=== PATIENT | female | born 1955 | race Caucasian/White ===

== ENCOUNTER 2020-09-11 21:57 | Inpatient (IN) | payer BC, MEDICARE ==
[~2020-09-11] VITALS: Ht 162.6 cm; Wt 51.3 kg
[~2020-09-11 21:57] MED LIST changes: -LORazepam 0.5 MG tablet PO PRN; -LORazepam 2 mg/ml vial IV ONE; -fluvoxamine 25 MG tablet PO SCH; -levoTHYROXINE 25mcg tablet PO SCH; -lithium carbonate 150mg capsule PO SCH; -lithium carbonate 150mg capsule PO STA; -mirtazapine 15mg tablet PO SCH; -normal saline 1000ml 1,000 ML IV ONE
[2020-09-11] MEDS ORDERED: acetaminophen 325mg tablet PO PRN ×2 (22:30)
[2020-09-11] MEDS ORDERED: magnesium hydroxide 30ml (MOM) UD suspension PO PRN (22:30)
[2020-09-11] MEDS ORDERED: loperamide 2mg capsule PO PRN (22:30)
[2020-09-11] MEDS ORDERED: mag hydrox/Alum hydrox/simeth 30ml oral suspension PO PRN (22:30)
[2020-09-11 22:41] VITALS: BP 112/69
--- NOTE | 2020-09-11 23:50 | NUR ---
NURSE ADMISSION NOTE: Pt was brought up to [facility] from ER via [facility] accompanied by staff on 09/11/2020 at 2140. Pt transferred from [facility] to [facility] bed, total assist. Belongings inventoried, 2 RN skin check completed. 5150 advisement completed and explained to pt. Pt placed on LOS r/t gomes catheter and IV. Pt was brought into ED on 09/11/20, reportedly catatonic by . She was unable to speak or move. reports she was taken off lithium 41 days ago and since then has been going in and out of catatonia. She received her 2nd ECT on 09/10 and was reportedly doing okay after, but on 09/11 after a nap she was unable to speak or move, and was brought into [facility]. Per record reported that she had a similar episode 3 years ago. She was receiving ativan 1mg IV Q6H in ER which was a continued order for [facility]. Pt is currently on sodium chloride solution Q10H, 100/ML/HR. Pt has Right wrist IV, 20 G. Pt has gomes catheter 16 peruvian, secured to left leg gravity draining clear, yellow. Per chart pt has been unable to urinate on her own and has a hx of hesitancy. IV fluids necessary due to inability to open mouth. Medical Hx per chart: Bipolar, anxiety, hypothyroidism, TBI is adult caregiver and very supportive, contact info : Sridhar Austin phone #[phone]
[2020-09-12] MEDS: normal saline 1000ml 1,000 ML IV SCH ×3 (02:06→21:30)
[2020-09-12] MEDS: LORazepam 2 mg/ml vial IV SCH ×4 (02:06→20:25)
--- NOTE | 2020-09-12 03:06 | NUR ---
Nursing Progress Note: Legal hold: 5150 ending on 09/14/20 2140 Client on voluntary/involuntary status for GD/DTS/DTO: GD Report received from nurse with use of SBAR: yes from ER Why are they here: Pt was brought into ED on 09/11/20, reportedly catatonic by . She was unable to speak or move. reports she was taken off lithium 41 days ago and since then has been going in and out of catatonia. She received her 2nd ECT on 09/10 and was reportedly doing okay after, but on 09/11 after a nap she was unable to speak or move, and was brought into [facility]. Per record reported that she had a similar episode 3 years ago. She was receiving ativan 1mg IV Q6H in ER which was a continued order for [facility]. Pt is currently on sodium chloride solution Q10H, 100/ML/HR. Pt has Right wrist IV, 20 G. Pt has gomes catheter 16 malaysian, secured to left leg gravity draining clear, yellow. Per chart pt has been unable to urinate on her own and has a hx of hesitancy. IV fluids necessary due to inability to open mouth. Medical Hx per chart: Bipolar, anxiety, hypothyroidism, TBI Assessment What has happened this shift: Pt was admitted this shift and unable to speak or move upon admission. LOS due to gomes and IV, total care. Pt being turned Q2 hours. At around 0100 pt began being able to move her left arm slightly and started saying words. By 0200 pt was able to speak in sentences. She is still only able to move her arms slightly, but she is not as rigid as when she first arrived on the unit. Pt states, "I was doing okay and then I suddenly locked up, I couldn't speak to my or move." "They took me off my lithium and ativan to do ECT." Human Resources Compliance Manager was able to now ask her some questions that were previously unable to be answered by her. She denies feeling suicidal at all and is not experiencing any AH/VH. Pt states she is feeling relieved because she can talk again. Pt says that normally she ambulates with a walker and is independent. She states that her is her "best friend" and not being able to answer him was very scary for her. Pt denies being in any pain. She is very cooperative and thankful to staff. Pt still feels unsure of trying to sip any liquid, so she is given ice chips which she enjoys because her mouth is feeling dry. S/I, H/I: denies A/VH: denies Sleep: see sleep assessment ADL's: total assist Group attendance:NA Were meds taken: IV med administered Any med S/E: YARELIS Mental Status Exam Appearance: WNL Eye contact: good Behavior: cooperative, limited due to inability to move Speech: pt went from being unable to move her mouth to speaking in sentences Mood: hopeful Affect: flat with some brightening Thought process: linear Thought Content: thinking about her , glad to be able to speak Cognition: good Insight: good Judgment: good Interventions PRN's used: NA Therapeutic interventions: LOS due to IV, gomes, total care. Physical assessment and 1:1 bedside assessment. Therapeutic listening and reassurance. Medication administration and education. Restraints/seclusion/emergency medication: NA Justification of Continued Inpatient Treatment: Pt needs crisis intervention and medication stabilization.
[2020-09-12] MEDS ORDERED: levoTHYROXINE 75mcg tablet PO SCH (07:00)
[2020-09-12 07:29] LABS: CHOL/HDL RATIO 3.7 (0.00-4.99); CHOLESTEROL 139 MG/DL (0-200); HDL CHOLESTEROL 38 MG/DL (35-60); LDL CHOLESTEROL 83 MG/DL (50-100); TRIGLYCERIDES 147 MG/DL (20-135)
[2020-09-12 07:31] LABS: HEMOGLOBIN A1C 5.7 % (4.5-6.2)
[2020-09-12 08:00] VITALS: BP 116/67
[2020-09-12] MEDS ORDERED: ascorbic acid 500mg tablet PO SCH (08:00)
[2020-09-12] MEDS ORDERED: amantadine 100 MG capsule PO SCH (08:00)
[2020-09-12] MEDS: docusate sod 100mg capsule PO SCH ×2 (08:16→21:12)
[2020-09-12] MEDS: fluvoxamine 25 MG tablet PO SCH ×2 (08:16→21:13)
[2020-09-12] MEDS ORDERED: lithium carbonate 150mg capsule PO ONE (12:10)
--- NOTE | 2020-09-12 15:29 | NUR ---
Nursing Progress Note: Legal hold: 5150 ending on 09/14/200 Client on voluntary/involuntary status for GD/DTS/DTO: GD Report received from nurse with use of SBAR: yes from ER Why are they here: Pt was brought into ED on 09/11/20, reportedly catatonic by . She was unable to speak or move. reports she was taken off lithium 41 days ago and since then has been going in and out of catatonia. She received her 2nd ECT on 09/10 and was reportedly doing okay after, but on 09/11 after a nap she was unable to speak or move, and was brought into [facility]. Per record reported that she had a similar episode 3 years ago. She was receiving ativan 1mg IV Q6H in ER which was a continued order for [facility]. Pt is currently on sodium chloride solution Q10H, 100/ML/HR. Pt has Right wrist IV, 20 G. Pt has gomes catheter 16 italian, secured to left leg gravity draining clear, yellow. Per chart pt has been unable to urinate on her own and has a hx of hesitancy. IV fluids necessary due to inability to open mouth. Medical Hx per chart: Bipolar, anxiety, hypothyroidism, TBI Assessment What has happened this shift: Patient was asleep at change of shift and awake before breakfast. Patient was able to speak in full sentences. Patient was preoccupied with her Gomes Catheter which appeared clogged but with patient moving seemed to start draining well. Patient does not have any pain on palpation of her bladder. Patient denies suicidal/homicidal ideation. Patient is depressed. Patient felt like she needed to have a BM and RN and tech assisted patient to the , ambulatory with assistance. Patient able to sit on the toilet without any help. Patient had a large hard BM. Patient ambulatory back to bed with assistance. S/I, H/I: denies A/VH: denies Sleep: cat napped today ADL's: total assist Group attendance:NA Were meds taken: IV and PO Any med S/E: Mental Status Exam Appearance: WNL Eye contact: good Behavior: cooperative Speech: Normal speech Mood: Depressed Affect: flat Thought process: linear Thought Content: thinking about her , glad to be able to speak Cognition: good Insight: good Judgment: good Interventions PRN's used: NA Therapeutic interventions: LOS due to IV, gomes, total care. Physical assessment and 1:1 bedside assessment. Therapeutic listening and reassurance. Medication administration and education. Restraints/seclusion/emergency medication: NA Justification of Continued Inpatient Treatment: Pt needs crisis intervention and medication stabilization.
--- NOTE | 2020-09-12 18:06 | NUR ---
Frank Cath removal. Placed in E.D. for convenience per Dr Brandon's note. Patient did not want Frank removed. Patient will have to share a bedside commode over the toilet. Patient's roommate is not happy. Needs cleaning between sittings. Patient will need 2 person assist to BR. RN did place pullup on patient and at bedside.
[2020-09-12 20:00] VITALS: BP 101/61
[2020-09-12] MEDS ORDERED: fluvoxamine 25 MG tablet PO SCH (21:00)
[2020-09-12] MEDS ORDERED: lithium carbonate 300mg SR tablet (LithoBID) PO SCH (21:00)
[2020-09-12] MEDS ORDERED: mirtazapine 15mg tablet PO SCH (21:00)
[2020-09-12] MEDS: mirtazapine 15mg tablet PO SCH (21:13)
[2020-09-13] MEDS: LORazepam 2 mg/ml vial IV SCH ×4 (02:17→20:23)
--- NOTE | 2020-09-13 05:07 | NUR ---
Nursing Progress Note: Legal hold: 5150 ending on 09/14/200 Client on voluntary/involuntary status for GD/DTS/DTO: GD Report received from nurse with use of SBAR: yes from Nhi CABEZAS Why are they here: Pt was brought into ED on 09/11/20, reportedly catatonic by . She was unable to speak or move. reports she was taken off lithium 41 days ago and since then has been going in and out of catatonia. She received her 2nd ECT on 09/10 and was reportedly doing okay after, but on 09/11 after a nap she was unable to speak or move, and was brought into [facility]. Per record reported that she had a similar episode 3 years ago. She was receiving ativan 1mg IV Q6H in ER which was a continued order for [facility]. Pt is currently on sodium chloride solution Q10H, 100/ML/HR. Pt has Right wrist IV, 20 G. Pt has gomes catheter 16 khmer, secured to left leg gravity draining clear, yellow. Per chart pt has been unable to urinate on her own and has a hx of hesitancy. IV fluids necessary due to inability to open mouth. Medical Hx per chart: Bipolar, anxiety, hypothyroidism, TBI Assessment What has happened this shift: Pt is on line of sight due to IV fluids and restricted mobility, although she is improving. Pt is able to answer questions on 1:1 assessment, her speech is clear, her mouth moves minimally and she is lacking expression. She asks freelance writer to go over her medications, freelance writer goes over all scheduled medications and provides medication education, pt verbalizes understanding. Client Service Coordinator asks if pt is able to feel when she needs to urinate or have a BM, pt states she is able to. Client Service Coordinator encourages to pt be vocal and alert staff so we can help her get to the bathroom and back, she verbalizes understanding. PT toileted and was able to urinate with no issues. Pt slept soundly. S/I, H/I: denies A/VH: denies Sleep: see sleep assessment ADL's: total assist Group attendance:NA Were meds taken: IV and PO Any med S/E: Mental Status Exam Appearance: WNL Eye contact: good Behavior: cooperative Speech: Normal speech Mood: Depressed Affect: flat, restricted Thought process: linear Thought Content:getting rest Cognition: good Insight: good Judgment: good Interventions PRN's used: NA Therapeutic interventions: LOS due to IV, Physical assessment and 1:1 bedside assessment. Therapeutic listening and reassurance. Medication administration and education. Restraints/seclusion/emergency medication: NA Justification of Continued Inpatient Treatment: Pt needs crisis intervention and medication stabilization.
[2020-09-13 07:38] VITALS: BP 110/57
[2020-09-13] MEDS: levoTHYROXINE 25mcg tablet PO SCH (07:51)
[2020-09-13] MEDS: docusate sod 100mg capsule PO SCH ×2 (07:51→20:26)
[2020-09-13] MEDS: fluvoxamine 25 MG tablet PO SCH ×2 (07:51→20:26)
[2020-09-13] MEDS: lithium carbonate 150mg capsule PO SCH (07:52)
[2020-09-13] MEDS: normal saline 1000ml 1,000 ML IV SCH ×2 (07:53→18:02)
[2020-09-13 20:00] VITALS: BP 111/66
[2020-09-13] MEDS: mirtazapine 15mg tablet PO SCH (20:26)
[2020-09-14] MEDS: LORazepam 2 mg/ml vial IV SCH ×4 (02:51→20:57)
[2020-09-14] MEDS: normal saline 1000ml 1,000 ML IV SCH ×3 (03:38→23:39)
--- NOTE | 2020-09-14 04:20 | NUR ---
Nursing Progress Note: Legal hold: 5150 ending on 09/14/200 Client on voluntary/involuntary status for GD/DTS/DTO: GD Report received from nurse with use of SBAR: yes from hNi CABEZAS Why are they here: Pt was brought into ED on 09/11/20, reportedly catatonic by . She was unable to speak or move. reports she was taken off lithium 41 days ago and since then has been going in and out of catatonia. She received her 2nd ECT on 09/10 and was reportedly doing okay after, but on 09/11 after a nap she was unable to speak or move, and was brought into [facility]. Per record reported that she had a similar episode 3 years ago. She was receiving ativan 1mg IV Q6H in ER which was a continued order for [facility]. Pt is currently on sodium chloride solution Q10H, 100/ML/HR. Pt has Right wrist IV, 20 G. Pt has gomes catheter 16 upper sorbian, secured to left leg gravity draining clear, yellow. Per chart pt has been unable to urinate on her own and has a hx of hesitancy. IV fluids necessary due to inability to open mouth. Medical Hx per chart: Bipolar, anxiety, hypothyroidism, TBI Assessment What has happened this shift: Patient is low fowlers in bed following shift change. 1:1 Interview at bedside. Patient is oriented to person and place, somewhat to situation. Patient expresses a flat affect. Speech is quiet, patient states she feels tired. Patient is medication compliant. She denies S/I, H/I, she denies any hallucinations. Patient is direct observation, a sitter is at bedside. IV NaCl is advancing at 100 ml an hour. Ativan is being given IV for patients lessening catatonic state. This patient is cooperative and friendly. Patient requests a review of medications prior to administration. This development writer complied. Patient is up to bedside commode with assist. Patient primarily sleeps this shift. S/I, H/I: Denies. A/VH: Denies. Sleep: Will tally at 0500 hours. ADL's: Total assist. Group attendance: No group on nights. Were meds taken: Yes, patient is medication compliant. Any med S/E: None noted or observed. Mental Status Exam Appearance: WNL Eye contact: Good. Behavior: Cooperative. Speech: Quiet, normal rate and rhythm. Mood: Depressed Affect: Flat, restricted. Thought process: Linear Thought Content: Getting rest. Cognition: Good. Insight: Good. Judgment:Good. Interventions PRN's used: None. Therapeutic interventions: LOS due to IV, Physical assessment and 1:1 bedside assessment. Therapeutic listening and reassurance. Medication administration and education. Restraints/seclusion/emergency medication: NA Justification of Continued Inpatient Treatment: Pt needs crisis intervention and medication stabilization.
[2020-09-14] MEDS: fluvoxamine 25 MG tablet PO SCH ×2 (07:27→21:16)
[2020-09-14] MEDS: levoTHYROXINE 25mcg tablet PO SCH (07:27)
[2020-09-14] MEDS: docusate sod 100mg capsule PO SCH ×2 (07:27→20:57)
[2020-09-14] MEDS: lithium carbonate 150mg capsule PO SCH (07:27)
[2020-09-14 07:39] VITALS: BP 119/70
--- NOTE | 2020-09-14 16:37 | NUR ---
Nursing Progress Note: Legal hold: 5150 ending on 09/14/200 Client on involuntary status for GD/DTS/DTO: GD Report received from WILLIAM Alston with use of SBAR Why are they here: Pt was brought into ED on 09/11/20, reportedly catatonic by . She was unable to speak or move. reports she was taken off lithium 41 days ago and since then has been going in and out of catatonia. She received her 2nd ECT on 09/10 and was reportedly doing okay after, but on 09/11 after a nap she was unable to speak or move, and was brought into [facility]. Per record reported that she had a similar episode 3 years ago. She was receiving ativan 1mg IV Q6H in ER which was a continued order for [facility]. Pt is currently on sodium chloride solution Q10H, 100/ML/HR. Pt has Right wrist IV, 20 G. Pt has gomes catheter 16 frisian, secured to left leg gravity draining clear, yellow. Per chart pt has been unable to urinate on her own and has a hx of hesitancy. IV fluids necessary due to inability to open mouth. Medical Hx per chart: Bipolar, anxiety, hypothyroidism, TBI Assessment What has happened this shift: Patient sleeping in bed at shift change. Normal saline is running at 100 ml/hr. I.V. Site right hand is CD&I. Patient complains of feeling exhausted. LOS was terminated at 11:00. Patient demonstrated the ability to push the call light when needing assistance, with frequent checks on patient in addition to q15 safety checks. Patient is urinating large amounts of urine throughout the day. Patient was able to ambulate 50 feet today. S/I, H/I: denies A/VH: denies Sleep: napped on and off during dayshift. ADL's: 2 person to ambulate to bedside commode. Can feed self. Total assist Group attendance:NA Were meds taken: IV and PO Any med S/E: None noted or reported. Mental Status Exam Appearance: Elderly small framed woman lying in bed dressed in a green dress. Eye contact: good Behavior: cooperative Speech: Soft. Mood: Depressed Affect: flat Thought process: linear Thought Content: Wanting to go home. Cognition: good Insight: good Judgment: good Interventions PRN's used: NA Therapeutic interventions: LOS due to IV, total care. Physical assessment and 1:1 bedside assessment. Therapeutic listening and reassurance. Medication administration and education. Restraints/seclusion/emergency medication: NA Justification of Continued Inpatient Treatment: Pt needs crisis intervention and medication stabilization.
[2020-09-14 20:00] VITALS: BP 113/68
[2020-09-14] MEDS: mirtazapine 15mg tablet PO SCH (20:57)
[2020-09-15] MEDS: LORazepam 2 mg/ml vial IV SCH ×4 (02:30→19:59)
--- NOTE | 2020-09-15 03:53 | NUR ---
Nursing Progress Note: Legal hold: 5150 ending on 09/14/200 Client on involuntary status for GD/DTS/DTO: GD Report received from JOCELYNN Hankins with use of SBAR Why are they here: Pt was brought into ED on 09/11/20, reportedly catatonic by . She was unable to speak or move. reports she was taken off lithium 41 days ago and since then has been going in and out of catatonia. She received her 2nd ECT on 09/10 and was reportedly doing okay after, but on 09/11 after a nap she was unable to speak or move, and was brought into [facility]. Per record reported that she had a similar episode 3 years ago. She was receiving ativan 1mg IV Q6H in ER which was a continued order for [facility]. Pt is currently on sodium chloride solution Q10H, 100/ML/HR. Pt has Right wrist IV, 20 G. Pt has gomes catheter 16 bulgarian, secured to left leg gravity draining clear, yellow. Per chart pt has been unable to urinate on her own and has a hx of hesitancy. IV fluids necessary due to inability to open mouth. Medical Hx per chart: Bipolar, anxiety, hypothyroidism, TBI Assessment What has happened this shift: Patient is in her room, mid fowlers in hospital bed. She awakens to voice and is alert. Patient has no 1:1 sitter as no tech is available per report at shift change. The patient has a NaCl IV running at 100 ml per hour. Frequent rounding checks are being done to check on patient needs. The patient is educated about her call dickens, she has used it to summon staff this shift. Patient is up to bedside commode to void multiple times this shift with assistance. IV Ativan is continued for treatment of catatonia. Patient exhibits quiet speech. She is medication compliant. Patient denies S/I or H/I. She denies hallucinations. Patient self repositions. Patient is is manually shifted also, at patients request the head of her bed is lowered for comfort. Patient voided in bed once during the night. Patient was cleaned, linen and bedding changed. S/I, H/I: Denies. A/VH: Denies. Sleep: Will tally at 0500 hour. ADL's: Needs assistance for toileting and ambulation. Group attendance: No groups on shift boss. Were meds taken: Yes, IV/PO. Medication compliant. Any med S/E: None noted or reported. Mental Status Exam Appearance: Elderly female, dressed in unit atire. Eye contact: Good. Behavior: Cooperative. Speech: Soft voice, regular rhythm. Mood: Depressed. Affect: Flat. Thought process: Linear. Thought Content: Sleepy, did not elaborate to this continuity writer. Cognition: Alert. Insight: Fair. Judgment: Fair. Interventions PRN's used: None. Therapeutic interventions: LOS due to IV, total care. Physical assessment and 1:1 bedside assessment. Therapeutic listening and reassurance. Medication administration and education. Restraints/seclusion/emergency medication: NA Justification of Continued Inpatient Treatment: Pt needs crisis intervention and medication stabilization.
[2020-09-15 07:52] VITALS: BP 135/79
[2020-09-15] MEDS: lithium carbonate 150mg capsule PO SCH (08:01)
[2020-09-15] MEDS: levoTHYROXINE 25mcg tablet PO SCH (08:01)
[2020-09-15] MEDS: docusate sod 100mg capsule PO SCH ×2 (08:01→19:59)
[2020-09-15] MEDS: fluvoxamine 25 MG tablet PO SCH ×3 (08:30→20:49)
[2020-09-15] MEDS: normal saline 1000ml 1,000 ML IV SCH ×2 (11:44→19:52)
--- NOTE | 2020-09-15 17:20 | NUR ---
Nursing Progress Note: Legal hold: vol Report received from WILLIAM Stanley with use of SBAR Why are they here: Pt was brought into ED on 09/11/20, reportedly catatonic by . She was unable to speak or move. reports she was taken off lithium 41 days ago and since then has been going in and out of catatonia. She received her 2nd ECT on 09/10 and was reportedly doing okay after, but on 09/11 after a nap she was unable to speak or move, and was brought into [facility]. Per record reported that she had a similar episode 3 years ago. She was receiving ativan 1mg IV Q6H in ER which was a continued order for [facility]. Pt is currently on sodium chloride solution Q10H, 100/ML/HR. Pt has Right wrist IV, 20 G. Pt has gomes catheter 16 kyrgyz, secured to left leg gravity draining clear, yellow. Per chart pt has been unable to urinate on her own and has a hx of hesitancy. IV fluids necessary due to inability to open mouth. Medical Hx per chart: Bipolar, anxiety, hypothyroidism, TBI Assessment What has happened this shift: Patient sleeping in bed at shift change. Normal saline is running at 100 ml/hr. I.V. Site right hand is CD&I. IV stopped during meals so pt can unhook and go to the dining room. Patient complains of feeling exhausted. Her speech is very low in volume. Frequent requests to sit on commode. Pt has flat/sad affect. Pt does not participate well in assessment. S/I, H/I: denies A/VH: denies Sleep: napped on and off during dayshift. ADL's: 2 person to ambulate to bedside commode. Can feed self. Total assist Group attendance:NA Were meds taken: IV and PO Any med S/E: None noted or reported. Mental Status Exam Appearance: Elderly small framed woman lying in bed dressed in a green dress. Eye contact: good Behavior: cooperative Speech: Soft. Mood: Depressed Affect: flat Thought process: linear Thought Content: Wanting to go home. Cognition: good Insight: good Judgment: good Interventions PRN's used: NA Therapeutic interventions: LOS due to IV, total care. Physical assessment and 1:1 bedside assessment. Therapeutic listening and reassurance. Medication administration and education. Restraints/seclusion/emergency medication: NA Justification of Continued Inpatient Treatment: Pt needs crisis intervention and medication stabilization.
[2020-09-15 19:25] VITALS: BP 121/74
[2020-09-15] MEDS: mirtazapine 15mg tablet PO SCH ×2 (20:00→20:57)
--- NOTE | 2020-09-15 21:17 | NUR ---
Nursing Progress Note: Legal hold: vol Report received from WILLIAM Hankins with use of SBAR Why are they here: Pt was brought into ED on 09/11/20, reportedly catatonic by . She was unable to speak or move. reports she was taken off lithium 41 days ago and since then has been going in and out of catatonia. She received her 2nd ECT on 09/10 and was reportedly doing okay after, but on 09/11 after a nap she was unable to speak or move, and was brought into [facility]. Per record reported that she had a similar episode 3 years ago. She was receiving ativan 1mg IV Q6H in ER which was a continued order for [facility]. Pt is currently on sodium chloride solution Q10H, 100/ML/HR. Pt has Right wrist IV, 20 G. Pt has gomes catheter 16 uzbek, secured to left leg gravity draining clear, yellow. Per chart pt has been unable to urinate on her own and has a hx of hesitancy. IV fluids necessary due to inability to open mouth. Medical Hx per chart: Bipolar, anxiety, hypothyroidism, TBI Assessment What has happened this shift: Pt was in group room at change of shift. Pt requested to be returned to her room and was assisted to bed. Pts IV was started and NaCL is running at 100 ml/hr. I.V. Site right hand is CD&I. Patient complains of feeling fatigued and is soft spoken. Frequent requests to sit on commode. Pt has flat/sad affect. S/I, H/I: denies A/VH: denies Sleep: see sleep hours ADL's: 2 person to ambulate to bedside commode. Can feed self. Total assist Group attendance:NA Were meds taken: IV and PO Any med S/E: None noted or reported. Mental Status Exam Appearance: Elderly small framed woman dressed in a green scrubs Eye contact: good Behavior: cooperative Speech: Soft. Mood: Depressed Affect: flat Thought process: linear Thought Content: Wanting to go home. Cognition: good Insight: good Judgment: good Interventions PRN's used: NA Therapeutic interventions: LOS due to IV, total care. Physical assessment and 1:1 bedside assessment. Therapeutic listening and reassurance. Medication administration and education. Restraints/seclusion/emergency medication: NA Justification of Continued Inpatient Treatment: Pt needs crisis intervention and medication stabilization.
[2020-09-16] MEDS: LORazepam 2 mg/ml vial IV SCH (02:55)
[2020-09-16] MEDS: normal saline 1000ml 1,000 ML IV SCH (03:08)
[2020-09-16 08:00] VITALS: BP 138/87
[2020-09-16] MEDS: levoTHYROXINE 25mcg tablet PO SCH (08:13)
[2020-09-16] MEDS: docusate sod 100mg capsule PO SCH ×2 (08:13→20:00)
[2020-09-16] MEDS: lithium carbonate 150mg capsule PO SCH (08:13)
[2020-09-16] MEDS: fluvoxamine 25 MG tablet PO SCH ×2 (08:14→20:00)
[2020-09-16] MEDS ORDERED: LORazepam 1 MG tablet PO SCH (09:10)
--- NOTE | 2020-09-16 10:02 | NUR ---
Initial: Pt admit DX catatonia on 5150 hold hx recently taken off Capac which has now been restarted per EMR. Pt AOx1 PO 0-25% avg MM5/vegetarian diet fluctuating w/ ~25% more recent meals not meeting needs. ALOC likely to impact PO; is receiving remeron. NILESH d/w RN regarding MVI if MD agreeable. RD recommends ensure enlive TIDWM; MD notified. LBM 09/15. Will continue to monitor for PO acceptance and additional protein/kcal needs. Rec: 1. continue vegetarian/MM5 diet per MD; encourage PO/assist w/ meals 2. MVI supplementation on vegetarian diet 3. ensure enlive TIDWM 4. bowel care per rx 5. weekly wts Addendum: 09/16/20 at [address] Amended: Links added.
[2020-09-16] MEDS: LORazepam 1 MG tablet PO SCH ×2 (13:26→21:00)
--- NOTE | 2020-09-16 13:54 | NUR ---
Nano's , Bartolo (ph# [phone]) called. He wanted to make sure social media marketing analyst knows that Nano has to be able to walk (with use of a walker) in order to return home. He reported he works during the day and she needs to be able to be ambulatory even if someone comes in to help her. He reported he is going to drop off some hygiene products for her as she had requested them. MARCELLO Ayers
--- NOTE | 2020-09-16 16:56 | NUR ---
Nursing Progress Note: Legal hold: vol Report received from WILLIAM Bettencourt with use of SBAR Why are they here: Pt was brought into ED on 09/11/20, reportedly catatonic by . She was unable to speak or move. reports she was taken off lithium 41 days ago and since then has been going in and out of catatonia. She received her 2nd ECT on 09/10 and was reportedly doing okay after, but on 09/11 after a nap she was unable to speak or move, and was brought into [facility]. Per record reported that she had a similar episode 3 years ago. She was receiving ativan 1mg IV Q6H in ER which was a continued order for [facility]. Pt is currently on sodium chloride solution Q10H, 100/ML/HR. Pt has Right wrist IV, 20 G. Pt has gomes catheter 16 mozambican, secured to left leg gravity draining clear, yellow. Per chart pt has been unable to urinate on her own and has a hx of hesitancy. IV fluids necessary due to inability to open mouth. Medical Hx per chart: Bipolar, anxiety, hypothyroidism, TBI Assessment What has happened this shift: Received pt sleeping in her bed. IV discontinued at the beginning of shift and pt. came to all meals. With encouragement, pt eating about 30% of her meals and drinking liquids. Pt has flat affect and continues to endorse depression and anxiety. Pt IVP Ativan changed to pill form. Pt concerned with taking too much Ativan making her lethargic, so Ativan changed to TID per MD. Pt ambulated 3x throughout the day about 20 feet each time. This is a 2 person process with one staff following behind with a wheelchair and the other helping move the walker along which she has difficulty doing on her own. S/I, H/I: denies A/VH: denies Sleep: napped on and off during dayshift. ADL's: 2 person to ambulate to bedside commode. Can feed self. Total assist Group attendance:NA Were meds taken: IV and PO Any med S/E: None noted or reported. Mental Status Exam Appearance: Elderly small framed woman lying in bed dressed in a green dress. Eye contact: good Behavior: cooperative Speech: Soft. Mood: Depressed Affect: flat Thought process: linear Thought Content: Wanting to go home. Cognition: good Insight: good Judgment: good Interventions PRN's used: NA Therapeutic interventions: LOS due to IV, total care. Physical assessment and 1:1 bedside assessment. Therapeutic listening and reassurance. Medication administration and education. Restraints/seclusion/emergency medication: NA Justification of Continued Inpatient Treatment: Pt needs crisis intervention and medication stabilization.
[2020-09-16 20:24] VITALS: BP 130/74
[2020-09-16] MEDS: mirtazapine 15mg tablet PO SCH (21:23)
--- NOTE | 2020-09-16 22:41 | NUR ---
Nursing Progress Note: Legal hold: vol Report received from WILLIAM Hankins with use of SBAR Why are they here: Pt was brought into ED on 09/11/20, reportedly catatonic by . She was unable to speak or move. reports she was taken off lithium 41 days ago and since then has been going in and out of catatonia. She received her 2nd ECT on 09/10 and was reportedly doing okay after, but on 09/11 after a nap she was unable to speak or move, and was brought into [facility]. Per record reported that she had a similar episode 3 years ago. She was receiving ativan 1mg IV Q6H in ER which was a continued order for [facility]. Pt is currently on sodium chloride solution Q10H, 100/ML/HR. Pt has Right wrist IV, 20 G. Pt has gomes catheter 16 mosotho, secured to left leg gravity draining clear, yellow. Per chart pt has been unable to urinate on her own and has a hx of hesitancy. IV fluids necessary due to inability to open mouth. Medical Hx per chart: Bipolar, anxiety, hypothyroidism, TBI Assessment What has happened this shift: Pt was in the group room at change of shift, Pt ambulated back to her room from the group room with fww and two person assistance. Gait belt was used and patient pushes her walker forward while taking steps. Pt was encouraged to drink fluids but drinks minimal amounts. Pt is med compliant but declines ativan stating it makes her feel too tired. S/I, H/I: denies A/VH: denies Sleep: napped on and off during dayshift. ADL's: 2 person to ambulate to bedside commode. Can feed self. Total assist Group attendance:NA Were meds taken: yes Any med S/E: pt states ativan is making her too tired Mental Status Exam Appearance: Elderly small framed woman lying in bed dressed in a green scrubs Eye contact: good Behavior: cooperative Speech: Soft. Mood: Depressed Affect: flat Thought process: linear Thought Content: Wanting to go home. Cognition: good Insight: good Judgment: good Interventions PRN's used: NA Therapeutic interventions: Physical assessment and 1:1 bedside assessment. Therapeutic listening and reassurance. Medication administration and education. Restraints/seclusion/emergency medication: NA Justification of Continued Inpatient Treatment: Pt needs crisis intervention and medication stabilization.
[2020-09-17] MEDS: lithium carbonate 150mg capsule PO SCH (07:47)
[2020-09-17] MEDS: docusate sod 100mg capsule PO SCH ×2 (07:47→20:50)
[2020-09-17] MEDS: LORazepam 1 MG tablet PO SCH ×4 (07:47→22:00)
[2020-09-17] MEDS: levoTHYROXINE 25mcg tablet PO SCH (07:48)
[2020-09-17] MEDS: fluvoxamine 25 MG tablet PO SCH ×2 (07:48→20:50)
[2020-09-17 08:00] VITALS: BP 137/73
--- NOTE | 2020-09-17 18:02 | NUR ---
Nursing Progress Note: Legal hold: Voluntary Report received from JOCELYNN Bettencourt with use of SBAR Why are they here: Patient was brought into ED on 09/11/20, reportedly catatonic by . She was unable to speak or move. reports she was taken off lithium 41 days ago and since then has been going in and out of catatonia. She received her 2nd ECT on 09/10 and was reportedly doing okay after, but on 09/11 after a nap she was unable to speak or move, and was brought into [facility]. Per record reported that she had a similar episode 3 years ago. She was receiving Ativan 1mg IV Q6H in ER which was a continued order for [facility]. Pt is currently on sodium chloride solution Q10H, 100/ML/HR. Pt has Right wrist IV, 20 G. Pt has gomes catheter 16 swiss, secured to left leg gravity draining clear, yellow. Per chart pt has been unable to urinate on her own and has hx of hesitancy. IV fluids necessary due to inability to open mouth. Medical Hx per chart: Bipolar, anxiety, hypothyroidism, TBI Assessment What has happened this shift: Received patient sleeping at shift change. Pt is in semi-dale position no distress noted. Pt is assisted to bedside commode without incident. Pt was assisted to group room for all meals. Pt is able to ambulate with 2PA. Pt is resistance to ambulation, but with encouragement, reassurance pt is compliant. Pts gait is unsteady. Pt ambulated from group room back to her room after breakfast. Prior to dinner pt ambulated 30 feet. Pt is able to verbalize her needs and has no somatic complaints. Pt has been more involved in her transfer from bed to commode and is able to bridge when in bed. Compliant with care and medication. Pt was showered this shift. No incontinent episodes today. Bowel movement at end of shift moderate, hard stool. Total INPUT 620 mL OUTPUT 1,000 mL. S/I, H/I: Pt denies both. A/VH: Pt denies both. Sleep: 9.5 hours per Sleep Assessment. Pt naps intermittently throughout day. ADL's: 1 person to ambulate to bedside commode. 2PA when ambulating. Able to feed self. Group attendance: Declined. Were meds taken: Yes, without hesitation. Any med S/E: None noted or reported. Mental Status Exam Appearance: Disheveled, elderly small framed woman. Wearing green unit scrubs. Eye contact: Good Behavior: Cooperative, reluctant to assist in ADLs, but with encouragement is compliant. Able to make needs known. Speech: Soft, minimal, slow. Mood: Depression Affect: Congruent with mood. Thought process: Linear Thought Content: Wants to go home. Cognition: Good Insight: Fair Judgment: Fair Interventions PRN's used: None Therapeutic interventions: LOS due to IV, total care. Physical assessment and 1:1 bedside assessment. Therapeutic listening and reassurance. Medication administration and education. Restraints/seclusion/emergency medication: N/A Justification of Continued Inpatient Treatment: Patient needs crisis intervention and medication stabilization.
[2020-09-17 19:40] VITALS: BP 131/74
[2020-09-17] MEDS: mirtazapine 15mg tablet PO SCH (20:50)
--- NOTE | 2020-09-17 23:08 | NUR ---
Nursing Progress Note: Legal hold: Voluntary Report received from JOCELYNN Bettencourt with use of SBAR Why are they here: Patient was brought into ED on 09/11/20, reportedly catatonic by . She was unable to speak or move. reports she was taken off lithium 41 days ago and since then has been going in and out of catatonia. She received her 2nd ECT on 09/10 and was reportedly doing okay after, but on 09/11 after a nap she was unable to speak or move, and was brought into [facility]. Per record reported that she had a similar episode 3 years ago. She was receiving Ativan 1mg IV Q6H in ER which was a continued order for [facility]. Pt is currently on sodium chloride solution Q10H, 100/ML/HR. Pt has Right wrist IV, 20 G. Pt has gomes catheter 16 chadian, secured to left leg gravity draining clear, yellow. Per chart pt has been unable to urinate on her own and has hx of hesitancy. IV fluids necessary due to inability to open mouth. Medical Hx per chart: Bipolar, anxiety, hypothyroidism, TBI Assessment What has happened this shift: Pt was in group room at change of shift. She reports no needs at this time, she is soft spoken and doesnt say much. She is however able to request needs. Pt spoke w/her before going to bed. Pt ambulated back to her room with 2PA and takes small steps but is able to push her FWW. Pt does get tired and rests periodically while walking back to her room. Pt was assisted to the commode prn. At med pass pt declined scheduled ativan but then later asked to take half her scheduled dose. S/I, H/I: Pt denies both. A/VH: Pt denies both. Sleep: 9.5 hours per Sleep Assessment. Pt naps intermittently throughout day. ADL's: 1 person to ambulate to bedside commode. 2PA when ambulating. Able to feed self. Group attendance: Declined. Were meds taken: Yes Any med S/E: None noted or reported. Mental Status Exam Appearance: neatly groomed, hair clean and braided, wearing black sweater and green scrubs Eye contact: Good Behavior: Cooperative, reluctant to assist in ADLs, but with encouragement is compliant. Able to make needs known. Speech: Soft, minimal, slow. Mood: Depression Affect: Congruent with mood. Thought process: Linear Thought Content: Wants to go home. Cognition: Good Insight: Fair Judgment: Fair Interventions PRN's used: None Therapeutic intervention: Physical assessment and 1:1 bedside assessment. Therapeutic listening and reassurance. Medication administration and education. Restraints/seclusion/emergency medication: N/A Justification of Continued Inpatient Treatment: Patient needs crisis intervention and medication stabilization.
[2020-09-18] MEDS: lithium carbonate 150mg capsule PO SCH (07:18)
[2020-09-18] MEDS: fluvoxamine 25 MG tablet PO SCH ×2 (07:18→19:51)
[2020-09-18] MEDS: levoTHYROXINE 25mcg tablet PO SCH (07:19)
[2020-09-18] MEDS: docusate sod 100mg capsule PO SCH ×2 (07:19→19:51)
[2020-09-18 08:00] VITALS: BP 129/75
--- NOTE | 2020-09-18 08:09 | NUR ---
Nano's , Bartolo (ph# [phone]), called for an update. He asked if Nano can receive physical therapy as she did last time she was here and it was helpful. He also requested Dr Crain call him. Farm Equipment Assembler will inquire about PT and ask Dr Crain to call him. MARCELLO Ayers
[2020-09-18] MEDS: LORazepam 1 MG tablet PO SCH ×2 (09:20→14:20)
--- NOTE | 2020-09-18 18:31 | NUR ---
Nursing Progress Note: Legal hold: Voluntary Report received from JOCELYNN Bettencourt with use of SBAR Why are they here: Patient was brought into ED on 09/11/20, reportedly catatonic by . She was unable to speak or move. reports she was taken off lithium 41 days ago and since then has been going in and out of catatonia. She received her 2nd ECT on 09/10 and was reportedly doing okay after, but on 09/11 after a nap she was unable to speak or move, and was brought into [facility]. Per record reported that she had a similar episode 3 years ago. She was receiving Ativan 1mg IV Q6H in ER which was a continued order for [facility]. Pt is currently on sodium chloride solution Q10H, 100/ML/HR. Pt has Right wrist IV, 20 G. Pt has gomes catheter 16 danish, secured to left leg gravity draining clear, yellow. Per chart pt has been unable to urinate on her own and has hx of hesitancy. IV fluids necessary due to inability to open mouth. Medical Hx per chart: Bipolar, anxiety, hypothyroidism, TBI Assessment What has happened this shift: Received patient sleeping at shift change. Pt was awoken prior to breakfast and assisted to bedside commode. Patient is wheeled down to meals and assisted in walking back to her room. Pt continues to be resistance to ambulation and going down to group room for meals. Pt states I am not ready or I cant do this. When talking to patient about voiding or BMs pt hushes communications writer. Pt states why cant I have privacy when I go? Pt is unable to walk from her bed to bathroom and uses bedside commode. Pt endorses passive SI not sure if I want to be here. Pt states I cant walk by myself. Line Maintainer Section reassured and encouraged patient throughout the day. Fluids were encouraged at each encounter. Pt brushed her teeth today independently and is assisting more with her transfers. Line Maintainer Section asked Dr. Crain about physical therapy, he is working on tapering Ativan, which could be causing her unsteady gait. Total INPUT 680 mL OUTPUT 820 mL. S/I, H/I: Endorses passive SI. A/VH: Pt denies both. Sleep: 6.0 hours per Sleep Assessment. Pt naps intermittently throughout day. ADL's: 1 person to ambulate to bedside commode. 2PA when ambulating. Able to feed self. Brushed teeth today. Group attendance: Declined. Were meds taken: Yes, without hesitation. Any med S/E: None noted or reported. Mental Status Exam Appearance: Disheveled, elderly small framed woman. Wearing green unit scrubs. Eye contact: Good Behavior: Cooperative, reluctant to assist in ADLs, but with encouragement is compliant. Able to make needs known. Speech: Soft, minimal, slow. Mood: Depression Affect: Congruent with mood. Thought process: Linear Thought Content: Wants to go home. Cognition: Good Insight: Fair Judgment: Fair Interventions PRN's used: None Therapeutic interventions: LOS due to IV, total care. Physical assessment and 1:1 bedside assessment. Therapeutic listening and reassurance. Medication administration and education. Restraints/seclusion/emergency medication: N/A Justification of Continued Inpatient Treatment: Patient needs crisis intervention and medication stabilization.
[2020-09-18 19:00] VITALS: BP 115/70
[2020-09-18] MEDS: LORazepam 0.5 MG tablet PO SCH (20:00)
[2020-09-18] MEDS: mirtazapine 15mg tablet PO SCH (20:00)
--- NOTE | 2020-09-19 02:43 | NUR ---
Nursing Progress Note: Legal hold: Voluntary Report received from JOCELYNN Shaw with use of SBAR Why are they here: Patient was brought into ED on 09/11/20, reportedly catatonic by . She was unable to speak or move. reports she was taken off lithium 41 days ago and since then has been going in and out of catatonia. She received her 2nd ECT on 09/10 and was reportedly doing okay after, but on 09/11 after a nap she was unable to speak or move, and was brought into [facility]. Per record reported that she had a similar episode 3 years ago. She was receiving Ativan 1mg IV Q6H in ER which was a continued order for [facility]. Pt is currently on sodium chloride solution Q10H, 100/ML/HR. Pt has Right wrist IV, 20 G. Pt has gomes catheter 16 yemeni, secured to left leg gravity draining clear, yellow. Per chart pt has been unable to urinate on her own and has hx of hesitancy. IV fluids necessary due to inability to open mouth. Medical Hx per chart: Bipolar, anxiety, hypothyroidism, TBI Assessment What has happened this shift: Pt was sitting in the group room at shift change. Pt had just finished eating a snack and was watching tv. Pt was cooperative for all assessments and care and accepted hs meds without issue. Pt speaks slowly but did not make any delusional statements and did not appear to be responding to IS. Pt did express some anxiety about going to bed and getting assistance. Pt was assisted by the techs to the bathroom and then to bed without issue. When asked about being suicidal, pt responded, I probably am. S/I, H/I: Endorses passive SI. A/VH: Pt denies both. Sleep: see sleep assessment ADL's: 1 person to ambulate to bedside commode. 2PA when ambulating. Able to feed self. Group attendance: n/a Were meds taken: Yes, without hesitation. Any med S/E: None noted or reported. Mental Status Exam Appearance: Disheveled, elderly small woman Eye contact: Good Behavior: Cooperative, reluctant to assist in ADLs Speech: Soft, minimal, slow. Mood: Depression Affect: Congruent with mood. Thought process: Linear Thought Content: anxious about needing assistance in restroom Cognition: Good Insight: Fair Judgment: Fair Interventions PRN's used: None Therapeutic interventions: Physical assessment and 1:1 bedside assessment. Therapeutic listening and reassurance. Medication administration and education. Providing a therapeutic environment. Restraints/seclusion/emergency medication: N/A Justification of Continued Inpatient Treatment: Patient needs crisis intervention and medication stabilization.
[2020-09-19] MEDS: fluvoxamine 25 MG tablet PO SCH ×2 (07:32→20:11)
[2020-09-19] MEDS: levoTHYROXINE 25mcg tablet PO SCH (07:32)
[2020-09-19] MEDS: lithium carbonate 150mg capsule PO SCH (07:32)
[2020-09-19] MEDS: docusate sod 100mg capsule PO SCH ×2 (07:32→20:09)
[2020-09-19 08:00] VITALS: BP 134/72
[2020-09-19] MEDS: LORazepam 0.5 MG tablet PO SCH ×3 (08:44→20:12)
[2020-09-19 09:38] LABS: CLARITY,URINE TURBID (Clear); COLOR,URINE YELLOW (Yellow); GLUCOSE, URINE NEGATIVE (Neg); KETONES,URINE 40 mg/dl (Neg); LEUKOCYTE ESTERASE ,URINE LARGE (Neg); NITRITES, URINE POSITIVE (Neg); OCCULT BLOOD,URINE LARGE (Neg); PROTEIN,URINE 100 mg/dl (Neg)
[2020-09-19 09:51] LABS: UA COLLECTION TYPE CLN CATCH MIDSTREAM
[2020-09-19 09:55] LABS: WBC,URINE TNTC /HPF (0-4)
[2020-09-19 09:57] LABS: BACTERIA,URINE 4+ /HPF (Neg); MUCUS STRANDS NONE SEEN /LPF (Neg); RBC,URINE 50-100 /HPF (0-2); SQUAMOUS EPITHELIAL CELL,UR NONE SEEN /LPF (FEW)
[2020-09-19 09:58] LABS: WBC CLUMPS,URINE MANY /HPF (NEGATIVE)
--- NOTE | 2020-09-19 13:20 | NUR ---
Reassessment: Per MD progress note, "she states that she is trying to drink reasonable amount of food and fluids," PO intake has improved from 0-25% intake to average of 25-49% intake. Was having small BMs, now moderate on 09/19, receiving daily colace. Rec: 1. continue vegetarian/MM5 diet per MD; encourage PO/assist w/ meals 2. MVI supplementation on vegetarian diet 3. ensure enlive TIDWM if OK with MD 4. bowel care per rx 5. weekly wts Addendum: 09/19/20 at [address] Amended: Links added.
--- NOTE | 2020-09-19 17:30 | NUR ---
Nursing Progress Note: Legal hold: Voluntary Report received from JOCELYNN Castillo with use of SBAR Why are they here: Patient was brought into ED on 09/11/20, reportedly catatonic by . She was unable to speak or move. reports she was taken off lithium 41 days ago and since then has been going in and out of catatonia. She received her 2nd ECT on 09/10 and was reportedly doing okay after, but on 09/11 after a nap she was unable to speak or move, and was brought into [facility]. Per record reported that she had a similar episode 3 years ago. She was receiving Ativan 1mg IV Q6H in ER which was a continued order for [facility]. Pt is currently on sodium chloride solution Q10H, 100/ML/HR. Pt has Right wrist IV, 20 G. Pt has Frank catheter 16 israeli, secured to left leg gravity draining clear, yellow. Per chart pt has been unable to urinate on her own and has hx of hesitancy. IV fluids necessary due to inability to open mouth. Medical Hx per chart: Bipolar, anxiety, hypothyroidism, TBI Assessment What has happened this shift: Received patient sleeping at shift change. Pt is arouses to name. Pt is assisted to bedside commode prior to breakfast. Pts urine was cloudy with a strong odor. No c/o of dysuria or abdominal pain. Obtained order for U/A. Pt was started on Cipiro 250mg BID per Dr. Crain. Pt is assisted to group room for all meals. Pt ambulated approximately 60 feet after breakfast. When asked if she was tired pt states Let me finish my walk. Pt ambulated 30 feet after lunch. Pt still endorses passive SI r/t being afraid of not getting better. Pt is able to communicate her needs. Pt still has some negative talk I cant move my fee. I cant lift my head. Pt continues to make small strides in helping staff with transferring her and ambulation. Okay to d/c I&Os per Dr. Crain. Continue to offer fluids at each encounter. Will continue to monitor. Ativan was decreased 0.5mg TID. S/I, H/I: Endorses passive SI. A/VH: Pt denies both. Sleep: 9.0 ours per Sleep Assessment. Pt naps intermittently throughout day. ADL's: 1 person to ambulate to bedside commode. 2PA when ambulating. Able to feed self. Brushed teeth today. Group attendance: No scheduled groups today. Were meds taken: Yes, without hesitation. Any med S/E: None noted or reported. Mental Status Exam Appearance: Disheveled, elderly small framed woman. Wearing green unit scrubs. Eye contact: Good Behavior: Cooperative, reluctant to assist in ADLs, but with encouragement is compliant. Able to make needs known. Speech: Soft, minimal, slow. Mood: Depression Affect: Congruent with mood. Thought process: Linear Thought Content: Wants to go home. Cognition: Good Insight: Fair Judgment: Fair Interventions PRN's used: None Therapeutic interventions: LOS due to IV, total care. Physical assessment and 1:1 bedside assessment. Therapeutic listening and reassurance. Medication administration and education. Restraints/seclusion/emergency medication: N/A Justification of Continued Inpatient Treatment: Patient needs crisis intervention and medication stabilization.
--- NOTE | 2020-09-19 18:18 | NUR ---
Pt's fluid intake this shift was 700 mL.
[2020-09-19 19:00] VITALS: BP 147/87
[2020-09-19] MEDS: mirtazapine 15mg tablet PO SCH (20:12)
[2020-09-19] MEDS: ciprofloxacin 250mg tablet PO SCH (22:00)
--- NOTE | 2020-09-20 00:17 | NUR ---
Nursing Progress Note: Legal hold: Voluntary Report received from JOCELYNN Shaw with use of SBAR Why are they here: Patient was brought into ED on 09/11/20, reportedly catatonic by . She was unable to speak or move. reports she was taken off lithium 41 days ago and since then has been going in and out of catatonia. She received her 2nd ECT on 09/10 and was reportedly doing okay after, but on 09/11 after a nap she was unable to speak or move, and was brought into [facility]. Per record reported that she had a similar episode 3 years ago. She was receiving Ativan 1mg IV Q6H in ER which was a continued order for [facility]. Pt is currently on sodium chloride solution Q10H, 100/ML/HR. Pt has Right wrist IV, 20 G. Pt has gomes catheter 16 new zealander, secured to left leg gravity draining clear, yellow. Per chart pt has been unable to urinate on her own and has hx of hesitancy. IV fluids necessary due to inability to open mouth. Medical Hx per chart: Bipolar, anxiety, hypothyroidism, TBI Assessment What has happened this shift: Pt was lying in bed at shift change, resting with her eyes closed. Pt was cooperative for 1:1, denying having any complaints. Pt is mildly anxious about getting help to use the restroom but was reassured that staff is here to help. Pt reports that s he is feeling stronger and was able to walk a longer distance today. Pt is now denying being suicidal. S/I, H/I: denies A/VH: Pt denies both. Sleep: see sleep assessment ADL's: 1 person to ambulate to bedside commode. 2PA when ambulating. Able to feed self. Group attendance: n/a Were meds taken: Yes, without hesitation. Any med S/E: None noted or reported. Mental Status Exam Appearance: Disheveled, elderly small woman Eye contact: Good Behavior: Cooperative, reluctant to assist in ADLs Speech: Soft, minimal, slow. Mood: Depression Affect: Congruent with mood. Thought process: Linear Thought Content: anxious about needing assistance in restroom Cognition: Good Insight: Fair Judgment: Fair Interventions PRN's used: None Therapeutic interventions: Physical assessment and 1:1 bedside assessment. Therapeutic listening and reassurance. Medication administration and education. Providing a therapeutic environment. Restraints/seclusion/emergency medication: N/A Justification of Continued Inpatient Treatment: Patient needs crisis intervention and medication stabilization.
[2020-09-20] MEDS: docusate sod 100mg capsule PO SCH ×2 (07:18→20:05)
[2020-09-20] MEDS: fluvoxamine 25 MG tablet PO SCH ×2 (07:18→20:06)
[2020-09-20] MEDS: lithium carbonate 150mg capsule PO SCH (07:18)
[2020-09-20] MEDS: levoTHYROXINE 25mcg tablet PO SCH (07:18)
[2020-09-20 07:41] LABS: BASOPHILS % (AUTO) 0.5 % (0-1); EOSINOPHILS # (AUTO) 0.1 X10'3 (0-0.9); EOSINOPHILS % (AUTO) 0.9 % (0-6); HEMATOCRIT 36.3 % (35.0-45.0); HEMOGLOBIN 12.7 g/dl (12.0-16.0); LYMPHOCYTES # (AUTO) 0.8 X10'3 (1.1-4.8); LYMPHOCYTES % (AUTO) 10.5 % (21-51); MEAN CORPUSCULAR HEMOGLOBIN 33.5 PG (27.0-31.0); MEAN CORPUSCULAR HGB CONC 35.1 g/dL (33.0-36.5); MEAN CORPUSCULAR VOLUME 95.3 FL (78-98); MEAN PLATELET VOLUME 9.1 FL (7.4-10.4); MONOCYTES # (AUTO) 0.7 X10'3 (0-0.9); MONOCYTES % (AUTO) 8.5 % (2-12); NEUTROPHILS # (AUTO) 6.1 X10'3 (1.8-7.7); NEUTROPHILS % (AUTO) 79.6 % (42-75); PLATELET COUNT 240 X10'3 (140-440); RED BLOOD COUNT 3.81 X10'6 (4.20-5.60); RED CELL DISTRIBUTION WIDTH 13.1 % (11.5-14.5); WHITE BLOOD COUNT 7.7 X10'3 (4.5-11.0)
[2020-09-20 07:59] LABS: ALANINE AMINOTRANSFERASE 21 U/L (12-78); ALBUMIN/GLOBULIN RATIO 0.9 (1.1-1.5); ALKALINE PHOSPHATASE 87 IU/L (46-116); ANION GAP 9 (8-16); ASPARTATE AMINO TRANSFERASE 15 U/L (10-37); BILIRUBIN,TOTAL 0.3 MG/DL (0.1-1.0); BLOOD UREA NITROGEN 9 MG/DL (7-18); BUN/CREATININE RATIO 9.9 (6.6-38.0); CALCIUM 10.2 MG/DL (8.5-10.1); CHLORIDE 110 MMOL/L (99-107); CREATININE 0.91 MG/DL (0.40-0.90); GLUCOSE 99 MG/DL (70-104); SODIUM 147 MMOL/L (135-145); TOTAL PROTEIN 6.5 G/DL (6.4-8.2); eGFR 62 ML/MIN
[2020-09-20 08:00] VITALS: BP 136/78
[2020-09-20 08:05] LABS: POTASSIUM 2.7 MMOL/L (3.5-5.1)
[2020-09-20] MEDS ORDERED: magnesium 4gm in 100ml NS 100 ML IV PRN (08:10)
[2020-09-20] MEDS ORDERED: potassium Cl 40MEQ/1/2NS 520ml 520 ML IV PRN (08:10)
[2020-09-20] MEDS ORDERED: potassium Cl 20 mEq SR tablet PO PRN ×2 (08:10)
[2020-09-20] MEDS ORDERED: magnesium Cl slow-release 64mg tablet PO PRN (08:10)
--- NOTE | 2020-09-20 08:13 | NUR ---
Critical lab: Lab called. Pt has 2.7 K+. Spoke with Dr Crain and placed pt on K+, Mag replacement protocol. Jossy CABEZAS is aware.
[2020-09-20] MEDS: potassium Cl 20 mEq SR tablet PO SCH ×2 (08:20→13:25)
[2020-09-20] MEDS: LORazepam 0.5 MG tablet PO SCH ×3 (08:50→20:06)
[2020-09-20] MEDS: ciprofloxacin 250mg tablet PO SCH ×2 (10:46→21:35)
[2020-09-20] MEDS ORDERED: POTASSIUM BICARB 20meq eff tab 20 MEQ TABLET.EFF PO SCH (13:35)
[2020-09-20] MEDS ORDERED: POTASSIUM BICARB 20meq eff tab 20 MEQ TABLET.EFF PO PRN ×2 (13:35)
--- NOTE | 2020-09-20 17:38 | NUR ---
Fluid intake today 1,200 mL
--- NOTE | 2020-09-20 18:01 | NUR ---
Nursing Progress Note: Legal hold: Voluntary Report received from JOCELYNN Castillo with use of SBAR Why are they here: Patient was brought into ED on 09/11/20, reportedly catatonic by . She was unable to speak or move. reports she was taken off lithium 41 days ago and since then has been going in and out of catatonia. She received her 2nd ECT on 09/10 and was reportedly doing okay after, but on 09/11 after a nap she was unable to speak or move, and was brought into [facility]. Per record reported that she had a similar episode 3 years ago. She was receiving Ativan 1mg IV Q6H in ER which was a continued order for [facility]. Pt is currently on sodium chloride solution Q10H, 100/ML/HR. Pt has Right wrist IV, 20 G. Pt has Frank catheter 16 indonesian, secured to left leg gravity draining clear, yellow. Per chart pt has been unable to urinate on her own and has hx of hesitancy. IV fluids necessary due to inability to open mouth. Medical Hx per chart: Bipolar, anxiety, hypothyroidism, TBI Assessment What has happened this shift: Received patient sleeping at shift change. Pt is arouses to name. Pt is assisted to bedside commode prior to breakfast. Received critical K+ result from CRN. Pt on protocol received 3 doses 40 meq's K+ chloride per protocol. Pt states she wasn't feeling well at breakfast, so communications writer did not ambulate patient back to room. 's vitals were WNL. Pt perseverated for a short time about not being able to move her legs. Pt was compliant with medication and care, continuing to see improvement in her involvement of care and alertness. Pt is becoming more verbal in voicing her needs, even got a little frustrated and said "I can't move my friggin head" even though she could. Pt continues to need encouragement and support. Ambulated from the group room to bedside, pushing walker independently. Pt talked about how she used to ride her bike and how much she enjoyed it. No bowel movement reported today, will need to monitor. Pt is urinating without difficulty or complaint. Pt brushed her teeth independently. Per recommendation from Dr. Larsen: pt consumed 1,200 mL of fluids this shift. When asked about SI pt stated "sometimes I think I will in this place." Pt did voice "I think I am getting a little better." No delusional statements made, does not appear to be responding to internally stimuli. S/I, H/I: "Sometimes I think I will in this place." A/VH: Pt denies both. Sleep: 7.25 hours per Sleep Assessment. Pt naps intermittently throughout day. ADL's: 1 person to ambulate to bedside commode. 1PA when ambulating. Able to feed self. Brushed teeth today. Group attendance: No scheduled groups today. Were meds taken: Yes, without hesitation. Any med S/E: None noted or reported. Mental Status Exam Appearance: Disheveled, elderly small framed woman. Wearing green unit scrubs and blue sweater. Eye contact: Good Behavior: Cooperative, becoming more independent with ADL's, wants to walk Speech: Soft, minimal, slow. Mood: Depressed Affect: Congruent with mood. Thought process: Linear Thought Content: Wants to go home. Cognition: Intact. Insight: Fair Judgment: Fair Interventions PRN's used: None Therapeutic interventions: Maintained therapeutic milieu, medication administration/education/monitoring, provided active listening with positive feedback, encouraged involvement with ADL's, ambulated pt BID, assisted to bedside commode, Q15 min safety checks. Restraints/seclusion/emergency medication: N/A Justification of Continued Inpatient Treatment: Patient needs crisis intervention and medication stabilization. Addendum: 09/20/20 at 1820 by Jossy Arvizu RN Pt still has some delay when attempting to put thoughts together or answer question. Pt repeats herself at times.
--- NOTE | 2020-09-20 18:13 | NUR ---
Reported to RN, pt had a hard, formed moderate bowel movement. Pt states it feels "a little softer." May need to increase stool softener. Will continue to monitor.
[2020-09-20 19:00] VITALS: BP 120/80
[2020-09-20] MEDS: K and/or MAG REPLACEMENT MC SCH (20:05)
[2020-09-20] MEDS: mirtazapine 15mg tablet PO SCH (20:07)
--- NOTE | 2020-09-21 01:45 | NUR ---
Nursing Progress Note: Legal hold: Voluntary Report received from JOCELYNN Shaw with use of SBAR Why are they here: Patient was brought into ED on 09/11/20, reportedly catatonic by . She was unable to speak or move. reports she was taken off lithium 41 days ago and since then has been going in and out of catatonia. She received her 2nd ECT on 09/10 and was reportedly doing okay after, but on 09/11 after a nap she was unable to speak or move, and was brought into [facility]. Per record reported that she had a similar episode 3 years ago. She was receiving Ativan 1mg IV Q6H in ER which was a continued order for [facility]. Pt is currently on sodium chloride solution Q10H, 100/ML/HR. Pt has Right wrist IV, 20 G. Pt has gomes catheter 16 brazilian, secured to left leg gravity draining clear, yellow. Per chart pt has been unable to urinate on her own and has hx of hesitancy. IV fluids necessary due to inability to open mouth. Medical Hx per chart: Bipolar, anxiety, hypothyroidism, TBI Assessment What has happened this shift: Pt mostly stayed in bed during the evening shift. Pt appears to be speaking at a more normal rate and seems to be a little stronger physically. Pt mood also appeared to be improving. Pt has no complaints and denies being suicidal. Pt expressed that she is looking forward to returning home with her soon. S/I, H/I: denies A/VH: Pt denies both. Sleep: see sleep assessment ADL's: 1 person to ambulate to bedside commode. 2PA when ambulating. Able to feed self. Group attendance: n/a Were meds taken: Yes, without hesitation. Any med S/E: None noted or reported. Mental Status Exam Appearance: Disheveled, elderly small woman Eye contact: Good Behavior: Cooperative, reluctant to assist in ADLs Speech: Soft, minimal, slow. Mood: Depression Affect: Congruent with mood. Thought process: Linear Thought Content: anxious about needing assistance in restroom Cognition: Good Insight: Fair Judgment: Fair Interventions PRN's used: None Therapeutic interventions: Physical assessment and 1:1 bedside assessment. Therapeutic listening and reassurance. Medication administration and education. Providing a therapeutic environment. Restraints/seclusion/emergency medication: N/A Justification of Continued Inpatient Treatment: Patient needs crisis intervention and medication stabilization.
[2020-09-21 07:10] LABS: ALBUMIN 2.8 G/DL (3.4-5.0); ANION GAP 8 (8-16); BLOOD UREA NITROGEN 12 MG/DL (7-18); BUN/CREATININE RATIO 12.8 (6.6-38.0); CALCIUM 9.9 MG/DL (8.5-10.1); CHLORIDE 112 MMOL/L (99-107); CREATININE 0.94 MG/DL (0.40-0.90); GLUCOSE 90 MG/DL (70-104); POTASSIUM 4.2 MMOL/L (3.5-5.1); SODIUM 149 MMOL/L (135-145); TOTAL CARBON DIOXIDE 29.4 MMOL/L (24-32); eGFR 59 ML/MIN
[2020-09-21] MEDS: fluvoxamine 25 MG tablet PO SCH ×2 (07:58→19:40)
[2020-09-21] MEDS: LORazepam 0.5 MG tablet PO SCH ×3 (07:59→21:23)
[2020-09-21] MEDS: lithium carbonate 150mg capsule PO SCH (07:59)
[2020-09-21] MEDS: levoTHYROXINE 25mcg tablet PO SCH (07:59)
[2020-09-21] MEDS: docusate sod 100mg capsule PO SCH ×2 (07:59→19:40)
[2020-09-21] MEDS: K and/or MAG REPLACEMENT MC SCH ×2 (08:00→20:00)
[2020-09-21 08:34] VITALS: BP 117/69
[2020-09-21] MEDS: ciprofloxacin 250mg tablet PO SCH ×2 (10:19→21:23)
--- NOTE | 2020-09-21 17:13 | NUR ---
Nursing Progress Note: Legal hold: Voluntary Report received from JOCELYNN Castillo with use of SBAR Why are they here: Patient was brought into ED on 09/11/20, reportedly catatonic by . She was unable to speak or move. reports she was taken off lithium 41 days ago and since then has been going in and out of catatonia. She received her 2nd ECT on 09/10 and was reportedly doing okay after, but on 09/11 after a nap she was unable to speak or move, and was brought into [facility]. Per record reported that she had a similar episode 3 years ago. She was receiving Ativan 1mg IV Q6H in ER which was a continued order for [facility]. Pt is currently on sodium chloride solution Q10H, 100/ML/HR. Pt has Right wrist IV, 20 G. Pt has Frank catheter 16 indian, secured to left leg gravity draining clear, yellow. Per chart pt has been unable to urinate on her own and has hx of hesitancy. IV fluids necessary due to inability to open mouth. Medical Hx per chart: Bipolar, anxiety, hypothyroidism, TBI Assessment What has happened this shift: Princess has improved. She still moves and speaks very slowly. She is reluctant to take part in any activities. She feels helpless and hopeless about her situation and feels that she will not get better. She denies suicidal ideation. She is currently not very interested in talking to her on the phone or any other activities. She was able to ambulate to the toilet by herself. She did not complain of any incontinence. She is brought to the group room for meals by wheelchair. S/I, H/I: Hopeless, helpless A/VH: Pt denies both. Sleep: Pt naps intermittently throughout day. ADL's: 1 person to ambulate to bedside commode. 2PA when ambulating. Able to feed self. Brushed teeth today. No shower but needs one. Group attendance: No, reluctant to leave room. Were meds taken: Yes, with some hesitation and questioning. Any med S/E: None observed or reported. Mental Status Exam Appearance: Disheveled, elderly small framed woman. Wearing green unit scrubs. Eye contact: Good Behavior: Able to make needs known. Pleasant, resistant to ambulation and sometimes medication but will comply to some extent with encouragement. Speech: Soft, impoverished, slow. Mood: I am tired. Affect: Flat Thought process: Linear Thought Content: Perseverative thoughts about not being able to do things and feeling weak. Cognition: Good Insight: Poor Judgment: Poor Interventions PRN's used: None Therapeutic interventions: Physical assessment and 1:1 bedside assessment. Therapeutic listening and reassurance. Medication administration and education. Restraints/seclusion/emergency medication: N/A Justification of Continued Inpatient Treatment: Patient needs crisis intervention and medication stabilization.
[2020-09-21 20:00] VITALS: BP 134/81
[2020-09-21] MEDS: mirtazapine 15mg tablet PO SCH (21:23)
--- NOTE | 2020-09-22 03:37 | NUR ---
Nursing Progress Note: Legal hold: Voluntary Report received from JOCELYNN Shaw with use of SBAR Why are they here: Patient was brought into ED on 09/11/20, reportedly catatonic by . She was unable to speak or move. reports she was taken off lithium 41 days ago and since then has been going in and out of catatonia. She received her 2nd ECT on 09/10 and was reportedly doing okay after, but on 09/11 after a nap she was unable to speak or move, and was brought into [facility]. Per record reported that she had a similar episode 3 years ago. She was receiving Ativan 1mg IV Q6H in ER which was a continued order for [facility]. Pt is currently on sodium chloride solution Q10H, 100/ML/HR. Pt has Right wrist IV, 20 G. Pt has Frank catheter 16 frisian, secured to left leg gravity draining clear, yellow. Per chart pt has been unable to urinate on her own and has hx of hesitancy. IV fluids necessary due to inability to open mouth. Medical Hx per chart: Bipolar, anxiety, hypothyroidism, TBI Assessment What has happened this shift: At beginning of shift, pt. was sitting in a chair in the group room. S/I, H/I: Denied both A/VH: Pt denies both. Sleep: Sleeping well,with mouth open ADL's: 1 person to ambulate to bathroom. Able to feed self. Group attendance: N/A Were meds taken: Yes, with some hesitation and questioning, wanted [facility] tech in room - untrusting. Any med S/E: None observed or reported. Mental Status Exam Appearance: Disheveled, elderly small framed woman, wearing green unit scrubs and her cardigan. Eye contact: Fair Behavior: Able to make needs known. Speech: Soft, impoverished, slow. Mood: Depressed Affect: Flat Thought process : YARELIS Thought Content: YARELIS Cognition: Fair Insight: Poor Judgment: Poor Interventions PRN's used: None Therapeutic interventions: Physical assessment and 1:1 bedside assessment. Therapeutic listening and reassurance. Medication administration and education. Restraints/seclusion/emergency medication: N/A Justification of Continued Inpatient Treatment: Patient needs crisis intervention and medication stabilization. Addendum: 09/22/20 at 0401 by Natalie Rondon RN Patient went back to her room via w/c before snack time. Pt. assisted to restroom and then wanted to go to bed.
[2020-09-22 07:11] LABS: MAGNESIUM 2.1 MG/DL (1.5-2.4); POTASSIUM 3.7 MMOL/L (3.5-5.1)
[2020-09-22] MEDS: LORazepam 0.5 MG tablet PO SCH ×4 (08:00→20:06)
[2020-09-22] MEDS: K and/or MAG REPLACEMENT MC SCH ×2 (08:03→20:00)
[2020-09-22] MEDS: lithium carbonate 150mg capsule PO SCH ×2 (08:04→09:17)
[2020-09-22] MEDS: levoTHYROXINE 25mcg tablet PO SCH ×2 (08:04→09:11)
[2020-09-22] MEDS: docusate sod 100mg capsule PO SCH ×3 (08:04→20:06)
[2020-09-22] MEDS: fluvoxamine 25 MG tablet PO SCH ×3 (08:04→20:06)
[2020-09-22 08:17] VITALS: BP 130/75
[2020-09-22] MEDS ORDERED: zolpidem 5mg tablet PO ONE (08:45)
[2020-09-22] MEDS: ciprofloxacin 250mg tablet PO SCH ×2 (10:26→21:01)
--- NOTE | 2020-09-22 16:52 | NUR ---
Reassessment: Pt has improved PO intake from admission, past three days eating average of 75% and offered snacks. MM5 diet was cancelled. Will continue to follow. Rec: 1. continue vegetarian 2. MVI supplementation on vegetarian diet 3. weekly wts Addendum: 09/22/20 at [address] Amended: Links added.
--- NOTE | 2020-09-22 17:38 | NUR ---
Continued Group Art Therapy: This patient was active yet moving very slowly, as she was able to understand, engage and follow through with the exercises as presented. Patient pavan a picture of a heart expressing love. Patient was able to share during the group process, however, her voice was very soft and difficult to hear. She was willing to have this therapist read her work (louder) to the group. Patient was also attentive and able to listen as her peers were sharing their work. She would clap (on cue) following the each persons sharing. Mirella Mathur MA Licensed Marriage, Family Therapist [facility] Art Therapist Addendum: 09/22/20 at 1741 by Mirella Mathur Amended: Links added.
--- NOTE | 2020-09-22 17:41 | NUR ---
Nursing Progress Note: Legal hold: Voluntary Report received from JOCELYNN Shaw with use of SBAR Why are they here: Patient was brought into ED on 09/11/20, reportedly catatonic by . She was unable to speak or move. reports she was taken off lithium 41 days ago and since then has been going in and out of catatonia. She received her 2nd ECT on 09/10 and was reportedly doing okay after, but on 09/11 after a nap she was unable to speak or move, and was brought into [facility]. Per record reported that she had a similar episode 3 years ago. She was receiving Ativan 1mg IV Q6H in ER which was a continued order for [facility]. Pt is currently on sodium chloride solution Q10H, 100/ML/HR. Pt has Right wrist IV, 20 G. Pt has Frank catheter 16 indonesian, secured to left leg gravity draining clear, yellow. Per chart pt has been unable to urinate on her own and has hx of hesitancy. IV fluids necessary due to inability to open mouth. Medical Hx per chart: Bipolar, anxiety, hypothyroidism, TBI Assessment What has happened this shift: Received patient sleeping at shift change, no distress noted. Upon meeting pt c/o I cant move my legs [addresses director underwriter sales by name]. Pt is very negative in her talk feeling hopeless about her situation. Pt denies SI. Pt stares off when not speaking too and has rigid movements. Pt was wheeled-down to group room and sat and stared. Spoke with Dr. Crain held Ativan 0.5mg and administered Ambien 5mg without effect. Dr. Crain talked about titrating her Ativan again. Will need to monitor behavior and mood. Will endorse to next shift. Pt states I cant swallow, even though when water was put to her mouth she was able to swallow without difficulty. Enroute Controller crushed AM medication and administered with applesauce without issue. Pt required more assistance to bedside commode. Encouraged fluids today, pt drinks water better without the straw. Pt came out of her staring and rigid state and began participating in care. Pt participated in AM group doing chair exercises. It appeared to take pt time to process the exercise, but then she attempted to move arms and legs as shown. Throughout the day patient needed to be reassured that staff was here to help her walk. Pt perseverated on no one will know how to get me up to the bathroom. Am I going to have to walk without my walker? Pt was shown her call light on several occasions to reassure her safety. Pt ambulates well with 2PA and ambulated down to group room for dinner as opposed to being wheeled down. K+ level was 3.7mg Mg 2.1mg. Difficult to get pt drink today total intake was 700 mL. S/I, H/I: Denies SI/HI. Feels hopeless, helpless A/VH: Pt denies both. Sleep: 7.25 NOC sleep assessment. Pt naps intermittently throughout day. ADL's: 1 person to ambulate to bedside commode. 2PA when ambulating. Able to feed self. Brushed teeth today. No shower but needs one. Group attendance: Declined not feeling well Were meds taken: Yes, with some hesitation and questioning. Any med S/E: None observed or reported. Mental Status Exam Appearance: Disheveled, elderly small framed woman. Wearing green unit scrubs and blue sweater. Eye contact: Good Behavior: Able to make needs known. Pleasant, resistant to ambulation and sometimes medication but will comply to some extent with encouragement. Speech: Soft, able to increase to when asked, slow. Mood: Depressed, hopeless. Affect: Flat Thought process: Linear, perseverating. Thought Content: Perseverative thoughts about not being able to do things and feeling weak. Cognition: Good Insight: Poor Judgment: Poor Interventions PRN's used: None Therapeutic interventions: Physical assessment and 1:1 bedside assessment. Maintained safe and therapeutic environment, therapeutic listening and reassurance. Medication administration/education/monitoring; Q15 min safety checks. Restraints/seclusion/emergency medication: N/A Justification of Continued Inpatient Treatment: Patient needs crisis intervention and medication stabilization.
[2020-09-22 19:00] VITALS: BP 125/80
[2020-09-22] MEDS: mirtazapine 15mg tablet PO SCH (20:06)
--- NOTE | 2020-09-23 00:54 | NUR ---
Nursing Progress Note: Legal hold: Voluntary Report received from JOCELYNN Shaw with use of SBAR Why are they here: Patient was brought into ED on 09/11/20, reportedly catatonic by . She was unable to speak or move. reports she was taken off lithium 41 days ago and since then has been going in and out of catatonia. She received her 2nd ECT on 09/10 and was reportedly doing okay after, but on 09/11 after a nap she was unable to speak or move, and was brought into [facility]. Per record reported that she had a similar episode 3 years ago. She was receiving Ativan 1mg IV Q6H in ER which was a continued order for [facility]. Pt is currently on sodium chloride solution Q10H, 100/ML/HR. Pt has Right wrist IV, 20 G. Pt has Rfank catheter 16 slovenian, secured to left leg gravity draining clear, yellow. Per chart pt has been unable to urinate on her own and has hx of hesitancy. IV fluids necessary due to inability to open mouth. Medical Hx per chart: Bipolar, anxiety, hypothyroidism, TBI Assessment What has happened this shift: The patient was in the group room at shift change. She was sitting looking at the wall. She received a call from her a little later, but was reluctant to talk to him. She told this gag writer that she needs help. Myself and JEFF Cheek assisted her to her room. In her room, she made sure everything was in the right spot, walker, BSC, etc. She fears that she will need assistance, but nobody will come. The patient was ensured that assistance will come, and made sure she knows where the call light is. She reports still feeling helpless and hopeless. S/I, H/I: Hopeless, helpless A/VH: Denies. Sleep: See sleep assessment. ADL's: Continues to require assist with toileting and ambulation.. Group attendance: No. Were meds taken: Yes. Any med S/E: None observed or reported. Mental Status Exam Appearance: Disheveled, elderly small framed woman. Wearing green unit scrubs. Eye contact: Good Behavior: Reluctance to do anything, perseverative thought, hopeless, anxious. Speech: Soft, impoverished, slow. Mood: Hopeless Affect: Flat Thought process: Linear Thought Content: Perseverative thoughts about not being able to do things and feeling weak. Cognition: Good Insight: Poor Judgment: Poor Interventions PRN's used: None Therapeutic interventions: Physical assessment and 1:1 bedside assessment. Therapeutic listening and reassurance. Medication administration and education. Restraints/seclusion/emergency medication: N/A Justification of Continued Inpatient Treatment: Patient needs crisis intervention and medication stabilization.
[2020-09-23] MEDS: mirtazapine 15mg tablet PO SCH ×2 (02:06→21:16)
[2020-09-23] MEDS: K and/or MAG REPLACEMENT MC SCH ×2 (07:12→20:00)
[2020-09-23] MEDS: fluvoxamine 25 MG tablet PO SCH ×2 (07:28→21:16)
[2020-09-23] MEDS: LORazepam 0.5 MG tablet PO SCH ×3 (07:28→21:16)
[2020-09-23] MEDS: lithium carbonate 150mg capsule PO SCH (07:28)
[2020-09-23] MEDS: docusate sod 100mg capsule PO SCH ×2 (07:28→21:15)
[2020-09-23] MEDS: levoTHYROXINE 25mcg tablet PO SCH (07:28)
[2020-09-23 07:49] VITALS: BP 148/83
[2020-09-23] MEDS: ciprofloxacin 250mg tablet PO SCH ×2 (09:46→21:16)
--- NOTE | 2020-09-23 10:00 | NUR ---
Group Therapy: Process Group This Clinicians goal for this process group were as follows: (1) Introduce and provide psychoeducation on Ribeiro ABC method. (2) Practice working through Ribeiro ABC method using examples provided by this Clinician. (3) Encourage patients to process some of their own reoccurring situations utilizing Ribeiro ABC methodology. (4) Process patients thoughts and reflections on this topic within the group milieu. Milieu staff were present in group to monitor Patient behaviors. Patient identified experiencing the following levels of anxiety, depression, and anger/irritability while present in the group milieu (0-low; 10-High). Anxiety: 8/10 Depression: 7/10 Anger/irritability: 0/10 Patient presented as properly oriented x4 during the process group. Patient was dressed in nondescript, dark, personal clothing that were appropriate within the milieu. Psychomotor activity was unremarkable. Patient was seated in a wheel chair, and ambulated with its assistance. Patient's thought content was clear, and concrete. Patient's thought process was clear, coherent, and linear. This Clinician did not observe Patient responding to any internal stimuli during session. The rate, and latency of Patient's speech was slightly delayed. The tone of her speech was soft, which made it difficult for this Clinician to understand Patient on occasion. Patient maintained regular eye contact with this Clinician. Patient presented in calm euthymic mood, with blunted affect during the process group. Patient presented as cooperative, verbally engaged when directly addressed by this Clinician, and nonobtrusive within the group milieu. During her initial check-in with this Clinician, Patient reported experiencing heightened symptoms of depression, and anxiety, which she reported manifested in her body as symptoms of, "Tightness." Patient was able to identify short answers, identifying certain negative emotional consequences, "Feelings," that one could expect to experience as a result of negative adverse events. Patient was summoned by a medical doctor for an interview, hence, she left the group milieu with about ten minutes left to go during the process group and did not return. Frantz Mahoney MA, MARCELLO Addendum: 09/24/20 at 0824 by Frantz SAEED Amended: Links added.
[2020-09-23 10:10] LABS: MAGNESIUM 2.1 MG/DL (1.5-2.4); POTASSIUM 4.2 MMOL/L (3.5-5.1)
--- NOTE | 2020-09-23 17:45 | NUR ---
Nursing Progress Note: Nano: Legal hold: Voluntary Report received from Zoie Nieves RN with use of SBAR Why are they here: Patient was brought into ED on 09/11/20, reportedly catatonic by . She was unable to speak or move. reports she was taken off lithium 41 days ago and since then has been going in and out of catatonia. She received her 2nd ECT on 09/10 and was reportedly doing okay after, but on 09/11 after a nap she was unable to speak or move, and was brought into [facility]. Per record reported that she had a similar episode 3 years ago. She was receiving Ativan 1mg IV Q6H in ER which was a continued order for [facility]. Pt is currently on sodium chloride solution Q10H, 100/ML/HR. Pt has Right wrist IV, 20 G. Pt has Frank catheter 16 bengali, secured to left leg gravity draining clear, yellow. Per chart pt has been unable to urinate on her own and has hx of hesitancy. IV fluids necessary due to inability to open mouth. Medical Hx per chart: Bipolar, anxiety, hypothyroidism, TBI Assessment What has happened this shift: The patient was sitting in wheelchair assissted by PCT, watching TV this AM. 1;1 assessment done, pt soft spoken, stating she feels " a little shaky this morning." Pt remained calm and cooperative all AM meds taken. Pt wanted to go back to bed after breakfast, however encouraged to stay in the community room for group session . Pt did well for her walk this morning, walked about 50 feet. S/I, H/I: Denies A/VH: Denies. Sleep: See sleep assessment. ADL's: Continues to require assist with toileting and ambulation.. Group attendance: Yes Were meds taken: Yes. Any med S/E: None observed or reported. Mental Status Exam Appearance: Disheveled, elderly small framed woman. Wearing green unit scrubs. Eye contact: Good Behavior: Reluctance to do anything, perseverative thought, hopeless, anxious. Speech: Soft, impoverished, slow. Mood: Hopeless Affect: Flat Thought process: Linear Thought Content: Perseverative thoughts about not being able to do things and feeling weak. Cognition: Good Insight: Poor Judgment: Poor Interventions PRN's used: None Therapeutic interventions: Physical assessment and 1:1 bedside assessment. Therapeutic listening and reassurance. Medication administration and education. Restraints/seclusion/emergency medication: N/A Justification of Continued Inpatient Treatment: Patient needs crisis intervention and medication stabilization.
[2020-09-23 20:00] VITALS: BP 123/84
[2020-09-23 22:14] VITALS: BP 123/84
--- NOTE | 2020-09-24 00:33 | NUR ---
Nursing Progress Note: Legal hold: Voluntary Report received from JOCELYNN Shaw with use of SBAR Why are they here: Patient was brought into ED on 09/11/20, reportedly catatonic by . She was unable to speak or move. reports she was taken off lithium 41 days ago and since then has been going in and out of catatonia. She received her 2nd ECT on 09/10 and was reportedly doing okay after, but on 09/11 after a nap she was unable to speak or move, and was brought into [facility]. Per record reported that she had a similar episode 3 years ago. She was receiving Ativan 1mg IV Q6H in ER which was a continued order for [facility]. Pt is currently on sodium chloride solution Q10H, 100/ML/HR. Pt has Right wrist IV, 20 G. Pt has Frank catheter 16 canadian, secured to left leg gravity draining clear, yellow. Per chart pt has been unable to urinate on her own and has hx of hesitancy. IV fluids necessary due to inability to open mouth. Medical Hx per chart: Bipolar, anxiety, hypothyroidism, TBI Assessment What has happened this shift: The patient was seen for 1:1 in the community room. She was going between watching TV and staring at the wall. She reports "feeling a little better" today. She continues to be hesitant when speaking as she searches for words. She speaks clearly, but at a low volume. The patient reports being hopeless and helpless due to believing she will never get better. She knows her medications, and is aware of changes. The patient is denying any s/s of UTI, but will continue the course S/I, H/I: Hopeless, helpless A/VH: Denies. Sleep: See sleep assessment. ADL's: Continues to require assist with toileting and ambulation.. Group attendance: No. Were meds taken: Yes. Any med S/E: None observed or reported. Mental Status Exam Appearance: Disheveled, elderly small framed woman. Wearing personal attire. Eye contact: Good Behavior: Reluctance to do anything, perseverative thought, hopeless, anxious. Speech: Soft, impoverished, slow. Mood: Hopeless Affect: Flat Thought process: Linear Thought Content: Perseverative thoughts about not being able to do things and feeling weak. Cognition: Good Insight: Poor Judgment: Poor Interventions PRN's used: None Therapeutic interventions: Physical assessment and 1:1 bedside assessment. Therapeutic listening and reassurance. Medication administration and education. Restraints/seclusion/emergency medication: N/A Justification of Continued Inpatient Treatment: Patient needs crisis intervention and medication stabilization.
[2020-09-24] MEDS: LORazepam 0.5 MG tablet PO SCH ×4 (08:00→21:31)
[2020-09-24] MEDS: K and/or MAG REPLACEMENT MC SCH ×2 (08:00→20:00)
[2020-09-24] MEDS: docusate sod 100mg capsule PO SCH ×2 (08:18→21:32)
[2020-09-24] MEDS: fluvoxamine 25 MG tablet PO SCH ×2 (08:18→21:32)
[2020-09-24] MEDS: levoTHYROXINE 25mcg tablet PO SCH (08:18)
[2020-09-24 08:25] VITALS: BP 134/89
[2020-09-24 09:10] LABS: MAGNESIUM 2.1 MG/DL (1.5-2.4); POTASSIUM 3.8 MMOL/L (3.5-5.1)
[2020-09-24 09:45] VITALS: BP 139/83
--- NOTE | 2020-09-24 10:00 | NUR ---
Group Therapy: Process Group This Clinicians goal for this process group were as follows: (1) Ask scaling questions about patients current anxiety, depression, and irritability symptoms as a check-in (2) Introduce and provide psychoeducation on distress tolerance skills. (2) Introduce the concept of radical acceptance and using our senses to self-soothe. (3) Share the acronym, A.C.C.E.P.T.S. Activities; Contributing; Comparisons; Emotions; Pushing Away; Thoughts; and Sensations (4) Process patients thoughts and reflections on this topic within the group milieu. Patient presented as properly oriented to person, place, and situation during the process group. Patient was dressed in nondescript, personal clothing that were appropriate within the milieu. Per this Clinician's impression, Patient did not move at all, where she was seated in the wheelchair in which she sat in the process group. Patient was unresponsive on two separate occasions. First, when he attempted to check-in initially with Client to gather scaling answers about the acuity of her anxiety, depression, anger/irritability symptoms, and, again, at a later time during the group when this Clinician was discussing the A.C.C.E.P.T.S. acronym. For this reason this Clinician was unable to assess Patient's thought content, process, or speech patterns. This Clinician did not observe Patient responding to any internal stimuli during session. Patient did not make eye contact with this Clinician. Patient presented in calm mood, with flat restricted affect during the process group. Frantz Mahoney MA, [employer] Addendum: 09/24/20 at 1142 by Frantz Mahoney Amended: Links added.
[2020-09-24] MEDS ORDERED: LORazepam 0.5 MG tablet PO ONE ×2 (11:35→13:15)
[2020-09-24] MEDS ORDERED: benztropine 1mg tablet PO ONE (14:05)
--- NOTE | 2020-09-24 17:56 | NUR ---
Nursing Progress Note: Nano: Legal hold: Voluntary Report received from Zoie Nieves RN with use of SBAR Why are they here: Patient was brought into ED on 09/11/20, reportedly catatonic by . She was unable to speak or move. reports she was taken off lithium 41 days ago and since then has been going in and out of catatonia. She received her 2nd ECT on 09/10 and was reportedly doing okay after, but on 09/11 after a nap she was unable to speak or move, and was brought into [facility]. Per record reported that she had a similar episode 3 years ago. She was receiving Ativan 1mg IV Q6H in ER which was a continued order for [facility]. Pt is currently on sodium chloride solution Q10H, 100/ML/HR. Pt has Right wrist IV, 20 G. Pt has Frank catheter 16 georgian, secured to left leg gravity draining clear, yellow. Per chart pt has been unable to urinate on her own and has hx of hesitancy. IV fluids necessary due to inability to open mouth. Medical Hx per chart: Bipolar, anxiety, hypothyroidism, TBI Assessment What has happened this shift: Pt. awake at start of shift and toileted. Pt. reports feeling too weak to walk to the dining room. Pt. brought in wheel chair for breakfast. Pt. took medication with assistance from this RN. Pt. barely open her mouth to take medications and drink water. Pt. not eating on her own initiative, pt. given a few bites of eggs but barely chews her food. Pt. given water but starts coughing because she holds the water in her mouth. RN received 1 time order for Ativan 0.5mg which had minimal effect. At lunch time pt. received another 1 time dose for Ativan 0.5mg and pt. showed increased improvement, slowly eating her lunch and verbalizing her needs more. RN received one time order for Cogentin 0.5mg. Pt. participated in art therapy group. RN received order for Tele-neuro consult to R/O Parkinsons disease. Pt. layed down in the afternoon to rest. Pt. c/o of constipation, pt. offered milk of magnesia but refused. S/I, H/I: Denies A/VH: Denies. Sleep: See sleep assessment. ADL's: Continues to require assist with toileting and ambulation. Group attendance: Yes Were meds taken: Yes. Any med S/E: None observed or reported. Mental Status Exam Appearance: Disheveled, elderly small framed woman. Wearing green unit scrubs. Eye contact: Good Behavior: In the AM pt. showed reluctance to do anything, unable to express needs, anxious. In the afternoon pt. showed much improvement, communicating needs and participating in groups. Speech: Soft, minimal, slow. Mood: Depressed Affect: Blunted Thought process: Thought blocking Thought Content: Situational Cognition: Good Insight: Poor Judgment: Poor Interventions PRN's used: Ativan 0.5 mg x2. Cogentin 1mg x1 Therapeutic interventions: Physical assessment and 1:1 bedside assessment. Therapeutic listening and reassurance. Medication administration and education. Restraints/seclusion/emergency medication: N/A Justification of Continued Inpatient Treatment: Patient needs crisis intervention and medication stabilization.
[2020-09-24 20:00] VITALS: BP 118/75
[2020-09-24] MEDS: mirtazapine 15mg tablet PO SCH (21:32)
--- NOTE | 2020-09-25 01:21 | NUR ---
Nursing Progress Note: Nano: Legal hold: Voluntary Report received from JOCELYNN Montano with use of SBAR Why are they here: Patient was brought into ED on 09/11/20, reportedly catatonic by . She was unable to speak or move. reports she was taken off lithium 41 days ago and since then has been going in and out of catatonia. She received her 2nd ECT on 09/10 and was reportedly doing okay after, but on 09/11 after a nap she was unable to speak or move, and was brought into [facility]. Per record reported that she had a similar episode 3 years ago. She was receiving Ativan 1mg IV Q6H in ER which was a continued order for [facility]. Pt is currently on sodium chloride solution Q10H, 100/ML/HR. Pt has Right wrist IV, 20 G. Pt has Frank catheter 16 yoruba, secured to left leg gravity draining clear, yellow. Per chart pt has been unable to urinate on her own and has hx of hesitancy. IV fluids necessary due to inability to open mouth. Medical Hx per chart: Bipolar, anxiety, hypothyroidism, TBI Assessment What has happened this shift: Patient is in the recreation room following shift change. 1:1 in the community room. Patient is socializing with another patient. Patient speaks very softly. Patient denies S/I, H/I, or any hallucinations. Patient does complain of anxiety and depression. Patient has a disheveled look, she is wearing green scrubs. Patient is up with assist to and from recreation room, during toileting, and moving to and from bed. S/I, H/I: Denies. A/VH: Denies. Sleep: Will tally sleep times at 0500 hours. ADL's: Continues to require assist with toileting and ambulation. Group attendance: No group on store sales consultant. Were meds taken: Yes, patient is medication compliant. Any med S/E: None observed or reported. Mental Status Exam: Appearance: Small disheveled woman wearing green scrubs. Eye contact: Good. Behavior: Quietly socializing with one other patient. Speech: Soft speech, slow rhythm.. Mood: Depressed. Affect: Flat. Thought process: Thought blocking Thought Content: Situational. Cognition: Good. Insight: Poor. Judgment: Poor Interventions: PRN's used: None. Therapeutic interventions: Physical assessment and 1:1 bedside assessment. Therapeutic listening and reassurance. Medication administration and education. Restraints/seclusion/emergency medication: N/A Justification of Continued Inpatient Treatment: Patient needs crisis intervention and medication stabilization. Addendum: 09/25/20 at 0139 by Winston Clarke RN Late entry: Patients called to inquire about his . With the patients permission this writer technical publications advised patients that she was doing well tonight. Somewhat tired and quiet, medication compliant, some quiet socialization. Somewhat sleepy at times. Patients exhibited understanding. He will call back on the day shift for another update.
[2020-09-25 08:00] VITALS: BP 114/75
[2020-09-25] MEDS: K and/or MAG REPLACEMENT MC SCH (08:00)
[2020-09-25] MEDS: fluvoxamine 25 MG tablet PO SCH ×2 (08:15→20:53)
[2020-09-25] MEDS: LORazepam 0.5 MG tablet PO SCH ×3 (08:16→20:53)
[2020-09-25] MEDS: levoTHYROXINE 25mcg tablet PO SCH (08:16)
[2020-09-25] MEDS: docusate sod 100mg capsule PO SCH ×2 (08:16→20:54)
[2020-09-25 08:57] LABS: BASOPHILS # (AUTO) 0.1 X10'3 (0-0.2); BASOPHILS % (AUTO) 0.9 % (0-1); EOSINOPHILS # (AUTO) 0.2 X10'3 (0-0.9); EOSINOPHILS % (AUTO) 2.2 % (0-6); HEMATOCRIT 41.2 % (35.0-45.0); HEMOGLOBIN 14.1 g/dl (12.0-16.0); LYMPHOCYTES # (AUTO) 1.5 X10'3 (1.1-4.8); LYMPHOCYTES % (AUTO) 21.6 % (21-51); MEAN CORPUSCULAR HEMOGLOBIN 33.5 PG (27.0-31.0); MEAN CORPUSCULAR HGB CONC 34.4 g/dL (33.0-36.5); MEAN CORPUSCULAR VOLUME 97.4 FL (78-98); MEAN PLATELET VOLUME 9.5 FL (7.4-10.4); MONOCYTES # (AUTO) 0.8 X10'3 (0-0.9); MONOCYTES % (AUTO) 11.3 % (2-12); NEUTROPHILS # (AUTO) 4.4 X10'3 (1.8-7.7); PLATELET COUNT 286 X10'3 (140-440); RED BLOOD COUNT 4.23 X10'6 (4.20-5.60)
[2020-09-25 09:10] LABS: ALANINE AMINOTRANSFERASE 22 U/L (12-78); ALBUMIN 3.6 G/DL (3.4-5.0); ALKALINE PHOSPHATASE 81 IU/L (46-116); ANION GAP 7 (8-16); ASPARTATE AMINO TRANSFERASE 16 U/L (10-37); BILIRUBIN,TOTAL 0.4 MG/DL (0.1-1.0); BLOOD UREA NITROGEN 18 MG/DL (7-18); BUN/CREATININE RATIO 17.5 (6.6-38.0); CALCIUM 10.2 MG/DL (8.5-10.1); CHLORIDE 109 MMOL/L (99-107); CREATININE 1.03 MG/DL (0.40-0.90); GLUCOSE 101 MG/DL (70-104); POTASSIUM 3.8 MMOL/L (3.5-5.1); SODIUM 144 MMOL/L (135-145); TOTAL CARBON DIOXIDE 27.8 MMOL/L (24-32); TOTAL PROTEIN 7.2 G/DL (6.4-8.2); eGFR 53 ML/MIN
[2020-09-25 09:12] LABS: CREATINE KINASE 26 U/L (26-192); MAGNESIUM 2.2 MG/DL (1.5-2.4)
--- NOTE | 2020-09-25 11:01 | NUR ---
Reassessment: Pt has improved PO intake from admission, past three days eating average of 75% and offered snacks. Patient back on MM5 diet with moderate/honey thick liquids, per nursing note pt had coughed with water d/t holding in her mouth. Documented with both normal bowel pattern and constipation. Will continue to follow. Rec: 1. continue vegetarian, MM5 texture, moderate/honey thick liquids 2. MVI supplementation on vegetarian diet 3. weekly wts Addendum: 09/25/20 at [address] Amended: Links added.
--- NOTE | 2020-09-25 14:29 | NUR ---
NURSING PROGRESS NOTE Legal hold: Voluntary Report received from JOCELYNN Bettencourt with use of SBAR Why are they here: Patient was brought into ED on 09/11/20, reportedly catatonic by . She was unable to speak or move. reports she was taken off lithium 41 days ago and since then has been going in and out of catatonia. She received her 2nd ECT on 09/10 and was reportedly doing okay after, but on 09/11 after a nap she was unable to speak or move, and was brought into [facility]. Per record reported that she had a similar episode 3 years ago. She was receiving Ativan 1mg IV Q6H in ER which was a continued order for [facility]. Pt is currently on sodium chloride solution Q10H, 100/ML/HR. Pt has Right wrist IV, 20 G. Pt has Frank catheter 16 sao tomean, secured to left leg gravity draining clear, yellow. Per chart pt has been unable to urinate on her own and has hx of hesitancy. IV fluids necessary due to inability to open mouth. Medical Hx per chart: Bipolar, anxiety, hypothyroidism, TBI Assessment What has happened this shift: Depressed mood flat affect. Speaks in a barely audible volume. Reports mood as "neutral." States, I'm more tired today because I walked a lot yesterday." States she will "think" about going to group. Timid and fearful at times when being assisted to bedside commode or ambulation. Up to all meals in dining room. Did not attend any groups today. S/I, H/I: Denies A/VH: Denies. Sleep: Napped ADL's: Continues to require assist with toileting and ambulation. Group attendance: No Were meds taken: Yes. Any med S/E: None observed or reported. Mental Status Exam Appearance: Disheveled, elderly small framed woman. Wearing green unit scrubs. Eye contact: Fair Behavior: fearful and helpless Speech: Soft, minimal, slow. Mood: Depressed Affect: flat Thought process: Thought blocking Thought Content: Situational Cognition: [place] Insight: Poor Judgment: Poor Interventions PRN's used: None Therapeutic interventions: Physical assessment and 1:1 bedside assessment. Therapeutic listening and reassurance. Medication administration and education. Safety checks q15m. ADL assistance Restraints/seclusion/emergency medication: N/A Justification of Continued Inpatient Treatment: Patient needs crisis intervention and medication stabilization.
[2020-09-25 19:00] VITALS: BP 132/80
[2020-09-25] MEDS: mirtazapine 15mg tablet PO SCH (20:54)
--- NOTE | 2020-09-26 01:45 | NUR ---
Nursing Progress Note: Nano: Legal hold: Voluntary Report received from JOCELYNN Hankins with use of SBAR Why are they here: Patient was brought into ED on 09/11/20, reportedly catatonic by . She was unable to speak or move. reports she was taken off lithium 41 days ago and since then has been going in and out of catatonia. She received her 2nd ECT on 09/10 and was reportedly doing okay after, but on 09/11 after a nap she was unable to speak or move, and was brought into [facility]. Per record reported that she had a similar episode 3 years ago. She was receiving Ativan 1mg IV Q6H in ER which was a continued order for [facility]. Pt is currently on sodium chloride solution Q10H, 100/ML/HR. Pt has Right wrist IV, 20 G. Pt has Frank catheter 16 sinhala, secured to left leg gravity draining clear, yellow. Per chart pt has been unable to urinate on her own and has hx of hesitancy. IV fluids necessary due to inability to open mouth. Medical Hx per chart: Bipolar, anxiety, hypothyroidism, TBI Assessment What has happened this shift: Patient sits in the recreation room following shift change. She quietly socializes with others at her table. 1:1 Interview at table side. Patient is well oriented. She selectively answers questions in a very quiet voice. Another patient asks, "can she (the patient) understand what you are asking? The patient suddenly answered rapidly in a loud voice, "I understand him just fine." The patient then starts responding slowly again in a barely audible voice. Patient tells this quality analyst/technical writer "I'm just not feeling right," she will not elaborate. The patient tells this quality analyst/technical writer that she wants to have a big strong tech, "like that nice good Cheek, to help her to the bathroom and back to bed when ready. Patient was reassured we have big strong tech's tonight. The patient smiles. Patient will not elaborate on her thoughts or her feelings. She does deny S/I, H/I, she denies any hallucinations. Patient is slowly consuming her medications, she is medication compliant. S/I, H/I: Denies. A/VH: Denies. Sleep: Will tally sleep times at 0500 hours. ADL's: Continues to require assist with toileting and ambulation. Group attendance: No group on shift engineer. Were meds taken: Yes, patient is medication compliant. Any med S/E: None observed or reported. Mental Status Exam: Appearance: Small disheveled woman wearing green scrubs. Eye contact: Good. Behavior: Quietly socializing with one other patient. Speech: Soft speech, slow rhythm.. Mood: Depressed. Affect: Flat. Thought process: Thought blocking Thought Content: Situational. Cognition: Good. Insight: Poor. Judgment: Poor Interventions: PRN's used: None. Therapeutic interventions: Physical assessment and 1:1 bedside assessment. Therapeutic listening and reassurance. Medication administration and education. Restraints/seclusion/emergency medication: N/A Justification of Continued Inpatient Treatment: Patient needs crisis intervention and medication stabilization.
--- NOTE | 2020-09-26 04:05 | NUR ---
Patient is up to the bathroom to void, assisted by Tech. Per Tech, the patient offers little effort to assist with ambulating to bathroom. Per Tech, "kind of rigid."
[2020-09-26 07:32] VITALS: BP 132/79
[2020-09-26] MEDS: LORazepam 0.5 MG tablet PO SCH ×3 (07:54→21:28)
[2020-09-26] MEDS: levoTHYROXINE 25mcg tablet PO SCH (07:54)
[2020-09-26] MEDS: fluvoxamine 25 MG tablet PO SCH ×2 (07:54→21:28)
[2020-09-26] MEDS: docusate sod 100mg capsule PO SCH ×2 (07:54→21:28)
[2020-09-26] MEDS: K and/or MAG REPLACEMENT MC SCH ×2 (08:00→20:00)
--- NOTE | 2020-09-26 17:29 | NUR ---
Nursing Progress Note: Legal hold: vol Report received from Ricarda CABEZAS with use of SBAR Why are they here: Pt was brought into ED on 09/11/20, reportedly catatonic by . She was unable to speak or move. reports she was taken off lithium 41 days ago and since then has been going in and out of catatonia. She received her 2nd ECT on 09/10 and was reportedly doing okay after, but on 09/11 after a nap she was unable to speak or move, and was brought into [facility]. Per record reported that she had a similar episode 3 years ago. She was receiving ativan 1mg IV Q6H in ER which was a continued order for [facility]. Pt is currently on sodium chloride solution Q10H, 100/ML/HR. Pt has Right wrist IV, 20 G. Pt has gomes catheter 16 vatican citizen, secured to left leg gravity draining clear, yellow. Per chart pt has been unable to urinate on her own and has a hx of hesitancy. IV fluids necessary due to inability to open mouth. Medical Hx per chart: Bipolar, anxiety, hypothyroidism, TBI Assessment What has happened this shift: Received pt up at lunch. Pt eating 75-90% of her meals and drinking liquids. Pt has flat affect and continues to endorse depression and anxiety with vague suicidal thoughts. Pt denies hallucinations and does not demonstrate delusional thoughts. Pt ambulated 3x throughout the day about 120 feet each time - to and from the dining room for meals. This is a 2 person process with one staff following behind with a wheelchair and the other helping move the walker along which she has difficulty doing on her own. S/I, H/I: vague s.i. A/VH: denies Sleep: napped on and off during dayshift. ADL's: 2 person to ambulate to bedside commode. Can feed self. Total assist Group attendance:NA Were meds taken: yes Any med S/E: None noted or reported. Mental Status Exam Appearance: Elderly small framed woman lying in bed dressed in a green dress. Eye contact: good Behavior: cooperative Speech: Soft. Mood: Depressed Affect: flat Thought process: linear Thought Content: Wanting to go home. Cognition: good Insight: good Judgment: good Interventions PRN's used: NA Therapeutic interventions: Physical assessment and 1:1 bedside assessment. Therapeutic listening and reassurance. Medication administration and education. Ambulating pt with walker and wt. belt and following with a wheelchair Restraints/seclusion/emergency medication: NA Justification of Continued Inpatient Treatment: Pt needs crisis intervention and medication stabilization.
[2020-09-26 19:00] VITALS: BP 131/86
[2020-09-26] MEDS: mirtazapine 15mg tablet PO SCH (21:28)
--- NOTE | 2020-09-27 05:30 | NUR ---
RN PROGRESS NOTE: LEGAL HOLD: Voluntary REPORT RECEIVED: Nhi Martinez RN with use of SBAR. REASON FOR ADMISSION: Patient was brought into ED on 09/11/20, unable to speak or move. reports she was taken off lithium 41 days ago and since then has been going in and out of catatonia. She received her 2nd ECT on 09/10 and was reportedly doing okay after, but on 09/11 after a nap she was unable to speak or move, and was brought into [facility]. Client had a similar episode 3 years ago. Medical Hx per chart: Bipolar, anxiety, hypothyroidism, TBI ASSESSMENT: THIS SHIFT: Client was sitting in a wheelchair, in the group room at [facility]. Client speaks at a whisper. She appears anxious about being transferred to her bed later in the shift. Client remained in group room until after snack and was then taken to her room. Client was assisted to bed by two staff members. Client took meds without difficulty. Client was repositioned every two hours. Slept with HOB elevated. Client is able to use the call light. Client does not discuss mood or thoughts. She appears depressed. Assisted to commode at 05:00. Client is cooperative. S/I, H/I: Denies A/VH: Denies Sleep: Slept well. ADL's: Needs assistance with transfers. Group attendance: N/A. Were meds taken: Yes Any med S/E: None noted or reported. Appearance: Appropriately dressed. Eye contact: Fair. Behavior: Cooperative, reluctant to assist in ADLs. Able to make needs known. Speech: Low volume, slow. Poverty of speech. Mood: Depression Affect: Congruent with mood. Thought process: Linear Insight: Fair Judgment: Fair INTERVENTIONS: PRN's used: None Therapeutic intervention: Physical assessment and 1:1 bedside assessment. Medication administration. Q15 min checks for safety. Restraints/seclusion/emergency medication: N/A Justification of Continued Inpatient Treatment: Continued crisis intervention and medication stabilization.
[2020-09-27] MEDS: fluvoxamine 25 MG tablet PO SCH ×2 (07:55→20:34)
[2020-09-27] MEDS: docusate sod 100mg capsule PO SCH ×2 (07:55→20:35)
[2020-09-27] MEDS: LORazepam 0.5 MG tablet PO SCH ×3 (07:55→20:35)
[2020-09-27] MEDS: levoTHYROXINE 25mcg tablet PO SCH (07:55)
[2020-09-27 08:00] VITALS: BP 141/85
[2020-09-27] MEDS: K and/or MAG REPLACEMENT MC SCH ×2 (08:00→20:00)
[2020-09-27] MEDS: methylphenidate 5mg tablet PO SCH ×3 (09:46→17:18)
--- NOTE | 2020-09-27 17:05 | NUR ---
Nursing Progress Note: Legal hold: vol Report received from Ricarda CABEZAS with use of SBAR Why are they here: Pt was brought into ED on 09/11/20, reportedly catatonic by . She was unable to speak or move. reports she was taken off lithium 41 days ago and since then has been going in and out of catatonia. She received her 2nd ECT on 09/10 and was reportedly doing okay after, but on 09/11 after a nap she was unable to speak or move, and was brought into [facility]. Per record reported that she had a similar episode 3 years ago. She was receiving ativan 1mg IV Q6H in ER which was a continued order for [facility]. Pt is currently on sodium chloride solution Q10H, 100/ML/HR. Pt has Right wrist IV, 20 G. Pt has gomes catheter 16 moroccan, secured to left leg gravity draining clear, yellow. Per chart pt has been unable to urinate on her own and has a hx of hesitancy. IV fluids necessary due to inability to open mouth. Medical Hx per chart: Bipolar, anxiety, hypothyroidism, TBI Assessment What has happened this shift: Patient was asleep at change of shift and up for breakfast. Patient was more alert today and asked for a shower and assisted in washing herself. Patient has no skin breakdown and is being turned Q 2 hours while in bed. Patient spent a lot of time in the Community Room today. Patient is happy with her progress though her affect is flat. S/I, H/I: denies A/VH: denies Sleep: napped on and off during dayshift. ADL's: 2 person to assist to bedside commode. Can feed herself, washed herself in the shower Group attendance:NA Were meds taken: yes Any med S/E: None noted or reported. Mental Status Exam Appearance: Elderly small framed woman lying in bed dressed in a green dress. Eye contact: good Behavior: cooperative Speech: Soft. Mood: Depressed Affect: flat Thought process: linear Thought Content: Wanting to go home. Cognition: good Insight: good Judgment: good Interventions PRN's used: NA Therapeutic interventions: Physical assessment and 1:1 bedside assessment. Therapeutic listening and reassurance. Medication administration and education. Ambulating pt with walker and wt. belt and following with a wheelchair Restraints/seclusion/emergency medication: NA Justification of Continued Inpatient Treatment: Pt needs crisis intervention and medication stabilization.
[2020-09-27 20:00] VITALS: BP 126/82
[2020-09-27] MEDS: mirtazapine 15mg tablet PO SCH (20:35)
--- NOTE | 2020-09-28 00:05 | NUR ---
Nursing Progress Note: Legal hold: vol Report received from Nhi CABEZAS with use of SBAR Why are they here: Pt was brought into ED on 09/11/20, reportedly catatonic by . She was unable to speak or move. reports she was taken off lithium 41 days ago and since then has been going in and out of catatonia. She received her 2nd ECT on 09/10 and was reportedly doing okay after, but on 09/11 after a nap she was unable to speak or move, and was brought into [facility]. Per record reported that she had a similar episode 3 years ago. She was receiving ativan 1mg IV Q6H in ER which was a continued order for [facility]. Pt is currently on sodium chloride solution Q10H, 100/ML/HR. Pt has Right wrist IV, 20 G. Pt has gomes catheter 16 syriac, secured to left leg gravity draining clear, yellow. Per chart pt has been unable to urinate on her own and has a hx of hesitancy. IV fluids necessary due to inability to open mouth. Medical Hx per chart: Bipolar, anxiety, hypothyroidism, TBI Assessment What has happened this shift: Patient was up and in the group room watching tv. Patient was more alert today and talking. Patient has no skin breakdown and is being turned Q 2 hours while in bed. S/I, H/I: denies A/VH: denies Sleep: napped on and off during dayshift. ADL's: 2 person to assist to bedside commode. Can feed herself, washed herself in the shower Group attendance:NA Were meds taken: yes Any med S/E: None noted or reported. Mental Status Exam Appearance: Elderly small framed woman lying in bed dressed in a green dress. Eye contact: good Behavior: cooperative Speech: Soft. Mood: Depressed Affect: flat Thought process: linear Thought Content: Wanting to go home. Cognition: good Insight: good Judgment: good Interventions PRN's used: NA Therapeutic interventions: Physical assessment and 1:1 bedside assessment. Therapeutic listening and reassurance. Medication administration and education. Ambulating pt with walker and wt. belt and following with a wheelchair Restraints/seclusion/emergency medication: NA Justification of Continued Inpatient Treatment: Pt needs crisis intervention and medication stabilization.
[2020-09-28] MEDS: levoTHYROXINE 25mcg tablet PO SCH (07:00)
[2020-09-28 07:31] VITALS: BP 123/71
[2020-09-28] MEDS: LORazepam 0.5 MG tablet PO SCH ×3 (08:00→21:00)
[2020-09-28] MEDS: fluvoxamine 25 MG tablet PO SCH ×2 (08:00→19:52)
[2020-09-28] MEDS: docusate sod 100mg capsule PO SCH ×2 (08:00→20:00)
[2020-09-28] MEDS: K and/or MAG REPLACEMENT MC SCH ×2 (08:00→20:00)
[2020-09-28] MEDS: methylphenidate 5mg tablet PO SCH ×2 (08:30→12:30)
--- NOTE | 2020-09-28 10:08 | NUR ---
Reassessment: Pt PO fluctuates ~65-75% avg w/ 75-100% most recent meals likely meeting needs. Placed on EC7/honey thick diet; per nursing note pt had coughed with water d/t holding in her mouth. LBM 09/25. No nutrition concerns at this time. Will continue to monitor. Rec: 1. continue vegetarian, EC7 texture, moderate/honey thick liquids 2. MVI supplementation on vegetarian diet 3. bowel care per rx 4. weekly wts Addendum: 09/28/20 at [address] Amended: Links added.
--- NOTE | 2020-09-28 12:32 | NUR ---
F/u: Pt not taking any fluids in and fear of aspiration at this time per RN w/ current honey thick liquids. Pt pending barium swallow study tomorrow for dysphagia and placed on pureed/pudding thick liquids in mean time since best option until CHEMICAL LABORATORY ASSISTANT recs received. Dietary notified. Will monitor for CHEMICAL LABORATORY ASSISTANT recs. Rec: 1. continue pureed/vegetarian, extreme/pudding thick liquids pending barium swallow tomorrow and CHEMICAL LABORATORY ASSISTANT recs 2. MVI supplementation on vegetarian diet 3. bowel care per rx 4. weekly wts Addendum: 09/28/20 at [address] Amended: Links added.
[2020-09-28] MEDS ORDERED: benztropine 1 mg/ml 2ml ampule IV ONE (13:35)
[2020-09-28] MEDS ORDERED: normal saline 1000ml 1,000 ML IV ONE (13:35)
[2020-09-28] MEDS ORDERED: fluvoxamine 25 MG tablet PO ONE (14:25)
[2020-09-28] MEDS: LORazepam 2 mg/ml vial IV SCH ×4 (15:27→23:47)
[2020-09-28 15:31] LABS: BASOPHILS % (AUTO) 0.5 % (0-1); EOSINOPHILS % (AUTO) 0.2 % (0-6); HEMOGLOBIN 13.2 g/dl (12.0-16.0); LYMPHOCYTES % (AUTO) 10.6 % (21-51); MEAN CORPUSCULAR HEMOGLOBIN 32.7 PG (27.0-31.0); MEAN CORPUSCULAR HGB CONC 33.9 g/dL (33.0-36.5); MEAN CORPUSCULAR VOLUME 96.5 FL (78-98); MEAN PLATELET VOLUME 9.7 FL (7.4-10.4); MONOCYTES # (AUTO) 0.7 X10'3 (0-0.9); MONOCYTES % (AUTO) 7.6 % (2-12); NEUTROPHILS # (AUTO) 7.6 X10'3 (1.8-7.7); NEUTROPHILS % (AUTO) 81.1 % (42-75); PLATELET COUNT 256 X10'3 (140-440); RED BLOOD COUNT 4.04 X10'6 (4.20-5.60); RED CELL DISTRIBUTION WIDTH 13.3 % (11.5-14.5); WHITE BLOOD COUNT 9.4 X10'3 (4.5-11.0)
[2020-09-28 15:42] LABS: ALANINE AMINOTRANSFERASE 19 U/L (12-78); ALBUMIN 3.4 G/DL (3.4-5.0); ALKALINE PHOSPHATASE 82 IU/L (46-116); ANION GAP 8 (8-16); ASPARTATE AMINO TRANSFERASE 16 U/L (10-37); BILIRUBIN,TOTAL 0.4 MG/DL (0.1-1.0); BLOOD UREA NITROGEN 19 MG/DL (7-18); BUN/CREATININE RATIO 18.4 (6.6-38.0); CALCIUM 9.9 MG/DL (8.5-10.1); CHLORIDE 109 MMOL/L (99-107); CREATININE 1.03 MG/DL (0.40-0.90); GLUCOSE 97 MG/DL (70-104); POTASSIUM 3.9 MMOL/L (3.5-5.1); SODIUM 146 MMOL/L (135-145); TOTAL CARBON DIOXIDE 28.8 MMOL/L (24-32); TOTAL PROTEIN 6.7 G/DL (6.4-8.2); eGFR 53 ML/MIN
[2020-09-28] MEDS ORDERED: carbidopa/levodopa 10/100mg tab PO SCH (16:00)
[2020-09-28] MEDS ORDERED: LORazepam 2 mg/ml vial IV SCH (16:00)
[2020-09-28] MEDS: lithium carbonate 150mg capsule PO SCH ×3 (17:30→19:53)
--- NOTE | 2020-09-28 18:31 | NUR ---
Nursing Progress Note: Nano Legal hold: Voluntary Report received from RN with use of SBAR Why are they here: Pt was brought into ED on 09/11/20, reportedly catatonic by . She was unable to speak or move. reports she was taken off lithium 41 days ago and since then has been going in and out of catatonia. She received her 2nd ECT on 09/10 and was reportedly doing okay after, but on 09/11 after a nap she was unable to speak or move, and was brought into [facility]. Per record reported that she had a similar episode 3 years ago. She was receiving ativan 1mg IV Q6H in ER which was a continued order for [facility]. Pt is currently on sodium chloride solution Q10H, 100/ML/HR. Pt has Right wrist IV, 20 G. Pt has gomes catheter 16 english, secured to left leg gravity draining clear, yellow. Per chart pt has been unable to urinate on her own and has a hx of hesitancy. IV fluids necessary due to inability to open mouth. Medical Hx per chart: Bipolar, anxiety, hypothyroidism, TBI Assessment What has happened this shift: Received pt in bed awake at change of shift. This RN introduced himself and conversed with Pt who reported there was an incident last night in the [place] which disturbed her, and she spoke of her hands not working as well as they have been. She was assisted into a wheel chair and taken to the community room, where she then would not talk to this RN, take any meds or eat. Pt appeared to be willfully clenching her jaw and not making eye contact. Spoke with on phone who reported that she said to him Im tired, if I had a button to push, I would. He reported Methylphenidate was not helpful, and it was DCd by PA today. Pt spoke with SHELBY Holley and was cooperative and able to open mouth and swallow, but when approached with medications, she refused to open her mouth or communicate. Per PA, IV of NS started by Gaurang CABEZAS, and pt given cogentin and ativan. Pt slept and woke for dinner. She was assisted out of bed to wheel chair and into community room. S/I, H/I: Pt unresponsive A/VH: Pt unresponsive Sleep: Napped ADL's: Total assist Group attendance:NA Were meds taken: No. IV only Any med S/E: None noted or reported. Mental Status Exam Appearance: Frail looking older woman in bed Eye contact: Good during first conversation. Poor rest of day Behavior: Resistive to eating and meds. Speech: Soft in AM. Unresponsive rest of day Mood: Depressed Affect: Flat Thought process: Unable to assess Thought Content: NA Cognition: Good Insight: Good Judgment: Poor Interventions PRN's used: NA Therapeutic interventions: Physical assessment and 1:1 bedside assessment. Therapeutic listening and reassurance. Medication administration and education. Ambulating pt with walker and wt. belt and following with a wheelchair Restraints/seclusion/emergency medication: NA Justification of Continued Inpatient Treatment: Pt needs crisis intervention and medication stabilization.
[2020-09-28 20:37] VITALS: BP 121/69
[2020-09-28] MEDS: mirtazapine 15mg tablet PO SCH (21:00)
--- NOTE | 2020-09-29 00:06 | NUR ---
Nursing Progress Note: Nano Legal hold: Voluntary Report received from RN with use of SBAR Why are they here: Pt was brought into ED on 09/11/20, reportedly catatonic by . She was unable to speak or move. reports she was taken off lithium 41 days ago and since then has been going in and out of catatonia. She received her 2nd ECT on 09/10 and was reportedly doing okay after, but on 09/11 after a nap she was unable to speak or move, and was brought into [facility]. Per record reported that she had a similar episode 3 years ago. She was receiving ativan 1mg IV Q6H in ER which was a continued order for [facility]. Pt is currently on sodium chloride solution Q10H, 100/ML/HR. Pt has Right wrist IV, 20 G. Pt has gomes catheter 16 kinyarwanda, secured to left leg gravity draining clear, yellow. Per chart pt has been unable to urinate on her own and has a hx of hesitancy. IV fluids necessary due to inability to open mouth. Medical Hx per chart: Bipolar, anxiety, hypothyroidism, TBI Assessment What has happened this shift: Received pt in group room eating dinner. Pt ate about 25% and was compliant with her Fluvoxamine and [place]. Pt was able to answer questions and was more Flexible. Pt was helped back to her room toileted and put in bed. S/I, H/I: Pt unresponsive A/VH: Pt unresponsive Sleep: Napped ADL's: Total assist Group attendance:NA Were meds taken: No. IV only Any med S/E: None noted or reported. Mental Status Exam Appearance: Frail looking older woman in bed Eye contact: Good during first conversation. Poor rest of day Behavior: Resistive to eating and meds. Speech: Soft in AM. Unresponsive rest of day Mood: Depressed Affect: Flat Thought process: Unable to assess Thought Content: NA Cognition: Good Insight: Good Judgment: Poor Interventions PRN's used: NA Therapeutic interventions: Physical assessment and 1:1 bedside assessment. Therapeutic listening and reassurance. Medication administration and education. Ambulating pt with walker and wt. belt and following with a wheelchair Restraints/seclusion/emergency medication: NA Justification of Continued Inpatient Treatment: Pt needs crisis intervention and medication stabilization. Addendum: 09/29/20 at 0042 by Thompson Portillo RN Iv finished and was saline locked .
[2020-09-29] MEDS: benztropine 1 mg/ml 2ml ampule IV SCH ×3 (02:17→20:24)
[2020-09-29] MEDS: LORazepam 2 mg/ml vial IV SCH ×5 (03:39→20:23)
--- NOTE | 2020-09-29 03:40 | NUR ---
0400 Ativan held BP 95/54 HR 77 these values are low for pt. Resp 14 O2 sats 97%
[2020-09-29 07:46] VITALS: BP 103/68
[2020-09-29] MEDS: K and/or MAG REPLACEMENT MC SCH ×2 (08:00→20:00)
[2020-09-29] MEDS: fluvoxamine 25 MG tablet PO SCH ×2 (08:46→20:14)
[2020-09-29] MEDS: levoTHYROXINE 25mcg tablet PO SCH (08:46)
[2020-09-29] MEDS: docusate sod 100mg capsule PO SCH ×2 (08:46→20:14)
[2020-09-29] MEDS: LORazepam 0.5 MG tablet PO SCH (08:47)
[2020-09-29] MEDS: lithium carbonate 150mg capsule PO SCH ×3 (12:36→19:50)
--- NOTE | 2020-09-29 17:24 | NUR ---
Nursing Progress Note: Legal hold: Voluntary Report received from RN with use of SBAR Why are they here: Pt was brought into ED on 09/11/20, reportedly catatonic by . She was unable to speak or move. reports she was taken off lithium 41 days ago and since then has been going in and out of catatonia. She received her 2nd ECT on 09/10 and was reportedly doing okay after, but on 09/11 after a nap she was unable to speak or move, and was brought into [facility]. Per record reported that she had a similar episode 3 years ago. She was receiving ativan 1mg IV Q6H in ER which was a continued order for [facility]. Pt is currently on sodium chloride solution Q10H, 100/ML/HR. Pt has Right wrist IV, 20 G. Pt has gomes catheter 16 nicaraguan, secured to left leg gravity draining clear, yellow. Per chart pt has been unable to urinate on her own and has a hx of hesitancy. IV fluids necessary due to inability to open mouth. Medical Hx per chart: Bipolar, anxiety, hypothyroidism, TBI Assessment What has happened this shift: Patient was asleep at change of shift and up in wheelchair for breakfast. Patient is having "difficulty" walking or does not want to walk. Patient received her IV Ativan and took all her pills in one gulp. Patient's position was shifted Q 2 hours, though patient did not want to be shifted. At lunch patient was staring of to her right at the wall. RN gave patient her Ativan, I.V. and patient immediately appeared to awaken and took all her meds in one gulp. Patient is very quiet and wants to sleep. Patient denies suicidal ideaiton. Patient denies audio/visual hallucinations. S/I, H/I: Denies A/VH: Denies Sleep: Napped or reclined in bed most of the day. Up for meals. ADL's: Total assist Group attendance: No Were meds taken: Yes, PO and I.V. Any med S/E: None noted or reported. Mental Status Exam Appearance: Frail looking older woman in bed Eye contact: Good Behavior: Catatonic at times and Cooperative Speech: Soft spoken Mood: Depressed Affect: Flat Thought process: Unable to assess Thought Content: NA Cognition: Good Insight: Poor Judgment: Poor Interventions PRN's used: NA Therapeutic interventions: Physical assessment and 1:1 bedside assessment. Therapeutic listening and reassurance. Medication administration and education. Ambulating pt with walker and wt. belt and following with a wheelchair Restraints/seclusion/emergency medication: NA Justification of Continued Inpatient Treatment: Pt needs crisis intervention and medication stabilization.
[2020-09-29 20:00] VITALS: BP 115/68
[2020-09-29] MEDS: mirtazapine 15mg tablet PO SCH (20:17)
[2020-09-30] MEDS: LORazepam 2 mg/ml vial IV SCH ×6 (00:19→20:00)
--- NOTE | 2020-09-30 00:55 | NUR ---
Nursing Progress Note: Legal hold: Voluntary Report received from RN with use of SBAR Why are they here: Pt was brought into ED on 09/11/20, reportedly catatonic by . She was unable to speak or move. reports she was taken off lithium 41 days ago and since then has been going in and out of catatonia. She received her 2nd ECT on 09/10 and was reportedly doing okay after, but on 09/11 after a nap she was unable to speak or move, and was brought into [facility]. Per record reported that she had a similar episode 3 years ago. She was receiving ativan 1mg IV Q6H in ER which was a continued order for [facility]. Pt is currently on sodium chloride solution Q10H, 100/ML/HR. Pt has Right wrist IV, 20 G. Pt has gomes catheter 16 comoran, secured to left leg gravity draining clear, yellow. Per chart pt has been unable to urinate on her own and has a hx of hesitancy. IV fluids necessary due to inability to open mouth. Medical Hx per chart: Bipolar, anxiety, hypothyroidism, TBI Assessment What has happened this shift: Patient was in group room at change of shift. Patient received her IV Ativan, Cogentin and took all her pills . Patient is reposition Q 2 hours, though patient did not want to be shifted. Patient denies audio/visual hallucinations. S/I, H/I: Denies A/VH: Denies Sleep: Napped or reclined in bed most of the day. Up for meals. ADL's: Total assist Group attendance: No Were meds taken: Yes, PO and I.V. Any med S/E: None noted or reported. Mental Status Exam Appearance: Frail looking older woman in bed Eye contact: Good Behavior: Catatonic at times and Cooperative Speech: Soft spoken Mood: Depressed Affect: Flat Thought process: Unable to assess Thought Content: NA Cognition: Good Insight: Poor Judgment: Poor Interventions PRN's used: NA Therapeutic interventions: Physical assessment and 1:1 bedside assessment. Therapeutic listening and reassurance. Medication administration and education. Ambulating pt with walker and wt. belt and following with a wheelchair Restraints/seclusion/emergency medication: NA Justification of Continued Inpatient Treatment: Pt needs crisis intervention and medication stabilization.
[2020-09-30] MEDS: benztropine 1 mg/ml 2ml ampule IV SCH ×2 (07:51→20:23)
[2020-09-30 07:55] VITALS: BP 121/61
[2020-09-30] MEDS: K and/or MAG REPLACEMENT MC SCH (08:00)
[2020-09-30] MEDS: fluvoxamine 25 MG tablet PO SCH ×2 (08:35→20:25)
[2020-09-30] MEDS: levoTHYROXINE 25mcg tablet PO SCH (08:35)
[2020-09-30] MEDS: docusate sod 100mg capsule PO SCH ×2 (08:35→20:21)
[2020-09-30] MEDS: lithium carbonate 150mg capsule PO SCH ×4 (08:36→19:50)
--- NOTE | 2020-09-30 10:00 | NUR ---
Group Therapy: Process Group This Clinicians goal for this process group were as follows: (1) Ask scaling questions about patients current anxiety, depression, and irritability symptoms as a check-in. (2) Provide psychoeducation on emotional and situational stressors. (3) Discuss thoughts and feelings that patients experience when they have experienced an emotional and/or situational stressor. (4) Provide psychoeducation on interventions, as actions patients can take to reduce feelings of emotional escalation caused by situational and emotional stressors. (5) Process patients thoughts and reflections on this topic within the group milieu. Milieu staff was present during the process group to monitor patient behaviors. Patient presented as properly oriented to person, and place during the process group. Patient was dressed in nondescript, personal clothing that were appropriate within the milieu. Patient presented as very still during the process group. She did not respond to this Clinician's attempts to check-in with her initially regarding the acuity of her current, anxiety, depression, and anger/irritability symptoms. Patient ambulated with the assistance of a wheel chair. Patient presented as nonverbal; hence, this Clinician was unable to assess her thought content, process, or speech pattern. This Clinician did not observe Patient responding to any internal stimuli during session. Patient did not maintain eye contact with this Clinician. Patient presented in calm mood, with flat affect during the process group. Patient presented as nonobtrusive within the group milieu. Frantz Mahoney MA, MARCELLO Addendum: 10/02/20 at 0811 by Frantz Mahoney SS Amended: Links added.
--- NOTE | 2020-09-30 17:03 | NUR ---
Nursing Progress Note: Legal hold: Voluntary Report received from Rut CABEZAS with use of SBAR Why are they here: Pt was brought into ED on 09/11/20, reportedly catatonic by . She was unable to speak or move. reports she was taken off lithium 41 days ago and since then has been going in and out of catatonia. She received her 2nd ECT on 09/10 and was reportedly doing okay after, but on 09/11 after a nap she was unable to speak or move, and was brought into [facility]. Per record reported that she had a similar episode 3 years ago. She was receiving ativan 1mg IV Q6H in ER which was a continued order for [facility]. Pt is currently on sodium chloride solution Q10H, 100/ML/HR. Pt has Right wrist IV, 20 G. Pt has gomes catheter 16 [place] guinean, secured to left leg gravity draining clear, yellow. Per chart pt has been unable to urinate on her own and has a hx of hesitancy. IV fluids necessary due to inability to open mouth. Medical Hx per chart: Bipolar, anxiety, hypothyroidism, TBI Assessment What has happened this shift: Pt opens eyes to voice, she is able to communicate needs though verbalizations remain minimal and her voice is so soft it is difficult to understand. Pt is able to communicate when she has to use the bedside commode. She also stated that she would like the IV removed. Pt know that she is in [place], unable to state the date, is confused about why she is here. Pt is a 2 person assist with transfers and toileting. She was unable to ambulate today. Pt was turned Q 2H while in bed, heels were floated. Pt needs encouragement to get up out of bed and into w/c for meals. She did so for both breakfast and lunch though was reluctant to do so for dinner. Pt needs assistance at meals, she can hold a spoon but falls asleep or stops eating and sits there holding the spoon up in the air without prompts or assistance. Pt took her meds crushed in applesauce. She was able to swallow her Colace whole in applesauce though it took awhile and swallowing is delayed. Fluids were encouraged, pt continues on thin liquids though only takes small sips. Potassium and mag protocols were D/c'd. Pt has a SL right AC and continues on routine IV Ativan and Cogentin. Dr Potts states he will probably order PO Ativan and Cogentin tomorrow and D/c the IV. Pt is on LOS and has a sitter. S/I, H/I: Pt does not answer the questions. A/VH: Pt does not answer the questions. Sleep: Pt slept 7.5 hours last night per noc shift report, she napped frequently during the day, up out of bed for toileting and meals. ADL's: Extensive assist of 2 for transfers and toileting, 1-2 person assist with repositioning/bed mobility and hygiene, 1 person assist with meals, pt unable to ambulate today and used w/c which she is unable to self-propel. Group attendance: No Were meds taken: Yes Any med S/E: Pt reports that the Ativan makes her feel sleepy though acknowledges that she also felt sleepy before she was started on Ativan. Mental Status Exam Appearance: Frail, fatigued looking white haired woman dressed in hospital scrubs. Eye contact: Good Behavior: Slow moving and speaking, needs much encouragement to get up in w/c for meals. Speech: Very soft, minimal, mumbled at times, difficult to understand. Mood: Appears depressed Affect: Flat Thought process: Confused, unsure why she is here or what the plan is. Thought Content: Wants to know what the plan is, does not like the IV; wants it removed. Cognition: A/O X 2 Insight: Poor Judgment: Poor Interventions PRN's used: None Therapeutic interventions: 1:1 assessment, establishment of rapport, encouraged pt to express her thoughts and feelings, active listening, medication administration/education/monitoring, IV push medications, fall prevention, skin breakdown prevention, repositioning Q 2H in while in bed, encouragement to get up in w/c for meals, encouragement of food and fluids, LOS level of observation. Restraints/seclusion/emergency medication: NA Justification of Continued Inpatient Treatment: Pt goes in and out of catatonia and needs medication adjustment and monitoring in a safe and therapeutic environment. Pt is gravely disabled.
[2020-09-30 20:00] VITALS: BP 110/65
[2020-09-30] MEDS: mirtazapine 15mg tablet PO SCH (20:23)
--- NOTE | 2020-10-01 00:49 | NUR ---
Nursing Progress Note: Legal hold: Voluntary Report received from Nhi CABEZAS with use of SBAR Why are they here: Pt was brought into ED on 09/11/20, reportedly catatonic by . She was unable to speak or move. reports she was taken off lithium 41 days ago and since then has been going in and out of catatonia. She received her 2nd ECT on 09/10 and was reportedly doing okay after, but on 09/11 after a nap she was unable to speak or move, and was brought into [facility]. Per record reported that she had a similar episode 3 years ago. She was receiving ativan 1mg IV Q6H in ER which was a continued order for [facility]. Pt is currently on sodium chloride solution Q10H, 100/ML/HR. Pt has Right wrist IV, 20 G. Pt has gomes catheter 16 bolivian, secured to left leg gravity draining clear, yellow. Per chart pt has been unable to urinate on her own and has a hx of hesitancy. IV fluids necessary due to inability to open mouth. Medical Hx per chart: Bipolar, anxiety, hypothyroidism, TBI Assessment What has happened this shift: Pt in bed with sitter at bed side. Pt was awake looking around. Pt able to speek and answer in a very soft voice. Pt requires assistance with toileting is able to feed self and was med compliant. S/I, H/I: Pt does not answer the questions. A/VH: Pt does not answer the questions. Sleep: Pt slept 7.5 hours last night per noc shift report, she napped frequently during the day, up out of bed for toileting and meals. ADL's: Extensive assist of 2 for transfers and toileting, 1-2 person assist with repositioning/bed mobility and hygiene, 1 person assist with meals, pt unable to ambulate today and used w/c which she is unable to self-propel. Group attendance: No Were meds taken: Yes Any med S/E: Pt reports that the Ativan makes her feel sleepy though acknowledges that she also felt sleepy before she was started on Ativan. Mental Status Exam Appearance: Frail, fatigued looking white haired woman dressed in hospital scrubs. Eye contact: Good Behavior: Slow moving and speaking, needs much encouragement to get up in w/c for meals. Speech: Very soft, minimal, mumbled at times, difficult to understand. Mood: Appears depressed Affect: Flat Thought process: Confused, unsure why she is here or what the plan is. Thought Content: Wants to know what the plan is, does not like the IV; wants it removed. Cognition: A/O X 2 Insight: Poor Judgment: Poor Interventions PRN's used: None Therapeutic interventions: 1:1 assessment, establishment of rapport, encouraged pt to express her thoughts and feelings, active listening, medication administration/education/monitoring, IV push medications, fall prevention, skin breakdown prevention, repositioning Q 2H in while in bed, encouragement to get up in w/c for meals, encouragement of food and fluids, LOS level of observation. Restraints/seclusion/emergency medication: NA Justification of Continued Inpatient Treatment: Pt goes in and out of catatonia and needs medication adjustment and monitoring in a safe and therapeutic environment. Pt is gravely disabled.
[2020-10-01] MEDS: LORazepam 2 mg/ml vial IV SCH ×3 (04:00→08:57)
[2020-10-01] MEDS: fluvoxamine 25 MG tablet PO SCH ×2 (07:47→19:39)
[2020-10-01] MEDS: levoTHYROXINE 25mcg tablet PO SCH (07:47)
[2020-10-01] MEDS: docusate sod 100mg capsule PO SCH ×2 (07:47→19:39)
[2020-10-01] MEDS: lithium carbonate 150mg capsule PO SCH ×2 (07:47→12:50)
[2020-10-01 08:31] VITALS: BP 114/67
[2020-10-01] MEDS: benztropine 1 mg/ml 2ml ampule IV SCH (08:58)
[2020-10-01] MEDS ORDERED: LORazepam 1 MG tablet PO SCH ×3 (12:00→16:00)
--- NOTE | 2020-10-01 14:54 | NUR ---
Nursing Progress Note: Legal hold: Voluntary Report received from Rut CABEZAS with use of SBAR Why are they here: Pt was brought into ED on 09/11/20, reportedly catatonic by . She was unable to speak or move. reports she was taken off lithium 41 days ago and since then has been going in and out of catatonia. She received her 2nd ECT on 09/10 and was reportedly doing okay after, but on 09/11 after a nap she was unable to speak or move, and was brought into [facility]. Per record reported that she had a similar episode 3 years ago. She was receiving ativan 1mg IV Q6H in ER which was a continued order for [facility]. Pt is currently on sodium chloride solution Q10H, 100/ML/HR. Pt has Right wrist IV, 20 G. Pt has gomes catheter 16 sri lankan, secured to left leg gravity draining clear, yellow. Per chart pt has been unable to urinate on her own and has a hx of hesitancy. IV fluids necessary due to inability to open mouth. Medical Hx per chart: Bipolar, anxiety, hypothyroidism, TBI Assessment What has happened this shift: Pt was more alert this morning, she was bright eye-d, able to help more with transfers and bed mobility, and able to feed herself. Pt ate 75% of breakfast and lunch and was taking fluids better today; pt was able to hold her own cup and drink from a straw. No swallowing difficulties or coughing during meals observed. Pt was given her IV Ativan after breakfast. Sitter reported a significant decrease in alertness and ability to help with ADLs after being given the Ativan. Pt was able to swallow her meds crushed in applesauce without difficulty this morning. She also was able to swallow her colace whole in applesauce with a little more difficulty. PCT reported that the pt had been pulling on her saline lock this morning trying to remove it. PCT reports that pt becomes irritable when increased autonomy with ADLs encouraged, she also does not appreciate being repositioned in bed Q 2 hours. Discussed IV meds with Dr Potts who ordered to D/c IV Ativan and Cogentin and change to PO. D/c'd saline lock right AC. Initially did not wish to decrease the Ativan strength. Pt was able ambulate to the dining room before lunch today with FWW, gait belt, and assist of one. She was initially feeding herself again. However; after being given her routine Ativan 1 mg this time PO, PCT again reported that pt became drowsy, would no longer feed herself and required more assistance with transfers and ADLs. Reported findings to psychiatrist who ordered to decrease routine Ativan to 0.5 mg. He also ordered a BMP and a Schaller level for tomorrow and for the Schaller to be held until after tomorrow's lab results. Pt appears depressed and irritable. She is able to verbalize though is so soft spoken that she remains quite difficult to understand. Statements are often nonsensical or indecipherable. S/I, H/I: Unable to determine, pt does not answer the questions or answers so softly, unable to understand. A/VH: Pt does not appear to be responding to internal stimuli. Sleep: Pt slept 8 hours last night per noc shift report, she napped frequently during the day, up out of bed for toileting and meals. ADL's: Improved performance in ADLs today, pt was able to ambulate with FWW and assist and was stronger during transfers. She still requires extensive assist of 2 at times for transfers and toileting. Group attendance: No Were meds taken: Yes Any med S/E: Per pt and PCT sitter, Ativan causes drowsiness and decreased function in ADLs. Mental Status Exam Appearance: Frail, fatigued looking white haired woman dressed in hospital scrubs. Eye contact: Good Behavior: Slow moving and speaking, needs much encouragement for increased autonomy in ADLS. Speech: Very soft, minimal, mumbled, difficult to understand. Mood: Appears depressed and irritable at times. Affect: Blunted Thought process: Confused, pleased that the IV is out. Thought Content: Resistant to frequent repositioning and staying out of bed for long. Cognition: A/O X 1 Insight: Poor Judgment: Poor Interventions PRN's used: None Therapeutic interventions: 1:1 assessment, establishment of rapport, encouraged pt to express her thoughts and feelings, active listening, medication administration/education/monitoring, fall prevention, skin breakdown prevention, repositioning Q 2H in while in bed, encouragement to get up for meals, encouragement of food and fluids, encouragement to ambulate with assist, LOS level of observation. Restraints/seclusion/emergency medication: NA Justification of Continued Inpatient Treatment: Pt's LOC and function fluctuates, she needs medication adjustment and monitoring in a safe and therapeutic environment. Pt is gravely disabled. Addendum: 10/01/20 at 1704 by Kaylee Gonzalez" Woodman CABEZAS PCT/christina reported that pt had been saying she had to go to the bathroom Q 15 to 20 minutes but when transferred to the commode did not void most of the time. PCT decided to not use the commode and told pt that they would walk into the bathroom when she had to go. Pt then waited to request to use the bathroom only every 1 1/2 to 2 hours. She did then actually void when toileted. Pt was continent of urine.
[2020-10-01] MEDS: benztropine 1mg tablet PO SCH (19:40)
[2020-10-01] MEDS: mirtazapine 15mg tablet PO SCH (19:43)
[2020-10-01] MEDS: LORazepam 0.5 MG tablet PO SCH ×2 (19:51→23:00)
[2020-10-01 20:00] VITALS: BP 124/77
[2020-10-01] MEDS ORDERED: LORazepam 0.5 MG tablet PO PRN (20:00)
--- NOTE | 2020-10-02 05:36 | NUR ---
Nursing Progress Note: Legal hold: Voluntary. Report received from JOCELYNN Montano with use of SBAR Why are they here: Pt was brought into ED on 09/11/20, reportedly catatonic by . She was unable to speak or move. reports she was taken off lithium 41 days ago and since then has been going in and out of catatonia. She received her 2nd ECT on 09/10 and was reportedly doing okay after, but on 09/11 after a nap she was unable to speak or move, and was brought into [facility]. Per record reported that she had a similar episode 3 years ago. She was receiving ativan 1mg IV Q6H in ER which was a continued order for [facility]. Pt is currently on sodium chloride solution Q10H, 100/ML/HR. Pt has Right wrist IV, 20 G. Pt has gomes catheter 16 israeli, secured to left leg gravity draining clear, yellow. Per chart pt has been unable to urinate on her own and has a hx of hesitancy. IV fluids necessary due to inability to open mouth. Medical Hx per chart: Bipolar, anxiety, hypothyroidism, TBI Assessment: What has happened this shift:Patient is out of room in communal areas after shift change. She is ambulatory with the use of a walker. Patient ambulates slowly. Patient is under direct observation by a sitter. Patient is very quiet in speech. Patient does not like being repositioned in bed, she speaks her displeasure. Patient denies S/I or H/i. She denies hallucinations. Patient is very stoic. Some words are unintelligible. It is difficult to evaluate patients orientation level. S/I, H/I: Unable to determine, pt does not answer the questions or answers so softly, unable to understand. A/VH: Denies.. Sleep: Will tally at 0500 hrs. ADL's: Patient assisted into and out of bed, commode used at bedside. Group attendance: No group on office support clerk. Were meds taken: Yes, medication compliant. Any med S/E: None noted or observed. Mental Status Exam Appearance: Disheveled female, elderly, wearing unit attire. Eye contact: Fair. Behavior: Resistant to care. Speech: Very soft, minimal, mumbled, difficult to understand. Mood: Appears depressed and irritable at times. Affect: Flat. Thought process: Does not discuss.. Thought Content: Difficult to evaluate. Cognition: Alert, oriented to person. Insight: Poor Judgment: Poor Interventions PRN's used: None Therapeutic interventions: 1:1 assessment, establishment of rapport, encouraged pt to express her thoughts and feelings, active listening, medication administration/education/monitoring, fall prevention, skin breakdown prevention, repositioning Q 2H in while in bed, encouragement to get up for meals, encouragement of food and fluids, encouragement to ambulate with assist, LOS level of observation. Restraints/seclusion/emergency medication: NA Justification of Continued Inpatient Treatment: Pt's LOC and function fluctuates, she needs medication adjustment and monitoring in a safe and therapeutic environment. Pt is gravely disabled.
[2020-10-02 08:00] VITALS: BP 132/73
[2020-10-02] MEDS: fluvoxamine 25 MG tablet PO SCH ×2 (08:02→19:54)
[2020-10-02] MEDS: LORazepam 0.5 MG tablet PO SCH ×4 (08:03→20:03)
[2020-10-02] MEDS: benztropine 1mg tablet PO SCH ×2 (08:03→19:56)
[2020-10-02] MEDS: levoTHYROXINE 25mcg tablet PO SCH (08:03)
[2020-10-02] MEDS: docusate sod 100mg capsule PO SCH ×2 (08:03→19:54)
--- NOTE | 2020-10-02 10:00 | NUR ---
Group Therapy: Process Group This Clinicians goals for this process group were as follows: (1) Ask scaling questions about patients current anxiety, depression, and irritability symptoms as a check-in. (2) Share with patients psychoeducation about the importance of being able to identify safe, and supportive people who can assist them with their mental and emotional needs. (3) Share psychoeducation on interpersonal boundaries and considerations to assist patients in developing the ability to discern which groups and individuals will be helpful in assisting them during times of emotional escalation and crisis. (4) Engage patients in discussion of the topics discussed within the group milieu. Patient identified experiencing the following levels of anxiety, depression, and anger/irritability while present in the group milieu (0-low; 10-High). Anxiety: 03/26 Depression: 04/25 Anger/irritability: No answer given/ Patient presented as properly oriented x4 during the process group. Patient was dressed in nondescript, personal clothing that were appropriate within the milieu. Psychomotor activity was very subdued. She barely moved during the process group. Patient was seated in a wheelchair, and ambulated with it's assistance. This Clinician was unable to assess Patient's thought process or content, as her tone of voice was very low and subdued, which made it difficult for this Clinician to understand her. This Clinician did not observe Patient responding to any internal stimuli during session. The rate, and latency of Patients speech was delayed. Her tone of voice was very soft, almost to the point where it was unhearable. Patient maintained regular eye contact with this Clinician. Patient presented in calm mood, with flat affect during the process group. Patient presented as cooperative, and nonobtrusive within the group milieu. Patient presented as verbally subdued during the process group discussion of interpersonal boundaries in the context of identifying safe, and supportive people that one could speak to in order to receive mental health support. This Clinician attempted to involve Patient in conversation on a couple of different occasions, and could tell that she was trying to verbalize an answer; however, her tone of voice was so faint her answers were not understandable--still this Clinician thanked Patient for her willingness to participate. Frantz Mahoney MA, [facility] Addendum: 10/03/20 at 0822 by Frantz Mahoney SS Amended: Links added.
[2020-10-02 10:33] LABS: ALBUMIN 3.7 G/DL (3.4-5.0); ANION GAP 8 (8-16); BLOOD UREA NITROGEN 13 MG/DL (7-18); BUN/CREATININE RATIO 10.6 (6.6-38.0); CALCIUM 10.6 MG/DL (8.5-10.1); CHLORIDE 109 MMOL/L (99-107); CREATININE 1.23 MG/DL (0.40-0.90); GLUCOSE 128 MG/DL (70-104); POTASSIUM 3.3 MMOL/L (3.5-5.1); SODIUM 145 MMOL/L (135-145); eGFR 44 ML/MIN
--- NOTE | 2020-10-02 13:12 | NUR ---
NURSING PROGRESS NOTE Legal hold: Voluntary. Report received from JOCELYNN Bettencourt with use of SBAR Why are they here: Pt was brought into ED on 09/11/20, reportedly catatonic by . She was unable to speak or move. reports she was taken off lithium 41 days ago and since then has been going in and out of catatonia. She received her 2nd ECT on 09/10 and was reportedly doing okay after, but on 09/11 after a nap she was unable to speak or move, and was brought into [facility]. Per record reported that she had a similar episode 3 years ago. She was receiving ativan 1mg IV Q6H in ER which was a continued order for [facility]. Pt is currently on sodium chloride solution Q10H, 100/ML/HR. Pt has Right wrist IV, 20 G. Pt has gomes catheter 16 dominican, secured to left leg gravity draining clear, yellow. Per chart pt has been unable to urinate on her own and has a hx of hesitancy. IV fluids necessary due to inability to open mouth. Medical Hx per chart: Bipolar, anxiety, hypothyroidism, TBI Assessment: What has happened this shift: Doing better today, up walking to group room with assistance and encouragement. Went to groups. Feeding herself today and swallowing pills when given to her in a med cup. Brighter affect. Denies suicidal thoughts. Repositioned in bed per orders and up frequently. S/I, H/I: Denies A/VH: Denies.. Sleep: napped ADL's: Patient assisted into and out of bed, commode used at bedside. Group attendance: yes Were meds taken: Yes Any med S/E: None noted or observed. Mental Status Exam Appearance: Disheveled female, elderly, wearing unit attire. Eye contact: poor to fair Behavior: Resistant to some care Speech: Very soft, minimal, mumbled, difficult to understand. Mood: Depressed Affect: Flat. Thought process: Poverty of thought Thought Content: Difficult to evaluate. Cognition: Alert, oriented to person. Insight: Poor Judgment: Poor Interventions PRN's used: None Therapeutic interventions: 1:1 assessment, establishment of rapport, encouraged pt to express her thoughts and feelings, active listening, medication administration/education/monitoring, fall prevention, skin breakdown prevention, repositioning Q 2H in while in bed, encouragement to get up for meals, encouragement of food and fluids, encouragement to ambulate with assist, LOS level of observation. Restraints/seclusion/emergency medication: NA Justification of Continued Inpatient Treatment: Pt's LOC and function fluctuates, she needs medication adjustment and monitoring in a safe and therapeutic environment. Pt is gravely disabled.
[2020-10-02] MEDS ORDERED: lithium carbonate 150mg capsule PO ONE (13:25)
[2020-10-02] MEDS: lithium carbonate 150mg capsule PO SCH (16:50)
[2020-10-02] MEDS: mirtazapine 15mg tablet PO SCH (19:55)
[2020-10-02 20:00] VITALS: BP 102/70
[2020-10-03 07:51] VITALS: BP 130/82
[2020-10-03] MEDS: LORazepam 0.5 MG tablet PO SCH ×4 (08:03→21:00)
[2020-10-03] MEDS: fluvoxamine 25 MG tablet PO SCH ×2 (08:03→20:58)
[2020-10-03] MEDS: lithium carbonate 150mg capsule PO SCH ×3 (08:03→17:17)
[2020-10-03] MEDS: docusate sod 100mg capsule PO SCH ×2 (08:04→20:59)
[2020-10-03] MEDS: levoTHYROXINE 25mcg tablet PO SCH (08:04)
[2020-10-03] MEDS: benztropine 1mg tablet PO SCH (08:04)
--- NOTE | 2020-10-03 14:23 | NUR ---
NURSING PROGRESS NOTE Legal hold: Voluntary. Report received from JOCELYNN Carpenter with use of SBAR Why are they here: Pt was brought into ED on 09/11/20, reportedly catatonic by . She was unable to speak or move. reports she was taken off lithium 41 days ago and since then has been going in and out of catatonia. She received her 2nd ECT on 09/10 and was reportedly doing okay after, but on 09/11 after a nap she was unable to speak or move, and was brought into [facility]. Per record reported that she had a similar episode 3 years ago. She was receiving ativan 1mg IV Q6H in ER which was a continued order for [facility]. Pt is currently on sodium chloride solution Q10H, 100/ML/HR. Pt has Right wrist IV, 20 G. Pt has gomes catheter 16 icelandic, secured to left leg gravity draining clear, yellow. Per chart pt has been unable to urinate on her own and has a hx of hesitancy. IV fluids necessary due to inability to open mouth. Medical Hx per chart: Bipolar, anxiety, hypothyroidism, TBI Assessment: What has happened this shift: Awake at change of shift and up to commode. Up to breakfast via wheelchair, fed self and asking questions today although she is hard to hear due to volume of voice. Ambulated to group room for lunch with assist. Doing well. Reports feeling tired in afternoon. Takes meds when handed to her without difficulty. S/I, H/I: Denies A/VH: Denies.. Sleep: napped ADL's: Patient assisted into and out of bed, commode used at bedside. Group attendance: yes Were meds taken: Yes Any med S/E: None noted or observed. Mental Status Exam Appearance: well groomed in green scrubs, hair fixed Eye contact: fair Behavior: needs wait time, cooperative Speech: Very soft, minimal, mumbled, difficult to understand. Mood: Depressed Affect: Flat. Thought process: circumstantial Thought Content: asking questions about care, meds Cognition: Alert Insight: fair Judgment: fair Interventions PRN's used: None Therapeutic interventions: 1:1 assessment, establishment of rapport, encouraged pt to express her thoughts and feelings, active listening, medication administration/education/monitoring, fall prevention, skin breakdown prevention, repositioning Q 2H in while in bed, encouragement to get up for meals, encouragement of food and fluids, encouragement to ambulate with assist, LOS level of observation. Restraints/seclusion/emergency medication: NA Justification of Continued Inpatient Treatment: Pt's LOC and function fluctuates, she needs medication adjustment and monitoring in a safe and therapeutic environment. Pt is gravely disabled.
[2020-10-03 19:14] VITALS: BP 125/72
[2020-10-03] MEDS ORDERED: POTASSIUM BICARBONATE/CIT AC 10 MEQ TABLET.EFF PO ONE ×2 (19:35→19:50)
[2020-10-03] MEDS: mirtazapine 15mg tablet PO SCH (20:59)
--- NOTE | 2020-10-04 01:55 | NUR ---
Nursing Progress Note: Legal hold: Voluntary Report received from Colin CABEZAS with use of SBAR Why are they here: Pt was brought into ED on 09/11/20, reportedly catatonic by . She was unable to speak or move. reports she was taken off lithium 41 days ago and since then has been going in and out of catatonia. She received her 2nd ECT on 09/10 and was reportedly doing okay after, but on 09/11 after a nap she was unable to speak or move, and was brought into [facility]. Per record reported that she had a similar episode 3 years ago. She was receiving ativan 1mg IV Q6H in ER which was a continued order for [facility]. Pt is currently on sodium chloride solution Q10H, 100/ML/HR. Pt has Right wrist IV, 20 G. Pt has gomes catheter 16 south sudanese, secured to left leg gravity draining clear, yellow. Per chart pt has been unable to urinate on her own and has a hx of hesitancy. IV fluids necessary due to inability to open mouth. Medical Hx per chart: Bipolar, anxiety, hypothyroidism, TBI Assessment What has happened this shift: Pt in bed with sitter at bed side. Pt was awake looking around. Pt able to speak and answer in a very soft voice. Pt requires assistance x2 with toileting and requests to get up to use the commode often, sometimes she is able to void, sometimes she is not. Fluids encouraged. Pt's potassium is 3.3, consulted, potassium bicarb replacement ordered and given with no issue. S/I, H/I: Pt does not answer the questions. A/VH: Pt does not answer the questions. Sleep: see sleep assessment ADL's: Extensive assist of 2 for transfers and toileting, 1-2 person assist with repositioning/bed mobility and hygiene, 1 person assist with meals, pt unable to ambulate today and used w/c which she is unable to self-propel. Group attendance: No Were meds taken: Yes Any med S/E: Pt reports feeling tired Mental Status Exam Appearance: Frail, fatigued looking white haired woman dressed in hospital scrubs. Eye contact: Good Behavior: Slow moving and speaking, needs much encouragement to get up in w/c for meals. Speech: Very soft, minimal, mumbled at times, difficult to understand. Mood: Appears depressed Affect: Flat Thought process:YARELIS Thought Content: circumstantial Cognition: A/O X 2 Insight: Poor Judgment: Poor Interventions PRN's used: None Therapeutic interventions: 1:1 assessment, establishment of rapport, encouraged pt to express her thoughts and feelings, active listening, medication administration/education/monitoring, IV push medications, fall prevention, skin breakdown prevention, repositioning Q 2H in while in bed, encouragement to get up in w/c for meals, encouragement of food and fluids, LOS level of observation. Restraints/seclusion/emergency medication: NA Justification of Continued Inpatient Treatment: Pt goes in and out of catatonia and needs medication adjustment and monitoring in a safe and therapeutic environment. Pt is gravely disabled.
[2020-10-04] MEDS: LORazepam 0.5 MG tablet PO SCH ×4 (06:00→20:33)
[2020-10-04 07:49] VITALS: BP 124/72
[2020-10-04] MEDS: levoTHYROXINE 25mcg tablet PO SCH (07:58)
[2020-10-04] MEDS: fluvoxamine 25 MG tablet PO SCH ×2 (07:58→20:34)
[2020-10-04] MEDS: docusate sod 100mg capsule PO SCH ×2 (07:58→20:33)
[2020-10-04] MEDS: lithium carbonate 150mg capsule PO SCH ×3 (07:58→16:45)
--- NOTE | 2020-10-04 15:50 | NUR ---
NURSING PROGRESS NOTE Legal hold: Voluntary. Report received from JOCELYNN Carpenter with use of SBAR Why are they here: Pt was brought into ED on 09/11/20, reportedly catatonic by . She was unable to speak or move. reports she was taken off lithium 41 days ago and since then has been going in and out of catatonia. She received her 2nd ECT on 09/10 and was reportedly doing okay after, but on 09/11 after a nap she was unable to speak or move, and was brought into [facility]. Per record reported that she had a similar episode 3 years ago. She was receiving ativan 1mg IV Q6H in ER which was a continued order for [facility]. Pt is currently on sodium chloride solution Q10H, 100/ML/HR. Pt has Right wrist IV, 20 G. Pt has gomes catheter 16 upper [place], secured to left leg gravity draining clear, yellow. Per chart pt has been unable to urinate on her own and has a hx of hesitancy. IV fluids necessary due to inability to open mouth. Medical Hx per chart: Bipolar, anxiety, hypothyroidism, TBI Assessment: What has happened this shift: Awake most of day. Up to breakfast and lunch via ambulation with walker and assist. Patient moving better today and bearing her own weight. Feeding herself and speaking louder. Asking questions and for things she wants and needs. Denies suicidal thoughts. PT evaluation today. Per PT they believe she is at her baseline. S/I, H/I: Denies A/VH: Denies.. Sleep: napped ADL's: Patient assisted into and out of bed, commode used at bedside. Group attendance: yes Were meds taken: Yes Any med S/E: None noted or observed. Mental Status Exam Appearance: well groomed in green scrubs, hair fixed Eye contact: fair Behavior: cooperative Speech: speaking louder and clearer today Mood: Depressed Affect: Blunted Thought process: circumstantial Thought Content: asking questions about care, meds Cognition: Alert Insight: fair Judgment: fair Interventions PRN's used: None Therapeutic interventions: 1:1 assessment, establishment of rapport, encouraged pt to express her thoughts and feelings, active listening, medication administration/education/monitoring, fall prevention, skin breakdown prevention, repositioning Q 2H in while in bed, encouragement to get up for meals, encouragement of food and fluids, encouragement to ambulate with assist, LOS level of observation. Restraints/seclusion/emergency medication: NA Justification of Continued Inpatient Treatment: Pt's LOC and function fluctuates, she needs medication adjustment and monitoring in a safe and therapeutic environment. Pt is gravely disabled.
[2020-10-04 19:27] VITALS: BP 115/70
[2020-10-04] MEDS: mirtazapine 15mg tablet PO SCH (20:33)
--- NOTE | 2020-10-05 01:57 | NUR ---
Nursing Progress Note: Legal hold: Voluntary Report received from Colin CABEZAS with use of SBAR Why are they here: Pt was brought into ED on 09/11/20, reportedly catatonic by . She was unable to speak or move. reports she was taken off lithium 41 days ago and since then has been going in and out of catatonia. She received her 2nd ECT on 09/10 and was reportedly doing okay after, but on 09/11 after a nap she was unable to speak or move, and was brought into [facility]. Per record reported that she had a similar episode 3 years ago. She was receiving ativan 1mg IV Q6H in ER which was a continued order for [facility]. Pt is currently on sodium chloride solution Q10H, 100/ML/HR. Pt has Right wrist IV, 20 G. Pt has gomes catheter 16 nepalese, secured to left leg gravity draining clear, yellow. Per chart pt has been unable to urinate on her own and has a hx of hesitancy. IV fluids necessary due to inability to open mouth. Medical Hx per chart: Bipolar, anxiety, hypothyroidism, TBI Assessment What has happened this shift: Pt in bed all evening except for toileting. She is rigid during transfers, not standing well on her own. However, the pt moved her self up in bed. Pt answered some of the questions if this RN repeated them a few times. She was asked to speak louder and would restate her sentence at an audible level by the 3rd time. She is compliant with all medications and sleeps well. S/I, H/I: Pt does not answer the questions. A/VH: Pt does not answer the questions. Sleep: See sleep assessment ADL's: Extensive assist of 2 for transfers and toileting, 1-2 person assist with repositioning/bed mobility and hygiene, 1 person assist with meals, Group attendance: N/A Were meds taken: Yes Any med S/E: Pt reports feeling tired Mental Status Exam Appearance: Frail, fatigued looking white haired woman dressed in hospital scrubs. Eye contact: Good Behavior: Needs much encouragement to get up in w/c for meals, Pt is chairfast and bedfast. Speech: Very soft like a whisper, minimal, mumbled at times, difficult to understand. Mood: Presents as depressed Affect: Flat Thought process: YARELIS Thought Content: YARELIS, answers direct questions but otherwise does not provide spontaneous conversation Cognition: A/Ox2 Insight: Poor Judgment: Poor Interventions PRN's used: None Therapeutic interventions: 1:1 assessment, establishment of rapport, encouraged pt to express her thoughts and feelings, active listening, medication administration/education/monitoring, IV push medications, fall prevention, skin breakdown prevention, repositioning Q 2H in while in bed, encouragement to get up in w/c for meals, encouragement of food and fluids, LOS level of observation. Restraints/seclusion/emergency medication: NA Justification of Continued Inpatient Treatment: Pt goes in and out of catatonia and needs medication adjustment and monitoring in a safe and therapeutic environment. Pt is gravely disabled.
[2020-10-05] MEDS: LORazepam 0.5 MG tablet PO SCH ×4 (06:00→20:42)
[2020-10-05 08:00] VITALS: BP 123/68
[2020-10-05] MEDS: docusate sod 100mg capsule PO SCH ×2 (08:35→20:42)
[2020-10-05] MEDS: levoTHYROXINE 25mcg tablet PO SCH (08:35)
[2020-10-05] MEDS: fluvoxamine 25 MG tablet PO SCH ×2 (08:35→20:42)
[2020-10-05] MEDS: lithium carbonate 150mg capsule PO SCH ×3 (08:35→16:58)
--- NOTE | 2020-10-05 11:54 | NUR ---
called stating that Physical Therapy called him and wanted to clarify her baseline. He states her baseline is she goes to the gym twice a week and physical therapy twice a week. She normally walks and drives.
--- NOTE | 2020-10-05 17:50 | NUR ---
NURSING PROGRESS NOTE Legal hold: Voluntary. Report received from RN with use of SBAR Why are they here: Pt was brought into ED on 09/11/20, reportedly catatonic by . She was unable to speak or move. reports she was taken off lithium 41 days ago and since then has been going in and out of catatonia. She received her 2nd ECT on 09/10 and was reportedly doing okay after, but on 09/11 after a nap she was unable to speak or move, and was brought into [facility]. Per record reported that she had a similar episode 3 years ago. She was receiving ativan 1mg IV Q6H in ER which was a continued order for [facility]. Pt is currently on sodium chloride solution Q10H, 100/ML/HR. Pt has Right wrist IV, 20 G. Pt has gomes catheter 16 lao, secured to left leg gravity draining clear, yellow. Per chart pt has been unable to urinate on her own and has a hx of hesitancy. IV fluids necessary due to inability to open mouth. Medical Hx per chart: Bipolar, anxiety, hypothyroidism, TBI Assessment: What has happened this shift: Received Pt in bed resting w/o distress at beginning of shift. Pt cooperative with vitals and was out of bed with assistance and ambulated with assistance to community room for breakfast. Pt discussed her AM meds with this RN and them took them w/o issue. Pt ate all meals in community room well. Pt better today about communicating when she needs to use bathroom and was taken to bathroom and pivoted to toilet multiple times. Pt states she is afraid hell think I can get up by myself and go to the bathroom, speaking of returning home. Pt fearful of effects of meds prior to admission, as she had issues with kidney function r/t lithium. Spoke to on phone who [id number] ago she was walking, driving and going to the gym. Pt appears to be fearful of walking and doing ADLs and showing us how capable she currently is. S/I, H/I: Denies A/VH: Denies.. Sleep: napped ADL's: Patient assisted into and out of bed, commode used at bedside. Group attendance: NA Were meds taken: Yes Any med S/E: None noted or observed. Mental Status Exam Appearance: Well groomed in green scrubs, hair fixed Eye contact: Good Behavior: cooperative Speech: speaking louder and clearer today Mood: Depressed Affect: Blunted Thought process: circumstantial Thought Content: asking questions about care, meds Cognition: Alert Insight: fair Judgment: fair Interventions PRN's used: None Therapeutic interventions: 1:1 assessment, establishment of rapport, encouraged pt to express her thoughts and feelings, active listening, medication administration/education/monitoring, fall prevention, skin breakdown prevention, repositioning Q 2H in while in bed, encouragement to get up for meals, encouragement of food and fluids, encouragement to ambulate with assist, LOS level of observation. Restraints/seclusion/emergency medication: NA Justification of Continued Inpatient Treatment: Pt's LOC and function fluctuates, she needs medication adjustment and monitoring in a safe and therapeutic environment. Pt is gravely disabled.
[2020-10-05 19:35] VITALS: BP 119/74
[2020-10-05] MEDS: mirtazapine 15mg tablet PO SCH (20:42)
--- NOTE | 2020-10-06 01:58 | NUR ---
Nursing Progress Note: Legal hold: Voluntary Report received from Colin CABEZAS with use of SBAR Why are they here: Pt was brought into ED on 09/11/20, reportedly catatonic by . She was unable to speak or move. reports she was taken off lithium 41 days ago and since then has been going in and out of catatonia. She received her 2nd ECT on 09/10 and was reportedly doing okay after, but on 09/11 after a nap she was unable to speak or move, and was brought into [facility]. Per record reported that she had a similar episode 3 years ago. She was receiving ativan 1mg IV Q6H in ER which was a continued order for [facility]. Pt is currently on sodium chloride solution Q10H, 100/ML/HR. Pt has Right wrist IV, 20 G. Pt has gomes catheter 16 [place], secured to left leg gravity draining clear, yellow. Per chart pt has been unable to urinate on her own and has a hx of hesitancy. IV fluids necessary due to inability to open mouth. Medical Hx per chart: Bipolar, anxiety, hypothyroidism, TBI Assessment What has happened this shift: The patient was seen in the community room. She was sitting in her usual spot. She tells this underwriter solicitation director that she's not doing well, or getting better. She stayed in her spot until snack time when she was helped to her room. She accepted her meds in bed, then asked for the light to be turned, so she could sleep. S/I, H/I: Pt does not answer the questions. A/VH: Pt does not answer the questions. Sleep: See sleep assessment ADL's: Extensive assist of 2 for transfers and toileting, 1-2 person assist with repositioning/bed mobility and hygiene, 1 person assist with meals, Group attendance: N/A Were meds taken: Yes Any med S/E: None reported or observed Mental Status Exam Appearance: Frail, fatigued looking white haired woman dressed in hospital scrubs. Eye contact: Good Behavior: Depressed, fatigued Speech: Speaks very lightly, must get close to understand. Mood: Depressed Affect: Flat Thought process: YARELIS Thought Content: YARELIS, answers direct questions but otherwise does not provide spontaneous conversation Cognition: A/Ox2 Insight: Poor Judgment: Poor Interventions PRN's used: None Therapeutic interventions: 1:1 assessment, establishment of rapport, encouraged pt to express her thoughts and feelings, active listening, medication administration/education/monitoring, IV push medications, fall prevention, skin breakdown prevention, repositioning Q 2H in while in bed, encouragement to get up in w/c for meals, encouragement of food and fluids, LOS level of observation. Restraints/seclusion/emergency medication: NA Justification of Continued Inpatient Treatment: Pt goes in and out of catatonia and needs medication adjustment and monitoring in a safe and therapeutic environment. Pt is gravely disabled.
[2020-10-06] MEDS: LORazepam 0.5 MG tablet PO SCH ×4 (06:41→20:35)
[2020-10-06] MEDS: levoTHYROXINE 25mcg tablet PO SCH (06:41)
[2020-10-06 07:57] VITALS: BP 120/72
[2020-10-06] MEDS: fluvoxamine 25 MG tablet PO SCH ×2 (08:10→20:35)
[2020-10-06] MEDS: docusate sod 100mg capsule PO SCH ×2 (08:10→20:35)
[2020-10-06] MEDS: lithium carbonate 150mg capsule PO SCH ×3 (08:10→17:16)
--- NOTE | 2020-10-06 11:13 | NUR ---
Reassessment: Pt s/p BSS today with ST recs advancing diet from pureed to minced and moist grind all with thin liquids. Pt with slightly fluctuating PO intake though appears to be improving with average 75-100% PO intake since 10/03. Wt stable with admit. [facility] 10/01, receiving routine bowel care. No GI symptoms per care trends. Will continue to follow and monitor need for nutrition intervention pending trends in PO intake since upgraded texture modification. Rec: 1. continue minced and moist grind all vegetarian diet with thin liquids per ST recs 2. MVI supplementation on vegetarian diet 3. routine bowel care 4. weekly wts Addendum: 10/06/20 at [address] Amended: Links added. Addendum: 10/06/20 at [address] Correction: [facility] 10/06
--- NOTE | 2020-10-06 16:04 | NUR ---
NURSING PROGRESS NOTE Legal hold: Voluntary. Report received from RN with use of SBAR: JOCELYNN Perea Why are they here: Pt was brought into ED on 09/11/20, reportedly catatonic by . She was unable to speak or move. reports she was taken off lithium 41 days ago and since then has been going in and out of catatonia. She received her 2nd ECT on 09/10 and was reportedly doing okay after, but on 09/11 after a nap she was unable to speak or move, and was brought into [facility]. Per record reported that she had a similar episode 3 years ago. She was receiving ativan 1mg IV Q6H in ER which was a continued order for [facility]. Pt is currently on sodium chloride solution Q10H, 100/ML/HR. Pt has Right wrist IV, 20 G. Pt has gomes catheter 16 m[place], secured to left leg gravity draining clear, yellow. Per chart pt has been unable to urinate on her own and has a hx of hesitancy. IV fluids necessary due to inability to open mouth. Medical Hx per chart: Bipolar, anxiety, hypothyroidism, TBI Assessment: What has happened this shift: Received patient awake at shift change. Pt acknowledges sql report writer upon greeting. Pt is assisted to bathroom then walked down to community room for breakfast. Pt ate breakfast then requested to use bathroom for a BM. Pt ambulated back to community room with assist. Pt continues to have some negative talk, but sql report writer requests a positive comment for each negative. Pt verbalizes some fear in regard to her ambulation. Pt is reassured of her safety and staff's willingness to assist her. Pt remained in community room until after lunch. Pt then had a meeting with her and Dr. Potts, which seemed to go well. Pt is compliant with medications and asks sql report writer what each of her meds are. Pt still has some latency in her thought process, however improving. Pt ambulated to all meals and remained up out of bed the entire shift. S/I, H/I: Denies both. A/VH: Denies both. Sleep: 7.5 hours per NOC sleep assessment. No naps today. ADL's: Patient requires assistance to ambulate to community room and to bathroom. Getting stronger. Group attendance: Was going to attend PM group, but had meeting with and Dr. Potts. Were meds taken: Yes, but required names of each medication. Any med S/E: None reported or observed. Mental Status Exam Appearance: Well groomed in green scrubs, hair pulled back into a ponytail. Eye contact: Good Behavior: Cooperative, fearful of some ADL's, willing to push herself. Speech: Soft. Pt will speak louder if asked. Spontaneous Mood: Depressed, slightly anxious Affect: Blunted Thought process: Situational. Thought Content: Visiting . Cognition: A&Ox4 Insight: Fair Judgment: Fair Interventions PRN's used: None Therapeutic interventions: 1:1 assessment, establishment of rapport, encouraged pt to express her thoughts and feelings, active listening, medication administration/education/monitoring, fall prevention, skin breakdown prevention, repositioning Q 2H in while in bed, encouragement to get up for meals, encouragement of food and fluids, encouragement to ambulate with assist, LOS level of observation. Restraints/seclusion/emergency medication: NA Justification of Continued Inpatient Treatment: Pt's LOC and function fluctuates, she needs medication adjustment and monitoring in a safe and therapeutic environment. Pt is gravely disabled.
[2020-10-06 20:00] VITALS: BP 109/68
[2020-10-06] MEDS: mirtazapine 15mg tablet PO SCH (20:35)
--- NOTE | 2020-10-07 01:06 | NUR ---
Nursing Progress Note: Legal hold: Voluntary Report received from JOCELYNN Hankins with use of SBAR Why are they here: Pt was brought into ED on 09/11/20, reportedly catatonic by . She was unable to speak or move. reports she was taken off lithium 41 days ago and since then has been going in and out of catatonia. She received her 2nd ECT on 09/10 and was reportedly doing okay after, but on 09/11 after a nap she was unable to speak or move, and was brought into [facility]. Per record reported that she had a similar episode 3 years ago. She was receiving ativan 1mg IV Q6H in ER which was a continued order for [facility]. Pt is currently on sodium chloride solution Q10H, 100/ML/HR. Pt has Right wrist IV, 20 G. Pt has gomes catheter 16 [place], secured to left leg gravity draining clear, yellow. Per chart pt has been unable to urinate on her own and has a hx of hesitancy. IV fluids necessary due to inability to open mouth. Medical Hx per chart: Bipolar, anxiety, hypothyroidism, TBI Assessment What has happened this shift: The patient was seen in the community room for 1:1. She sits ridged in her chair and makes slow purposeful movements. She sits looking at the TV, but does not appear to be following. She speaks quite softly, but comprehensible if you get close enough to hear her. Still requires time to search for words when answering questions. She's using a FWW with assist, but perseverates on not having ambulation assist when she leaves here. S/I, H/I: Pt does not answer the questions. A/VH: Pt does not answer the questions. Sleep: See sleep assessment ADL's: Extensive assist of 2 for transfers and toileting, 1-2 person assist with repositioning/bed mobility and hygiene, 1 person assist with meals, Group attendance: N/A Were meds taken: Yes Any med S/E: None reported or observed Mental Status Exam Appearance: Frail, skinny, fatigued looking white haired woman dressed in hospital scrubs. Eye contact: Good Behavior: Depressed, fatigued, anxious Speech: Speaks very lightly, must get close to understand. Mood: Depressed Affect: Flat Thought process: YARELIS Thought Content: YARELIS, answers direct questions but otherwise does not provide spontaneous conversation Cognition: A/Ox2 Insight: Poor Judgment: Poor Interventions PRN's used: None Therapeutic interventions: 1:1 assessment, establishment of rapport, encouraged pt to express her thoughts and feelings, active listening, medication administration/education/monitoring, IV push medications, fall prevention, skin breakdown prevention, repositioning Q 2H in while in bed, encouragement to get up in w/c for meals, encouragement of food and fluids, LOS level of observation. Restraints/seclusion/emergency medication: NA Justification of Continued Inpatient Treatment: Pt goes in and out of catatonia and needs medication adjustment and monitoring in a safe and therapeutic environment. Pt is gravely disabled.
[2020-10-07] MEDS: levoTHYROXINE 25mcg tablet PO SCH (06:43)
[2020-10-07] MEDS: LORazepam 0.5 MG tablet PO SCH ×4 (06:43→21:15)
[2020-10-07 08:00] VITALS: BP 136/75
[2020-10-07] MEDS: lithium carbonate 150mg capsule PO SCH ×3 (08:10→17:16)
[2020-10-07] MEDS: docusate sod 100mg capsule PO SCH ×2 (08:10→21:15)
[2020-10-07] MEDS: fluvoxamine 25 MG tablet PO SCH ×2 (08:10→21:16)
--- NOTE | 2020-10-07 16:23 | NUR ---
Group Art Therapy continued: Patient was able to understand and engage in the entire activity today. * See the entire case note for the directives. Although she is very quiet, she was cognitive and able to follow through independently, with all the group activities. Patient was also responded with a happy affect, to be sharing her work in the group, with the assistance of this therapists' voice. (Reading out loud with her permission). Mirella Mathur MA Licensed Marriage, Family Therapist #[id number] [facility] Art Therapist Addendum: 10/07/20 at 1627 by Mirella SAEED Amended: Links added.
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
[2020-10-07 20:07] VITALS: BP 104/73
[2020-10-07] MEDS: mirtazapine 15mg tablet PO SCH (21:15)
--- NOTE | 2020-10-08 01:35 | NUR ---
Nursing Progress Note: Legal hold: Voluntary Report received from Dusty CABEZAS with use of SBAR Why are they here: Pt was brought into ED on 09/11/20, reportedly catatonic by . She was unable to speak or move. reports she was taken off lithium 41 days ago and since then has been going in and out of catatonia. She received her 2nd ECT on 09/10 and was reportedly doing okay after, but on 09/11 after a nap she was unable to speak or move, and was brought into [facility]. Per record reported that she had a similar episode 3 years ago. She was receiving ativan 1mg IV Q6H in ER which was a continued order for [facility]. Pt is currently on sodium chloride solution Q10H, 100/ML/HR. Pt has Right wrist IV, 20 G. Pt has gomes catheter 16 armenian, secured to left leg gravity draining clear, yellow. Per chart pt has been unable to urinate on her own and has a hx of hesitancy. IV fluids necessary due to inability to open mouth. Medical Hx per chart: Bipolar, anxiety, hypothyroidism, TBI Assessment What has happened this shift: Pt was in the community room at change of shift watching TV. Pt able to speak and answer in a soft voice, but is louder than she has been. Pt requires assistance x2 with toileting and requests to get up to use the commode. She is medication compliant. Her movements are slightly more fluid and she makes good eye contact. S/I, H/I: denies A/VH: denies Sleep: see sleep assessment ADL's: assist of 2 for transfers and toileting, 1-2 person assist with repositioning/bed mobility and hygiene Group attendance: NA Were meds taken: Yes Any med S/E: none reported, none observed Mental Status Exam Appearance: Frail, fatigued looking white haired woman dressed in hospital scrubs. Eye contact: Good Behavior: Slow moving and speaking but with some improvement Speech: soft, slow Mood: Appears depressed Affect: Flat Thought process:YARELIS Thought Content: circumstantial Cognition: A/O X 2 Insight: fair Judgment: fair Interventions PRN's used: None Therapeutic interventions: 1:1 assessment, establishment of rapport, encouraged pt to express her thoughts and feelings, active listening, medication administration/education/monitoring, , fall prevention, skin breakdown prevention, encouragement to get up in w/c for meals, encouragement of food and fluids Restraints/seclusion/emergency medication: NA Justification of Continued Inpatient Treatment: Pt goes in and out of catatonia and needs medication adjustment and monitoring in a safe and therapeutic environment. Pt is gravely disabled.
[2020-10-08] MEDS: levoTHYROXINE 25mcg tablet PO SCH (07:20)
[2020-10-08 07:34] VITALS: BP 112/66
[2020-10-08] MEDS: LORazepam 0.5 MG tablet PO SCH ×3 (08:13→20:46)
[2020-10-08] MEDS: lithium carbonate 150mg capsule PO SCH ×3 (08:13→20:47)
[2020-10-08] MEDS: docusate sod 100mg capsule PO SCH ×2 (08:13→20:44)
[2020-10-08] MEDS: fluvoxamine 25 MG tablet PO SCH ×2 (08:14→20:46)
[2020-10-08 08:55] LABS: ALBUMIN 3.5 G/DL (3.4-5.0); ANION GAP 9 (8-16); BLOOD UREA NITROGEN 14 MG/DL (7-18); BUN/CREATININE RATIO 12.7 (6.6-38.0); CALCIUM 10.1 MG/DL (8.5-10.1); CHLORIDE 109 MMOL/L (99-107); GLUCOSE 103 MG/DL (70-104); POTASSIUM 3.8 MMOL/L (3.5-5.1); SODIUM 145 MMOL/L (135-145); TOTAL CARBON DIOXIDE 26.6 MMOL/L (24-32); eGFR 50 ML/MIN
--- NOTE | 2020-10-08 12:55 | NUR ---
Called Nano[facility] , Bartolo (ph# [phone]) to discuss discharge plan. He reported he has not had a chance to follow up on resources he was provided the other day for in home care, "I'm swamped at work, I don't have time right now". He reported he is not comfortable with Nano returning home, "I need to see better progress...she needs to be able to go to the bathroom by herself and walk". He was somewhat irritable with leader writer and stated we need to call the insurance to ensure they continue to pay for her stay here. Asked if he can come in again to visit her and the soonest he can visit is on [place]. [facility] [employer] will ask the Director if he can visit again to see progress. scheduled her follow up appt with Dr. Uriostegui on 11/04/20 at 9:30 AM. Plan: Director [employer] will call Chapo back regarding if he can visit again. MARCELLO Ayers
[2020-10-08] MEDS ORDERED: LORazepam 0.5 MG tablet PO PRN (15:10)
--- NOTE | 2020-10-08 16:32 | NUR ---
NURSING PROGRESS NOTE Legal hold: Voluntary. Report received from RN with use of SBAR: JOCELYNN Bettencourt Why are they here: Pt was brought into ED on 09/11/20, reportedly catatonic by . She was unable to speak or move. reports she was taken off lithium 41 days ago and since then has been going in and out of catatonia. She received her 2nd ECT on 09/10 and was reportedly doing okay after, but on 09/11 after a nap she was unable to speak or move, and was brought into [facility]. Per record reported that she had a similar episode 3 years ago. She was receiving Ativan 1mg IV Q6H in ER which was a continued order for [facility]. Pt is currently on sodium chloride solution Q10H, 100/ML/HR. Pt has Right wrist IV, 20 G. Pt has gomes catheter 16 [place] tim[place], secured to left leg gravity draining clear, yellow. Per chart pt has been unable to urinate on her own and has a hx of hesitancy. IV fluids necessary due to inability to open mouth. Medical Hx per chart: Bipolar, anxiety, hypothyroidism, TBI Assessment: What has happened this shift: Received patient awake at shift change. Pt is laying in semi-fowlers position, no distress noted. Pt reports not sleeping well r/t "someone in [place] screaming." Pt appears to be tired and needed a little more assist to walk to bathroom. Pt is taken to breakfast in wheelchair and ambulated back after breakfast to rest. Pt presents as fatigued and anxious. Pt was administered her scheduled 0.5mg Ativan which appeared to help. Pt returned to community room for lunch and remained for most of the day. Pt attended group. Encouraged fluids throughout the day. [place] level 0.8 (10/08) S/I, H/I: Denies both. A/VH: Denies both. Sleep: 6.75 hours per NOC sleep assessment. No naps today. ADL's: Patient requires assistance to ambulate to community room and to bathroom. Getting stronger. Group attendance: Yes Were meds taken: Yes, without hesitation. Any med S/E: None reported or observed. Mental Status Exam Appearance: Well groomed in green scrubs, hair pulled back into a ponytail. Eye contact: Good Behavior: Cooperative, fearful of some ADL's, willing to push herself. Speech: Soft. Pt will speak louder if asked. Spontaneous Mood: Depressed, slightly anxious Affect: Blunted, with some brightening. Thought process: Linear. Thought Content: Situational. Cognition: A&Ox4 Insight: Fair Judgment: Fair Interventions PRN's used: None Therapeutic interventions: 1:1 assessment, establishment of rapport, encouraged pt to express her thoughts and feelings, active listening, medication administration/education/monitoring, fall prevention, skin breakdown prevention, repositioning Q 2H in while in bed, encouragement to get up for meals, encouragement of food and fluids, encouragement to ambulate with assist, LOS level of observation. Restraints/seclusion/emergency medication: NA Justification of Continued Inpatient Treatment: Pt's LOC and function fluctuates, she needs medication adjustment and monitoring in a safe and therapeutic environment. Pt is gravely disabled.
[2020-10-08 20:00] VITALS: BP 104/59
[2020-10-08] MEDS: mirtazapine 15mg tablet PO SCH (20:45)
--- NOTE | 2020-10-09 00:02 | NUR ---
NURSING PROGRESS NOTE Legal hold: Voluntary. Report received from RN with use of SBAR: JOCELYNN Montano Why are they here: Pt was brought into ED on 09/11/20, reportedly catatonic by . She was unable to speak or move. reports she was taken off lithium 41 days ago and since then has been going in and out of catatonia. She received her 2nd ECT on 09/10 and was reportedly doing okay after, but on 09/11 after a nap she was unable to speak or move, and was brought into [facility]. Per record reported that she had a similar episode 3 years ago. She was receiving Ativan 1mg IV Q6H in ER which was a continued order for [facility]. Pt is currently on sodium chloride solution Q10H, 100/ML/HR. Pt has Right wrist IV, 20 G. Pt has gomes catheter 16 greenlandic, secured to left leg gravity draining clear, yellow. Per chart pt has been unable to urinate on her own and has a hx of hesitancy. IV fluids necessary due to inability to open mouth. Medical Hx per chart: Bipolar, anxiety, hypothyroidism, TBI Assessment: What has happened this shift: Pt was in group room at shift change then was assisted back to her room toileted then got in bed. Pt was more talkative this shift able to make needs known. she was med compliant and went to sleep. [place] level 0.8 (10/08) S/I, H/I: Denies both. A/VH: Denies both. Sleep: 6.75 hours per NOC sleep assessment. No naps today. ADL's: Patient requires assistance to ambulate to community room and to bathroom. Getting stronger. Group attendance: Yes Were meds taken: Yes, without hesitation. Any med S/E: None reported or observed. Mental Status Exam Appearance: Well groomed in green scrubs, hair pulled back into a ponytail. Eye contact: Good Behavior: Cooperative, fearful of some ADL's, willing to push herself. Speech: Soft. Pt will speak louder if asked. Spontaneous Mood: Depressed, slightly anxious Affect: Blunted, with some brightening. Thought process: Linear. Thought Content: Situational. Cognition: A&Ox4 Insight: Fair Judgment: Fair Interventions PRN's used: None Therapeutic interventions: 1:1 assessment, establishment of rapport, encouraged pt to express her thoughts and feelings, active listening, medication administration/education/monitoring, fall prevention, skin breakdown prevention, repositioning Q 2H in while in bed, encouragement to get up for meals, encouragement of food and fluids, encouragement to ambulate with assist, LOS level of observation. Restraints/seclusion/emergency medication: NA Justification of Continued Inpatient Treatment: Pt's LOC and function fluctuates, she needs medication adjustment and monitoring in a safe and therapeutic environment. Pt is gravely disabled.
[2020-10-09 07:48] VITALS: BP 131/82
[2020-10-09] MEDS: LORazepam 0.5 MG tablet PO SCH ×3 (08:14→20:14)
[2020-10-09] MEDS: docusate sod 100mg capsule PO SCH ×2 (08:14→20:15)
[2020-10-09] MEDS: levoTHYROXINE 25mcg tablet PO SCH (08:14)
[2020-10-09] MEDS: fluvoxamine 25 MG tablet PO SCH ×2 (08:15→20:14)
[2020-10-09] MEDS: lithium carbonate 150mg capsule PO SCH ×3 (08:15→20:15)
--- NOTE | 2020-10-09 16:42 | NUR ---
NURSING PROGRESS NOTE Legal hold: Voluntary. Report received from RN with use of SBAR Why are they here: Pt was brought into ED on 09/11/20, reportedly catatonic by . She was unable to speak or move. reports she was taken off lithium 41 days ago and since then has been going in and out of catatonia. She received her 2nd ECT on 09/10 and was reportedly doing okay after, but on 09/11 after a nap she was unable to speak or move, and was brought into [facility]. Per record reported that she had a similar episode 3 years ago. She was receiving ativan 1mg IV Q6H in ER which was a continued order for [facility]. Pt is currently on sodium chloride solution Q10H, 100/ML/HR. Pt has Right wrist IV, 20 G. Pt has gomes catheter 16 lux[place]bour[place], secured to left leg gravity draining clear, yellow. Per chart pt has been unable to urinate on her own and has a hx of hesitancy. IV fluids necessary due to inability to open mouth. Medical Hx per chart: Bipolar, anxiety, hypothyroidism, TBI Assessment: What has happened this shift: Received Pt in bed resting w/o distress at beginning of shift. Pt cooperative with vitals and was out of bed with assistance and ambulated with assistance to community room for breakfast. Pt took AM meds without issue. Pt appears fearful of making positive steps forward because others will then expect her to do more for herself. She walks well with minor assistance and eating independently. Also is fearful of going home as works. Pt taking meds with less hesitation and speaking clearly yet softly. Overall she is anxious and depressed but functioning better. S/I, H/I: Denies A/VH: Denies.. Sleep: napped ADL's: Patient assisted into and out of bed, commode used at bedside. Group attendance: NA Were meds taken: Yes Any med S/E: None noted or observed. Mental Status Exam Appearance: Well groomed in green scrubs, hair fixed Eye contact: Good Behavior: cooperative Speech: speaking louder and clearer today Mood: Depressed Affect: Blunted Thought process: circumstantial Thought Content: About physical abilities Cognition: Alert Insight: fair Judgment: fair Interventions PRN's used: None Therapeutic interventions: 1:1 assessment, establishment of rapport, encouraged pt to express her thoughts and feelings, active listening, medication administration/education/monitoring, fall prevention, skin breakdown prevention, repositioning Q 2H in while in bed, encouragement to get up for meals, encouragement of food and fluids, encouragement to ambulate with assist. Restraints/seclusion/emergency medication: NA Justification of Continued Inpatient Treatment: Pt's LOC and function fluctuates, she needs medication adjustment and monitoring in a safe and therapeutic environment. Pt is gravely disabled.
[2020-10-09 19:00] VITALS: BP 109/68
[2020-10-09] MEDS: mirtazapine 15mg tablet PO SCH (20:14)
--- NOTE | 2020-10-09 23:38 | NUR ---
NURSING PROGRESS NOTE Legal hold: Voluntary. Report received from RN with use of SBAR Why are they here: Pt was brought into ED on 09/11/20, reportedly catatonic by . She was unable to speak or move. reports she was taken off lithium 41 days ago and since then has been going in and out of catatonia. She received her 2nd ECT on 09/10 and was reportedly doing okay after, but on 09/11 after a nap she was unable to speak or move, and was brought into [facility]. Per record reported that she had a similar episode 3 years ago. She was receiving ativan 1mg IV Q6H in ER which was a continued order for [facility]. Pt is currently on sodium chloride solution Q10H, 100/ML/HR. Pt has Right wrist IV, 20 G. Pt has gomes catheter 16 guinean, secured to left leg gravity draining clear, yellow. Per chart pt has been unable to urinate on her own and has a hx of hesitancy. IV fluids necessary due to inability to open mouth. Medical Hx per chart: Bipolar, anxiety, hypothyroidism, TBI Assessment: What has happened this shift: Received Pt awake in bed resting w/o distress at beginning of shift. Pt able to express needs and was cooperative. Patient took meds with out incident and went to bed. S/I, H/I: Denies A/VH: Denies.. Sleep: napped ADL's: Patient assisted into and out of bed, commode used at bedside. Group attendance: NA Were meds taken: Yes Any med S/E: None noted or observed. Mental Status Exam Appearance: Well groomed in green scrubs, hair fixed Eye contact: Good Behavior: cooperative Speech: speaking louder and clearer today Mood: Depressed Affect: Blunted Thought process: circumstantial Thought Content: About physical abilities Cognition: Alert Insight: fair Judgment: fair Interventions PRN's used: None Therapeutic interventions: 1:1 assessment, establishment of rapport, encouraged pt to express her thoughts and feelings, active listening, medication administration/education/monitoring, fall prevention, skin breakdown prevention, repositioning Q 2H in while in bed, encouragement to get up for meals, encouragement of food and fluids, encouragement to ambulate with assist. Restraints/seclusion/emergency medication: NA Justification of Continued Inpatient Treatment: Pt's LOC and function fluctuates, she needs medication adjustment and monitoring in a safe and therapeutic environment. Pt is gravely disabled.
[2020-10-10] MEDS: fluvoxamine 25 MG tablet PO SCH ×2 (08:13→20:44)
[2020-10-10] MEDS: lithium carbonate 150mg capsule PO SCH ×3 (08:13→20:39)
[2020-10-10] MEDS: LORazepam 0.5 MG tablet PO SCH ×3 (08:13→20:39)
[2020-10-10] MEDS: docusate sod 100mg capsule PO SCH ×2 (08:13→20:39)
[2020-10-10] MEDS: levoTHYROXINE 25mcg tablet PO SCH (08:13)
[2020-10-10 08:41] VITALS: BP 131/78
--- NOTE | 2020-10-10 16:04 | NUR ---
NURSING PROGRESS NOTE Legal hold: Voluntary. Report received from RN Zoie Slaughter with use of SBAR Why are they here: Pt was brought into ED on 09/11/20, reportedly catatonic by . She was unable to speak or move. reports she was taken off lithium 41 days ago and since then has been going in and out of catatonia. She received her 2nd ECT on 09/10 and was reportedly doing okay after, but on 09/11 after a nap she was unable to speak or move, and was brought into [facility]. Per record reported that she had a similar episode 3 years ago. She was receiving ativan 1mg IV Q6H in ER which was a continued order for [facility]. Pt is currently on sodium chloride solution Q10H, 100/ML/HR. Pt has Right wrist IV, 20 G. Pt has gomes catheter 16 al[place]ian, secured to left leg gravity draining clear, yellow. Per chart pt has been unable to urinate on her own and has a hx of hesitancy. IV fluids necessary due to inability to open mouth. Medical Hx per chart: Bipolar, anxiety, hypothyroidism, TBI Assessment: What has happened this shift: Pt ambulated to the dining room with FWW and assist of 1 person for meals. Pt requires moderate assist of one for transfers and bed mobility. Pt is able to take pills whole at this time. Pt is speaking in full, clear, very soft volume sentences. Pt admits to feeling "a little" depressed. Pt denies SI/HI/AH/VH. Pt can be demanding of staff at times if her pillows are not positioned just right or her needs are not anticipated in the manner that she likes. Pt is able to communicate her needs. Pt stated that she was driving and going to the gym 6 months ago but her psychiatrist took her off her [place] and "I flat lined." Pt reports that her is a natural foods specialist and that her sister was staying with them for 6 months to help her but is no longer able to do so. Pt believes she is improving since being restarted on [place]. Pt is reluctant to take her scheduled Ativan at times stating that, "he told me I don't have to take it if I don't want to." Pt did take routine Ativan today. S/I, H/I: Pt denies. A/VH: Pt denies. Sleep: Pt slept 7.75 hours last night per noc shift report, pt naps after meals. ADL's: Pt requiring 1 person assist with transfers, bed mobility, toileting, and ambulation with FWW. Group attendance: No groups today. Were meds taken: Yes Any med S/E: Pt complained that Ativan makes her drowsy. Mental Status Exam Appearance: Clean neat older white-haired woman with hair pulled back in ponytail. Eye contact: Good Behavior: Calm, mostly isolative to self and room, up for meals, demanding at times. Speech: Clear, soft, audible. Mood: Depressed Affect: Blunted Thought process: Organized, perseverative at times. Thought Content: Her pillows are uncomfortable. Cognition: A/O X 4 Insight: fair Judgment: fair Interventions PRN's used: None Therapeutic interventions: 1:1 assessment, therapeutic conversation, active listening, medication administration/education/monitoring, fall prevention, skin breakdown prevention, encouragement to get up for meals, encouragement of increased autonomy of ADLs, Q 15 minute safety checks. Restraints/seclusion/emergency medication: NA Justification of Continued Inpatient Treatment: Pt's LOC and function fluctuates, she needs medication adjustment and monitoring in a safe and therapeutic environment. Pt is gravely disabled.
[2020-10-10 19:00] VITALS: BP 124/73
[2020-10-10] MEDS: mirtazapine 15mg tablet PO SCH (20:40)
--- NOTE | 2020-10-11 00:13 | NUR ---
NURSING PROGRESS NOTE Legal hold: Voluntary. Report received from JOCELYNN Shaw with use of SBAR Why are they here: Pt was brought into ED on 09/11/20, reportedly catatonic by . She was unable to speak or move. reports she was taken off lithium 41 days ago and since then has been going in and out of catatonia. She received her 2nd ECT on 09/10 and was reportedly doing okay after, but on 09/11 after a nap she was unable to speak or move, and was brought into [facility]. Per record reported that she had a similar episode 3 years ago. She was receiving ativan 1mg IV Q6H in ER which was a continued order for [facility]. Pt is currently on sodium chloride solution Q10H, 100/ML/HR. Pt has Right wrist IV, 20 G. Pt has gomes catheter 16 bahamian, secured to left leg gravity draining clear, yellow. Per chart pt has been unable to urinate on her own and has a hx of hesitancy. IV fluids necessary due to inability to open mouth. Medical Hx per chart: Bipolar, anxiety, hypothyroidism, TBI Assessment: What has happened this shift: Pt was [place] and lying in bed at shift change asked fo her head be raised. Pt was more talkative this shift and was med compliant asking what each med was. Pt sat up with assistance and took her meds with out distress. Pt said thank you and went to sleep. S/I, H/I: Pt denies. A/VH: Pt denies. Sleep: Pt slept 7.75 hours last night per noc shift report, pt naps after meals. ADL's: Pt requiring 1 person assist with transfers, bed mobility, toileting, and ambulation with FWW. Group attendance: No groups today. Were meds taken: Yes Any med S/E: Pt complained that Ativan makes her drowsy. Mental Status Exam Appearance: Clean neat older white-haired woman with hair pulled back in ponytail. Eye contact: Good Behavior: Calm, mostly isolative to self and room, up for meals, demanding at times. Speech: Clear, soft, audible. Mood: Depressed Affect: Blunted Thought process: Organized, perseverative at times. Thought Content: Her pillows are uncomfortable. Cognition: A/O X 4 Insight: fair Judgment: fair Interventions PRN's used: None Therapeutic interventions: 1:1 assessment, therapeutic conversation, active listening, medication administration/education/monitoring, fall prevention, skin breakdown prevention, encouragement to get up for meals, encouragement of increased autonomy of ADLs, Q 15 minute safety checks. Restraints/seclusion/emergency medication: NA Justification of Continued Inpatient Treatment: Pt's LOC and function fluctuates, she needs medication adjustment and monitoring in a safe and therapeutic environment. Pt is gravely disabled.
[2020-10-11 08:00] VITALS: BP 144/78
[2020-10-11] MEDS: lithium carbonate 150mg capsule PO SCH ×3 (08:06→20:56)
[2020-10-11] MEDS: LORazepam 0.5 MG tablet PO SCH ×3 (08:06→20:56)
[2020-10-11] MEDS: levoTHYROXINE 25mcg tablet PO SCH (08:07)
[2020-10-11] MEDS: fluvoxamine 25 MG tablet PO SCH ×2 (08:07→20:55)
[2020-10-11] MEDS: docusate sod 100mg capsule PO SCH ×2 (08:07→20:56)
--- NOTE | 2020-10-11 15:56 | NUR ---
NURSING PROGRESS NOTE Legal hold: Voluntary. Report received from RN Zoie Slaughter with use of SBAR Why are they here: Pt was brought into ED on 09/11/20, reportedly catatonic by . She was unable to speak or move. reports she was taken off lithium 41 days ago and since then has been going in and out of catatonia. She received her 2nd ECT on 09/10 and was reportedly doing okay after, but on 09/11 after a nap she was unable to speak or move, and was brought into [facility]. Per record reported that she had a similar episode 3 years ago. She was receiving ativan 1mg IV Q6H in ER which was a continued order for [facility]. Pt is currently on sodium chloride solution Q10H, 100/ML/HR. Pt has Right wrist IV, 20 G. Pt has gomes catheter 16 hebrew, secured to left leg gravity draining clear, yellow. Per chart pt has been unable to urinate on her own and has a hx of hesitancy. IV fluids necessary due to inability to open mouth. Medical Hx per chart: Bipolar, anxiety, hypothyroidism, TBI Assessment: What has happened this shift: Pt ambulates to dining room with FWW and assist of 1-2 people today. She requires assist of 2 for bed mobility. Pt makes frequent requests to have her pillow adjusted or the head and foot of her bed raised or lowered, she seems to be finding difficulty being comfortable in bed. Pt has been feeding herself at meals. Noted that mucous membranes were dry so encouraged fluids today. Pt is unable to reach her water pitcher while she is in bed. Asked other staff members to offer her sips of water each time they walk in the room. Pt reports that her depression is "a little less" today. Pt denies SI/AH/VH. Pt knew that she is at [facility] and today is "the day after Kylah." Pt does become a bit confused at times but is easily reoriented. S/I, H/I: Pt denies. A/VH: Pt denies. Sleep: Pt slept 6.75 hours last night per noc shift report, pt naps after meals. ADL's: Pt requiring 1 person assist with transfers, toileting, and ambulation with FWW, 2 person assist w/ bed mobility. Group attendance: No Were meds taken: Yes Any med S/E: None noted or reported Mental Status Exam Appearance: Clean neat older white-haired woman with hair pulled back in ponytail dressed in street clothes. Eye contact: Good Behavior: Calm, mostly isolative to self and room, up for meals, demanding at times; frequent requests to fix her pillows, had difficulty finding a comfortable position in bed. Speech: Clear, soft, audible. Mood: Depressed Affect: Blunted Thought process: Perseverative, fixates on small things like her pillows. Thought Content: Her pillows are uncomfortable, the bed is uncomfortable but she doesn't know why as it wasn't before. Cognition: A/O X 4, intermittent confusion, forgetful at times. Insight: fair Judgment: fair Interventions PRN's used: None Therapeutic interventions: 1:1 assessment, therapeutic conversation, active listening, medication administration/education/monitoring, fall prevention, skin breakdown prevention, encouragement to get up for meals, encouraged fluids, encouragement of increased autonomy in ADLs, Q 15 minute safety checks. Restraints/seclusion/emergency medication: NA Justification of Continued Inpatient Treatment: Pt's LOC and function fluctuates, she needs medication adjustment and monitoring in a safe and therapeutic environment. Pt is gravely disabled. She continues to require extensive assist of 1 to 2 people with ADLs. Addendum: 10/11/20 at 1700 by Kaylee Lowe RN (Lee) Pt worked with the patient today and feels that the pt has many s/sx of Parkinson's and may need evaluated by MD for new Dx. Pt is stiff and falls backwards stiffly, she has a shuffling gait, a mask-like affect, and bilateral hand tremors. PT recommends trying to qualify pt for rehab or going home with 24 hour care.
[2020-10-11 19:33] VITALS: BP 121/72
[2020-10-11] MEDS: mirtazapine 15mg tablet PO SCH (20:55)
--- NOTE | 2020-10-12 04:58 | NUR ---
NURSING PROGRESS NOTE Legal hold: VOL Voluntary status Report received from JOCELYNN Shaw with use of SBAR Why are they here: Pt was brought into ED on 09/11/20, reportedly catatonic by . She was unable to speak or move. reports she was taken off lithium 41 days ago and since then has been going in and out of catatonia. She received her 2nd ECT on 09/10 and was reportedly doing okay after, but on 09/11 after a nap she was unable to speak or move, and was brought into [facility]. Per record reported that she had a similar episode 3 years ago. She was receiving ativan 1mg IV Q6H in ER which was a continued order for [facility]. Pt is currently on sodium chloride solution Q10H, 100/ML/HR. Pt has Right wrist IV, 20 G. Pt has gomes catheter 16 macedonian, secured to left leg gravity draining clear, yellow. Per chart pt has been unable to urinate on her own and has a hx of hesitancy. IV fluids necessary due to inability to open mouth. Medical Hx per chart: Bipolar, anxiety, hypothyroidism, TBI Assessment: What has happened this shift: Patient observed sitting in the community room at the beginning of shift. Pleasant and cooperative with care; compliant with medication. Patient denies SI, HI, A/VH. She does not appear to be responding to IS and no delusional thought content expressed this shift. Patient did not participate in HS snack this shift. She is observed sleeping and does not appear to be having difficulty. S/I, H/I: Denies A/VH: Denies Sleep: Refer to sleep assessment ADL's: Requires staff assist Group attendance: NA Were meds taken: Yes Any med S/E: None observed or reported Mental Status Exam Appearance: Neat, clean and appropriate Eye contact: Good Behavior: Pleasant and cooperative Speech: Clear, soft, audible Mood: Euphoric Affect: Blunted Thought process: Linear Thought Content: Meeting her needs Cognition: A/O X 4 Insight: Fair Judgment: Fair Interventions PRN's used: None Therapeutic interventions: 1:1 assessment, therapeutic conversation, active listening, medication administration/education/monitoring, fall prevention, skin breakdown prevention, encouragement to get up for meals, encouraged fluids, encouragement of increased autonomy in ADLs, Q 15 minute safety checks. Restraints/seclusion/emergency medication: NA Justification of Continued Inpatient Treatment: Pt's LOC and function fluctuates, she needs medication adjustment and monitoring in a safe and therapeutic environment. Pt is gravely disabled. She continues to require extensive assist of 1 to 2 people with ADLs.
[2020-10-12] MEDS: levoTHYROXINE 25mcg tablet PO SCH (07:35)
[2020-10-12] MEDS: lithium carbonate 150mg capsule PO SCH ×3 (07:52→20:43)
[2020-10-12] MEDS: docusate sod 100mg capsule PO SCH ×2 (07:52→20:43)
[2020-10-12] MEDS: LORazepam 0.5 MG tablet PO SCH ×3 (07:52→20:44)
[2020-10-12] MEDS: fluvoxamine 25 MG tablet PO SCH ×2 (07:53→20:43)
[2020-10-12 07:58] VITALS: BP 126/71
--- NOTE | 2020-10-12 15:30 | NUR ---
NURSING PROGRESS NOTE Legal hold: Voluntary. Report received from RN Zoie Slaughter with use of SBAR Why are they here: Pt was brought into ED on 09/11/20, reportedly catatonic by . She was unable to speak or move. reports she was taken off lithium 41 days ago and since then has been going in and out of catatonia. She received her 2nd ECT on 09/10 and was reportedly doing okay after, but on 09/11 after a nap she was unable to speak or move, and was brought into [facility]. Per record reported that she had a similar episode 3 years ago. She was receiving ativan 1mg IV Q6H in ER which was a continued order for [facility]. Pt is currently on sodium chloride solution Q10H, 100/ML/HR. Pt has Right wrist IV, 20 G. Pt has gomes catheter 16 bengali, secured to left leg gravity draining clear, yellow. Per chart pt has been unable to urinate on her own and has a hx of hesitancy. IV fluids necessary due to inability to open mouth. Medical Hx per chart: Bipolar, anxiety, hypothyroidism, TBI Assessment: What has happened this shift: Pt had a shower and linen change today. Pt continues to require 1-2 person moderate to extensive assist with ADLs though is able to feed herself. Pt continues to feel depressed and asks, "what do I have to do to get out of here?" Pt face has broken out; red areas/macules. Pt states that this has happened because she hasn't been taking care of her facial skin. Pt states that this is not unusual if she does not wash her face daily. No rash noted on other areas of her body. Encouraged pt to request to be set up to wash her face morning and evening. Pt is ambulated with gait belt, FWW and assist of 1-2 to and from dining room for meals. Gait continues to be shuffling, slow, and impaired. S/I, H/I: Pt denies. A/VH: Pt denies. Sleep: Pt slept 8.75 hours last night per noc shift report, pt naps after meals. ADL's: Pt requires 1-2 person assist with transfers, toileting, bathing, personal hygiene,ambulation with FWW and gait belt. She can feed herself with set up and supervision. Group attendance: No Were meds taken: Yes Any med S/E: None noted or reported Mental Status Exam Appearance: Clean neat older white-haired woman with hair pulled back in ponytail dressed in street clothes. Eye contact: Good Behavior: Calm, mostly isolative to self and room, up for meals, frequent requests to adjust her pillows. Speech: Clear, soft, audible. Mood: Depressed Affect: Flat, mask-like Thought process: Perseverative, fixates on small things like her pillows. Thought Content: Perseverates on her pillows, wants to know what she has to do to get out of here. Cognition: A/O X 4, intermittent confusion, forgetful at times. Insight: fair Judgment: fair Interventions PRN's used: None Therapeutic interventions: 1:1 assessment, therapeutic conversation, active listening, medication administration/education/monitoring, fall prevention, skin breakdown prevention, frequent repositioning in bed,encouragement to get up for meals, encouraged fluids, encouragement of increased autonomy in ADLs, assistance with ambulation to and from dining room for meals, 1-2 person extensive assist with ADLs, Q 15 minute safety checks. Restraints/seclusion/emergency medication: NA Justification of Continued Inpatient Treatment: Pt's LOC and function fluctuates, she needs medication adjustment and monitoring in a safe and therapeutic environment. Pt is gravely disabled. She continues to require extensive assist of 1 to 2 people with ADLs.
[2020-10-12 20:25] VITALS: BP 105/64
[2020-10-12] MEDS: mirtazapine 15mg tablet PO SCH (20:43)
--- NOTE | 2020-10-12 23:53 | NUR ---
NURSING PROGRESS NOTE Legal hold: Voluntary. Report received from JOCELYNN Shaw with use of SBAR Why are they here: Pt was brought into ED on 09/11/20, reportedly catatonic by . She was unable to speak or move. reports she was taken off lithium 41 days ago and since then has been going in and out of catatonia. She received her 2nd ECT on 09/10 and was reportedly doing okay after, but on 09/11 after a nap she was unable to speak or move, and was brought into [facility]. Per record reported that she had a similar episode 3 years ago. She was receiving ativan 1mg IV Q6H in ER which was a continued order for [facility]. Pt is currently on sodium chloride solution Q10H, 100/ML/HR. Pt has Right wrist IV, 20 G. Pt has gomes catheter 16 palauan, secured to left leg gravity draining clear, yellow. Per chart pt has been unable to urinate on her own and has a hx of hesitancy. IV fluids necessary due to inability to open mouth. Medical Hx per chart: Bipolar, anxiety, hypothyroidism, TBI Assessment: What has happened this shift: Pt was in bed napping at shift change.She had to be awakened for medications and was compliant. Pt was less talketive this shift and her speech was almost a whisper.Pt was unable to provide any responce to her well being. S/I, H/I: Pt denies. A/VH: Pt denies. Sleep: Pt slept 8.75 hours last night per noc shift report, pt naps after meals. ADL's: Pt requires 1-2 person assist with transfers, toileting, bathing, personal hygiene,ambulation with FWW and gait belt. She can feed herself with set up and supervision. Group attendance: No Were meds taken: Yes Any med S/E: None noted or reported Mental Status Exam Appearance: Clean neat older white-haired woman with hair pulled back in ponytail dressed in street clothes. Eye contact: Good Behavior: Calm, mostly isolative to self and room, up for meals, frequent requests to adjust her pillows. Speech: Clear, soft, audible. Mood: Depressed Affect: Flat, mask-like Thought process: Perseverative, fixates on small things like her pillows. Thought Content: Perseverates on her pillows, wants to know what she has to do to get out of here. Cognition: A/O X 4, intermittent confusion, forgetful at times. Insight: fair Judgment: fair Interventions PRN's used: None Therapeutic interventions: 1:1 assessment, therapeutic conversation, active listening, medication administration/education/monitoring, fall prevention, skin breakdown prevention, frequent repositioning in bed,encouragement to get up for meals, encouraged fluids, encouragement of increased autonomy in ADLs, assistance with ambulation to and from dining room for meals, 1-2 person extensive assist with ADLs, Q 15 minute safety checks. Restraints/seclusion/emergency medication: NA Justification of Continued Inpatient Treatment: Pt's LOC and function fluctuates, she needs medication adjustment and monitoring in a safe and therapeutic environment. Pt is gravely disabled. She continues to require extensive assist of 1 to 2 people with ADLs.
[2020-10-13] MEDS: docusate sod 100mg capsule PO SCH ×2 (08:33→20:20)
[2020-10-13] MEDS: levoTHYROXINE 25mcg tablet PO SCH (08:34)
[2020-10-13] MEDS: fluvoxamine 25 MG tablet PO SCH ×2 (08:34→20:22)
[2020-10-13] MEDS: lithium carbonate 150mg capsule PO SCH ×3 (08:34→20:22)
[2020-10-13] MEDS: LORazepam 0.5 MG tablet PO SCH ×3 (08:34→20:22)
[2020-10-13 08:35] VITALS: BP 136/80
--- NOTE | 2020-10-13 13:59 | NUR ---
Reassessment: Pt PO fluctuates though overall ~75% avg meals past 6 days meeting needs on vegetarian/MM5 diet per [facility] recs. LBM 10/11. No nutrition concerns at this time. Will continue to monitor. Rec: 1. continue minced and moist grind all vegetarian diet with thin liquids per ST recs 2. MVI supplementation on vegetarian diet 3. routine bowel care 4. weekly wts Addendum: 10/13/20 at [address] Amended: Links added.
--- NOTE | 2020-10-13 16:26 | NUR ---
NURSING PROGRESS NOTE Legal hold: Voluntary. Report received from RN with use of SBAR Why are they here: Pt was brought into ED on 09/11/20, reportedly catatonic by . She was unable to speak or move. reports she was taken off lithium 41 days ago and since then has been going in and out of catatonia. She received her 2nd ECT on 09/10 and was reportedly doing okay after, but on 09/11 after a nap she was unable to speak or move, and was brought into [facility]. Per record reported that she had a similar episode 3 years ago. She was receiving ativan 1mg IV Q6H in ER which was a continued order for [facility]. Pt is currently on sodium chloride solution Q10H, 100/ML/HR. Pt has Right wrist IV, 20 G. Pt has gomes catheter 16 hong konger, secured to left leg gravity draining clear, yellow. Per chart pt has been unable to urinate on her own and has a hx of hesitancy. IV fluids necessary due to inability to open mouth. Medical Hx per chart: Bipolar, anxiety, hypothyroidism, TBI Assessment: What has happened this shift: Received Pt in bed resting w/o distress at beginning of shift. Pt cooperative with vitals and was out of bed with assistance and ambulated with assistance to community room for breakfast. Pt took AM meds without issue. Spoke with Pts in the morning and gave update and Pt talked with him as well. Pt sat in hallway and watched people for a while in the morning and ambulated to bathroom multiple times and to meals with assistance. Pt is fearful of not being able to use her hands and legs well and how she will be able to go home. Pt has difficulty making decisions and needs to be prompted. She is eating independently and continues to speak clearly yet softly. Overall she is anxious and depressed yet functioning with more confidence that last week. S/I, H/I: Denies A/VH: Denies.. Sleep: napped ADL's: Patient assisted into and out of bed, commode used at bedside. Group attendance: NA Were meds taken: Yes Any med S/E: None noted or observed. Mental Status Exam Appearance: Well groomed in green scrubs, hair fixed Eye contact: Good Behavior: cooperative Speech: speaking louder and clearer today Mood: Depressed Affect: Blunted Thought process: circumstantial Thought Content: About physical abilities Cognition: Alert Insight: fair Judgment: fair Interventions PRN's used: None Therapeutic interventions: 1:1 assessment, establishment of rapport, encouraged pt to express her thoughts and feelings, active listening, medication administration/education/monitoring, fall prevention, skin breakdown prevention, repositioning Q 2H in while in bed, encouragement to get up for meals, encouragement of food and fluids, encouragement to ambulate with assist. Restraints/seclusion/emergency medication: NA Justification of Continued Inpatient Treatment: Pt's LOC and function fluctuates, she needs medication adjustment and monitoring in a safe and therapeutic environment. Pt is gravely disabled.
[2020-10-13] MEDS: mirtazapine 15mg tablet PO SCH (20:23)
[2020-10-13 20:53] VITALS: BP 112/74
[2020-10-13 20:54] VITALS: BP 112/74
--- NOTE | 2020-10-14 00:31 | NUR ---
NURSING PROGRESS NOTE Legal hold: Voluntary. Report received from RN with use of SBAR Why are they here: Pt was brought into ED on 09/11/20, reportedly catatonic by . She was unable to speak or move. reports she was taken off lithium 41 days ago and since then has been going in and out of catatonia. She received her 2nd ECT on 09/10 and was reportedly doing okay after, but on 09/11 after a nap she was unable to speak or move, and was brought into [facility]. Per record reported that she had a similar episode 3 years ago. She was receiving ativan 1mg IV Q6H in ER which was a continued order for [facility]. Pt is currently on sodium chloride solution Q10H, 100/ML/HR. Pt has Right wrist IV, 20 G. Pt has gomes catheter 16 german, secured to left leg gravity draining clear, yellow. Per chart pt has been unable to urinate on her own and has a hx of hesitancy. IV fluids necessary due to inability to open mouth. Medical Hx per chart: Bipolar, anxiety, hypothyroidism, TBI Assessment: What has happened this shift: Received Pt in bed resting w/o distress at beginning of shift. Pt cooperative with vitals and medication. Pt remained in bed and went to sleep . S/I, H/I: Denies A/VH: Denies.. Sleep: napped ADL's: Patient assisted into and out of bed, commode used at bedside. Group attendance: NA Were meds taken: Yes Any med S/E: None noted or observed. Mental Status Exam Appearance: Well groomed in green scrubs, hair fixed Eye contact: Good Behavior: cooperative Speech: speaking louder and clearer today Mood: Depressed Affect: Blunted Thought process: circumstantial Thought Content: About physical abilities Cognition: Alert Insight: fair Judgment: fair Interventions PRN's used: None Therapeutic interventions: 1:1 assessment, establishment of rapport, encouraged pt to express her thoughts and feelings, active listening, medication administration/education/monitoring, fall prevention, skin breakdown prevention, repositioning Q 2H in while in bed, encouragement to get up for meals, encouragement of food and fluids, encouragement to ambulate with assist. Restraints/seclusion/emergency medication: NA Justification of Continued Inpatient Treatment: Pt's LOC and function fluctuates, she needs medication adjustment and monitoring in a safe and therapeutic environment. Pt is gravely disabled.
[2020-10-14 07:00] VITALS: BP 131/78
[2020-10-14] MEDS: docusate sod 100mg capsule PO SCH (07:54)
[2020-10-14] MEDS: levoTHYROXINE 25mcg tablet PO SCH (07:55)
[2020-10-14] MEDS: fluvoxamine 25 MG tablet PO SCH ×2 (07:58→20:28)
[2020-10-14] MEDS ORDERED: amantadine 100 MG capsule PO ONE (08:05)
[2020-10-14] MEDS: LORazepam 0.5 MG tablet PO SCH ×3 (08:44→20:29)
[2020-10-14] MEDS: lithium carbonate 150mg capsule PO SCH ×3 (08:44→20:28)
--- NOTE | 2020-10-14 13:40 | NUR ---
PHONE CALL W/ Called Nano's , Bartolo (ph# [phone]) to return his call. Apprised him that Dr Crain is completing Home Health referral. Answered his questions regarding what home health care is. He requested they coordinate with him directly. He requested a referral to physical therapy to a [facility] who works in [employer] somewhere. He also requested a referral to [facility]. He reported Nano had worked with [facility] in the past and he is willing to drive to [employer]. Bartolo stated that Nano is not walking if she is using a walker and she cannot come home using a walker. He then requested an Rx for a wheelchair "in case she needs it". He reported she has a walker at home. Oil Painter had asked Nano if she has a walker at home and she had said "no". Chapo reassured senior copywriter she has a walker at home and doesn't need it. He reported he is waiting for a call back from various agencies he has tried to call regarding assistance in the home. He also reported he is waiting to hear back from a rehab facility. Bartolo also requested Dr Crain call him on his cell (ph# [phone]). Oil Painter will pass along the request. MARCELLO Ayers
--- NOTE | 2020-10-14 14:51 | NUR ---
At '[facility] request [facility] (ph# [phone][facility] and spoke to Vy with admissions. Discussed Nano's case and she reported administrative underwriter could fax over a referral. She requested H&P, progress notes, PT notes, and med list. Faxed requested documents to fax# [phone]. Lan Engineer will follow up tomorrow regarding referral. MARCELLO Ayers
--- NOTE | 2020-10-14 16:59 | NUR ---
NURSING PROGRESS NOTE Legal hold: Voluntary. Report received from JOCELYNN Bettencourt with use of SBAR Why are they here: Pt was brought into ED on 09/11/20, reportedly catatonic by . She was unable to speak or move. reports she was taken off lithium 41 days ago and since then has been going in and out of catatonia. She received her 2nd ECT on 09/10 and was reportedly doing okay after, but on 09/11 after a nap she was unable to speak or move, and was brought into [facility]. Per record reported that she had a similar episode 3 years ago. She was receiving ativan 1mg IV Q6H in ER which was a continued order for [facility]. Pt is currently on sodium chloride solution Q10H, 100/ML/HR. Pt has Right wrist IV, 20 G. Pt has gomes catheter 16 cook islander, secured to left leg gravity draining clear, yellow. Per chart pt has been unable to urinate on her own and has a hx of hesitancy. IV fluids necessary due to inability to open mouth. Medical Hx per chart: Bipolar, anxiety, hypothyroidism, TBI Assessment: What has happened this shift: Received pt sleeping in bed at shift change. Patient ambulates to the community room with assistance and walker. Patient up for periodic ambulation throughout shift. Walking with more confidence today. Patient reports depression 5/10. Having difficulty getting comfortable with pillows. Patient attends all meals in community room. S/I, H/I: Denies A/VH: Denies.. Sleep: napped ADL's: Patient assisted into and out of bed, commode used at bedside. Group attendance: NA Were meds taken: Yes Any med S/E: None noted or observed. Mental Status Exam Appearance: Well groomed in green scrubs, hair fixed Eye contact: Good Behavior: cooperative, ambulates with assistance and walker. Speech: Soft, WNL. Mood: Depressed Affect: Blunted Thought process: circumstantial Thought Content: About physical abilities Cognition: Alert Insight: fair Judgment: fair Interventions PRN's used: None Therapeutic interventions: 1:1 assessment, establishment of rapport, encouraged pt to express her thoughts and feelings, active listening, medication administration/education/monitoring, fall prevention, skin breakdown prevention, repositioning Q 2H in while in bed, encouragement to get up for meals, encouragement of food and fluids, encouragement to ambulate with assist. Restraints/seclusion/emergency medication: NA Justification of Continued Inpatient Treatment: Pt's LOC and function fluctuates, she needs medication adjustment and monitoring in a safe and therapeutic environment. Pt is gravely disa
[2020-10-14 20:26] VITALS: BP 114/72
[2020-10-14] MEDS: mirtazapine 15mg tablet PO SCH (20:28)
[2020-10-14] MEDS: amantadine 100 MG capsule PO SCH (20:28)
--- NOTE | 2020-10-14 23:00 | NUR ---
NURSING PROGRESS NOTE Legal hold: Voluntary. Report received from JOCELYNN Shaw with use of SBAR Why are they here: Pt was brought into ED on 09/11/20, reportedly catatonic by . She was unable to speak or move. reports she was taken off lithium 41 days ago and since then has been going in and out of catatonia. She received her 2nd ECT on 09/10 and was reportedly doing okay after, but on 09/11 after a nap she was unable to speak or move, and was brought into [facility]. Per record reported that she had a similar episode 3 years ago. She was receiving ativan 1mg IV Q6H in ER which was a continued order for [facility]. Pt is currently on sodium chloride solution Q10H, 100/ML/HR. Pt has Right wrist IV, 20 G. Pt has gomes catheter 16 sierra leonean, secured to left leg gravity draining clear, yellow. Per chart pt has been unable to urinate on her own and has a hx of hesitancy. IV fluids necessary due to inability to open mouth. Medical Hx per chart: Bipolar, anxiety, hypothyroidism, TBI Assessment: What has happened this shift: Pt was in group room at change of shift, walked to her room using fww and assistance from pct Chavez. Pt was assisted into bed. Pt continues to speak softly and has some thought blocking during conversation. Pt states she doesn't know when asked about her day. Pt does ask about her meds and is aware of what she takes and the amounts of her medications. She requests to have her pillows adjusted and thanks this selling underwriter. S/I, H/I: Denies A/VH: Denies Sleep: see sleep hours ADL's: Patient assisted into and out of bed, commode used at bedside. Group attendance: NA Were meds taken: Yes Any med S/E: None noted or observed. Mental Status Exam Appearance: Well groomed in green scrubs, hair fixed Eye contact: Good Behavior: cooperative, ambulates with assistance and walker. Speech: Soft, WNL. Mood: Depressed Affect: Blunted Thought process: circumstantial Thought Content: asking about adjusting pillows and mentions going home Cognition: Alert Insight: fair Judgment: fair Interventions PRN's used: None Therapeutic interventions: 1:1 assessment, establishment of rapport, encouraged pt to express her thoughts and feelings, active listening, medication administration/education/monitoring, fall prevention, skin breakdown prevention, repositioning Q 2H in while in bed, encouragement to get up for meals, encouragement of food and fluids, encouragement to ambulate with assist. Restraints/seclusion/emergency medication: NA Justification of Continued Inpatient Treatment: Pt's LOC and function fluctuates, she needs medication adjustment and monitoring in a safe and therapeutic environment. Pt is gravely disa
--- NOTE | 2020-10-15 07:55 | NUR ---
Re-faxed packet to [facility] as it did not go through yesterday. Automotive Engineering Teacher will follow up later today. MARCELLO Ayers
[2020-10-15] MEDS: levoTHYROXINE 25mcg tablet PO SCH (08:04)
[2020-10-15] MEDS: LORazepam 0.5 MG tablet PO SCH ×3 (08:04→20:34)
[2020-10-15] MEDS: lithium carbonate 150mg capsule PO SCH ×3 (08:04→20:34)
[2020-10-15] MEDS: amantadine 100 MG capsule PO SCH ×2 (08:04→20:34)
[2020-10-15] MEDS: fluvoxamine 25 MG tablet PO SCH ×2 (08:04→20:34)
[2020-10-15 08:24] VITALS: BP 156/91
--- NOTE | 2020-10-15 11:33 | NUR ---
Called [facility] to follow up on referral. Spoke to Vy in admissions (ph# [phone]) who reported she had not looked at the referral yet. She reported they will not be taking any new admissions for at least 2 weeks. She reported they do not take new admissions from home either. MARCELLO Ayers
--- NOTE | 2020-10-15 15:23 | NUR ---
NURSING PROGRESS NOTE Legal hold: Voluntary. Report received from RN with use of SBAR Why are they here: Pt was brought into ED on 09/11/20, reportedly catatonic by . She was unable to speak or move. reports she was taken off lithium 41 days ago and since then has been going in and out of catatonia. She received her 2nd ECT on 09/10 and was reportedly doing okay after, but on 09/11 after a nap she was unable to speak or move, and was brought into [facility]. Per record reported that she had a similar episode 3 years ago. She was receiving ativan 1mg IV Q6H in ER which was a continued order for [facility]. Pt is currently on sodium chloride solution Q10H, 100/ML/HR. Pt has Right wrist IV, 20 G. Pt has gomes catheter 16 sri lankan, secured to left leg gravity draining clear, yellow. Per chart pt has been unable to urinate on her own and has a hx of hesitancy. IV fluids necessary due to inability to open mouth. Medical Hx per chart: Bipolar, anxiety, hypothyroidism, TBI Assessment: What has happened this shift: Received Pt in bed resting w/o distress at beginning of shift. Pt cooperative with vitals and was out of bed with assistance bathroom, then ambulated with assistance to community room for breakfast. Pt took AM meds without issue. She is hopeful that new med amantadine will help with shaking and muscle weakness. Pt talked daughter on phone and seemed to be encouraged by the phone call. Pt continues to ambulate with assistance to the bathroom and to community room for meals. Pt needs assistance making small decisions and needs to be prompted for adls, which were done at bedside. She is eating independently and is speaking with a little more volume. Overall she remains anxious and depressed yet engaging better with staff and appears more hopeful. S/I, H/I: Denies A/VH: Denies Sleep: napped ADL's: Patient assisted into and out of bed for bathroom; adls at bedside Group attendance: NA Were meds taken: Yes Any med S/E: None noted or observed. Mental Status Exam Appearance: Well groomed in green scrubs, hair fixed Eye contact: Good Behavior: cooperative Speech: speaking louder today Mood: Depressed Affect: Blunted Thought process: Circumstantial Thought Content: About physical abilities and going home Cognition: Alert Insight: Fair Judgment: Fair Interventions PRN's used: None Therapeutic interventions: 1:1 assessment, establishment of rapport, encouraged pt to express her thoughts and feelings, active listening, medication administration/education/monitoring, fall prevention, skin breakdown prevention, repositioning Q 2H in while in bed, encouragement to get up for meals, encouragement of food and fluids, encouragement to ambulate with assist. Restraints/seclusion/emergency medication: NA Justification of Continued Inpatient Treatment: Pt's LOC and function fluctuates, she needs medication adjustment and monitoring in a safe and therapeutic environment. Pt is gravely disabled.
[2020-10-15 19:41] VITALS: BP 111/71
[2020-10-15] MEDS: mirtazapine 15mg tablet PO SCH (20:34)
--- NOTE | 2020-10-15 21:34 | NUR ---
NURSING PROGRESS NOTE Legal hold: Voluntary. Report received from Dusty CABEZAS with use of SBAR Why are they here: Pt was brought into ED on 09/11/20, reportedly catatonic by . She was unable to speak or move. reports she was taken off lithium 41 days ago and since then has been going in and out of catatonia. She received her 2nd ECT on 09/10 and was reportedly doing okay after, but on 09/11 after a nap she was unable to speak or move, and was brought into [facility]. Per record reported that she had a similar episode 3 years ago. She was receiving ativan 1mg IV Q6H in ER which was a continued order for [facility]. Pt is currently on sodium chloride solution Q10H, 100/ML/HR. Pt has Right wrist IV, 20 G. Pt has gomes catheter 16 georgian, secured to left leg gravity draining clear, yellow. Per chart pt has been unable to urinate on her own and has a hx of hesitancy. IV fluids necessary due to inability to open mouth. Medical Hx per chart: Bipolar, anxiety, hypothyroidism, TBI Assessment: What has happened this shift: Pt was in bed at change of shift, uses call light for assistance with toileting and adl's. Pt reports trouble with dexterity and getting things off of her cabinet. She states she has been doing leg lifts and rotates her ankles in bed at night. She is more talkative tonight and affect has brightened. Pt is hopeful about new medication and states that she hopes physical therapy and meds will help her move more. She states she feels like her balance is off and doesnt feel stable when shes walking. S/I, H/I: Denies A/VH: Denies Sleep: see sleep hours ADL's: Patient assisted into and out of bed for bathroom; adls at bedside Group attendance: NA Were meds taken: Yes Any med S/E: None noted or observed. Mental Status Exam Appearance: Well groomed in green scrubs, hair fixed Eye contact: Good Behavior: cooperative Speech: speaking louder today Mood: Depressed Affect: Blunted Thought process: Circumstantial Thought Content: About physical abilities and going home Cognition: Alert Insight: Fair Judgment: Fair Interventions PRN's used: None Therapeutic interventions: 1:1 assessment, establishment of rapport, encouraged pt to express her thoughts and feelings, active listening, medication administration/education/monitoring, fall prevention, skin breakdown prevention, repositioning Q 2H in while in bed, encouragement to get up for meals, encouragement of food and fluids, encouragement to ambulate with assist. Restraints/seclusion/emergency medication: NA Justification of Continued Inpatient Treatment: Pt's LOC and function fluctuates, she needs medication adjustment and monitoring in a safe and therapeutic environment. Pt is gravely disabled.
[2020-10-16 07:35] VITALS: BP 130/70
[2020-10-16] MEDS: levoTHYROXINE 25mcg tablet PO SCH (08:08)
[2020-10-16] MEDS: lithium carbonate 150mg capsule PO SCH ×3 (08:08→20:04)
[2020-10-16] MEDS: LORazepam 0.5 MG tablet PO SCH ×3 (08:08→20:04)
[2020-10-16] MEDS: amantadine 100 MG capsule PO SCH ×2 (08:08→20:03)
[2020-10-16] MEDS: fluvoxamine 25 MG tablet PO SCH ×2 (08:08→20:03)
--- NOTE | 2020-10-16 11:54 | NUR ---
DISCHARGE PLANNING Contacted [facility] (# [phone]) regarding home health referral. They do take [employer] insurance and have availability. Faxed referral along with H&P at their request. Requested a call back. Contacted medical equipment providers and [employer] bills [employer]. Faxed request for wheelchair/dr's order. Requested delivery to [facility]. Scheduled Nano's follow up with PCP at [facility]. Previously scheduled follow up with Dr Uriostegui. MRACELLO Ayers
--- NOTE | 2020-10-16 12:56 | NUR ---
DISCHARGE PLANNING WITH Called Chrissy (ph# [phone]) to discuss discharge plan. 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 Informed him that he may receive a bill as Nano was covered up to the from insurance. He reported Medicare will pay for it if [employer] won't pay. He reported he consulted with a Medicare advocate and was assured Medicare would pay. Re-iterated he may receive a hospital bill. Informed him of Home Health referral to [facility] and provided him contact information. Informed him the Dr's order for a wheelchair was sent to [facility] and that they can deliver wheelchair to the hospital. Provided him with their phone # as he wanted a specific type of wheelchair. He requested a referral to out-patient physical therapy. Reminded him again that Nano cannot receive home health care and get a referral to out-patient PT. Informed him of Nano's follow up appointments with date and time with PCP and psychiatrist. Any other referrals needed can be addressed by Nano's PCP. MARCELLO Ayers
--- NOTE | 2020-10-16 13:24 | NUR ---
Received phone call from Leticia at [facility] (ph# [phone]) who reported they can accept Nano and work with her once discharged. MARCELLO Ayers
--- NOTE | 2020-10-16 16:26 | NUR ---
NURSING PROGRESS NOTE Legal hold: Voluntary. Report received from JOCELYNN Bettencourt with use of SBAR Why are they here: Pt was brought into ED on 09/11/20, reportedly catatonic by . She was unable to speak or move. reports she was taken off lithium 41 days ago and since then has been going in and out of catatonia. She received her 2nd ECT on 09/10 and was reportedly doing okay after, but on 09/11 after a nap she was unable to speak or move, and was brought into [facility]. Per record reported that she had a similar episode 3 years ago. She was receiving ativan 1mg IV Q6H in ER which was a continued order for [facility]. Pt is currently on sodium chloride solution Q10H, 100/ML/HR. Pt has Right wrist IV, 20 G. Pt has gomes catheter 16 samoan, secured to left leg gravity draining clear, yellow. Per chart pt has been unable to urinate on her own and has a hx of hesitancy. IV fluids necessary due to inability to open mouth. Medical Hx per chart: Bipolar, anxiety, hypothyroidism, TBI Assessment: What has happened this shift: Received pt sleeping in bed at shift change. Patient ambulates to the community room with assistance and walker. Patient up for periodic ambulation throughout shift. Walking with more confidence today. Pt cooperative with assessment, but talks very quietly and has very flat affect. Pt continues to endorse depression. She denies S.I. Patient attends all meals in community room. S/I, H/I: Denies A/VH: Denies.. Sleep: napped ADL's: Patient assisted into and out of bed, commode used at bedside. Group attendance: NA Were meds taken: Yes Any med S/E: None noted or observed. Mental Status Exam Appearance: Well groomed in green scrubs, hair fixed Eye contact: Good Behavior: cooperative, ambulates with assistance and walker. Speech: Soft, WNL. Mood: Depressed Affect: Blunted Thought process: circumstantial Thought Content: About physical abilities Cognition: Alert Insight: fair Judgment: fair Interventions PRN's used: None Therapeutic interventions: 1:1 assessment, establishment of rapport, encouraged pt to express her thoughts and feelings, active listening, medication administration/education/monitoring, fall prevention, skin breakdown prevention, repositioning Q 2H in while in bed, encouragement to get up for meals, encouragement of food and fluids, encouragement to ambulate with assist. Restraints/seclusion/emergency medication: NA Justification of Continued Inpatient Treatment: Pt's LOC and function fluctuates, she needs medication adjustment and monitoring in a safe and therapeutic environment. Pt is gravely disabled.
[2020-10-16 20:00] VITALS: BP 112/67
[2020-10-16] MEDS: mirtazapine 15mg tablet PO SCH (20:04)
--- NOTE | 2020-10-16 21:19 | NUR ---
NURSING PROGRESS NOTE Legal hold: Voluntary. Report received from JOCELYNN Bettencourt with use of SBAR Why are they here: Pt was brought into ED on 09/11/20, reportedly catatonic by . She was unable to speak or move. reports she was taken off lithium 41 days ago and since then has been going in and out of catatonia. She received her 2nd ECT on 09/10 and was reportedly doing okay after, but on 09/11 after a nap she was unable to speak or move, and was brought into [facility]. Per record reported that she had a similar episode 3 years ago. She was receiving ativan 1mg IV Q6H in ER which was a continued order for [facility]. Pt is currently on sodium chloride solution Q10H, 100/ML/HR. Pt has Right wrist IV, 20 G. Pt has gomes catheter 16 romanian, secured to left leg gravity draining clear, yellow. Per chart pt has been unable to urinate on her own and has a hx of hesitancy. IV fluids necessary due to inability to open mouth. Medical Hx per chart: Bipolar, anxiety, hypothyroidism, TBI Assessment: What has happened this shift: Received pt sleeping in bed at shift change. Pt met with provider jabari and requested meds. Pt denies s/i, she if future oriented hopes to go home soon and is hopeful she is going to improve her strength and states she ambulated today.Pt up to the commode with assistance and is med compliant. S/I, H/I: Denies A/VH: Denies.. Sleep: napped ADL's: Patient assisted into and out of bed, commode used at bedside. Group attendance: NA Were meds taken: Yes Any med S/E: None noted or observed. Mental Status Exam Appearance: Well groomed in green scrubs, hair fixed Eye contact: Good Behavior: cooperative, ambulates with assistance and walker. Speech: Soft, WNL. Mood: Depressed Affect: Blunted Thought process: circumstantial Thought Content: About physical abilities Cognition: Alert Insight: fair Judgment: fair Interventions PRN's used: None Therapeutic interventions: 1:1 assessment, establishment of rapport, encouraged pt to express her thoughts and feelings, active listening, medication administration/education/monitoring, fall prevention, skin breakdown prevention, repositioning Q 2H in while in bed, encouragement to get up for meals, encouragement of food and fluids, encouragement to ambulate with assist. Restraints/seclusion/emergency medication: NA Justification of Continued Inpatient Treatment: Pt's LOC and function fluctuates, she needs medication adjustment and monitoring in a safe and therapeutic environment. Pt is gravely disabled.
[2020-10-17] MEDS: levoTHYROXINE 25mcg tablet PO SCH (07:45)
[2020-10-17] MEDS: LORazepam 0.5 MG tablet PO SCH ×3 (07:45→20:39)
[2020-10-17] MEDS: lithium carbonate 150mg capsule PO SCH ×3 (07:46→20:26)
[2020-10-17] MEDS: amantadine 100 MG capsule PO SCH ×2 (07:46→20:26)
[2020-10-17] MEDS: fluvoxamine 25 MG tablet PO SCH ×2 (07:48→20:26)
[2020-10-17 07:53] VITALS: BP 135/76
--- NOTE | 2020-10-17 15:54 | NUR ---
NURSING PROGRESS NOTE Legal hold: Voluntary. Report received from JOCELYNN Bettencourt with use of SBAR Why are they here: Pt was brought into ED on 09/11/20, reportedly catatonic by . She was unable to speak or move. reports she was taken off lithium 41 days ago and since then has been going in and out of catatonia. She received her 2nd ECT on 09/10 and was reportedly doing okay after, but on 09/11 after a nap she was unable to speak or move, and was brought into [facility]. Per record reported that she had a similar episode 3 years ago. She was receiving ativan 1mg IV Q6H in ER which was a continued order for [facility]. Pt is currently on sodium chloride solution Q10H, 100/ML/HR. Pt has Right wrist IV, 20 G. Pt has gomes catheter 16 greek, secured to left leg gravity draining clear, yellow. Per chart pt has been unable to urinate on her own and has a hx of hesitancy. IV fluids necessary due to inability to open mouth. Medical Hx per chart: Bipolar, anxiety, hypothyroidism, TBI Assessment: What has happened this shift: Patient sleeping at change of shift and up before breakfast. Patient still needs help getting up out of bed and need one staff walking behind her. Patient shuffles her feet. Patient was weighed today on the standing scale and appears to have lost several kilograms. Patient speaking more clearly today. Patient denies Suicidal/homicidal ideation. Patient denies hearing voices. RN spoke to today and he asked if she was able to get up on her own and RN advised him she was not. he said "Oh no!" RN also advised him that he is going to need to have someone helping patient. S/I, H/I: Denies A/VH: Denies.. Sleep: napped ADL's: Patient assisted into and out of bed. Group attendance: None Were meds taken: Yes Any med S/E: None noted or observed. Mental Status Exam Appearance: Well groomed in green scrubs, hair fixed Eye contact: Good Behavior: cooperative, ambulates with assistance and walker. Speech: Soft, WNL. Mood: Depressed Affect: Flat Thought process: circumstantial Thought Content: About physical abilities Cognition: Alert Insight: fair Judgment: fair Interventions PRN's used: None Therapeutic interventions: 1:1 assessment, establishment of rapport, encouraged pt to express her thoughts and feelings, active listening, medication administration/education/monitoring, fall prevention, skin breakdown prevention, repositioning Q 2H in while in bed, encouragement to get up for meals, encouragement of food and fluids, encouragement to ambulate with assist. Restraints/seclusion/emergency medication: NA Justification of Continued Inpatient Treatment: Pt's LOC and function fluctuates, she needs medication adjustment and monitoring in a safe and therapeutic environment. Pt is gravely disabled.
[2020-10-17 19:40] VITALS: BP 118/65
[2020-10-17] MEDS: mirtazapine 15mg tablet PO SCH (20:25)
--- NOTE | 2020-10-18 04:39 | NUR ---
NURSING PROGRESS NOTE Legal hold: VOL Patient is on voluntary hold. Report received from JOCELYNN Hankins with use of SBAR Why are they here: Pt was brought into ED on 09/11/20, reportedly catatonic by . She was unable to speak or move. reports she was taken off lithium 41 days ago and since then has been going in and out of catatonia. She received her 2nd ECT on 09/10 and was reportedly doing okay after, but on 09/11 after a nap she was unable to speak or move, and was brought into [facility]. Per record reported that she had a similar episode 3 years ago. She was receiving ativan 1mg IV Q6H in ER which was a continued order for [facility]. Pt is currently on sodium chloride solution Q10H, 100/ML/HR. Pt has Right wrist IV, 20 G. Pt has gomes catheter 16 occitan, secured to left leg gravity draining clear, yellow. Per chart pt has been unable to urinate on her own and has a hx of hesitancy. IV fluids necessary due to inability to open mouth. Medical Hx per chart: Bipolar, anxiety, hypothyroidism, TBI Assessment: What has happened this shift: Patient observed socializing with peers and watching TV in the community room at the beginning of shift. Pleasant and cooperative with care; compliant with medication. Patient denies SI, HI, A/VH. She does not appear to be responding to IS and no delusional thought content expressed this shift. Patient continues to put more effort into completing tasks independently but continues to require staff assistance. Patient is observed sleeping and does not appear to be having difficulty. S/I, H/I: Denies A/VH: Denies Sleep: Refer to sleep assessment ADL's: Staff assist. Group attendance: NA Were meds taken: Yes Any med S/E: None observed or reported Mental Status Exam Appearance: Neat, clean and appropriate. Eye contact: Good Behavior: Pleasant and cooperative, socializing with peers Speech: Clear, soft, minimal Mood: Depressed Affect: Blunted Thought process: Linear Thought Content: Meeting needs Cognition: Alert Insight: Fair Judgment: Fair Interventions PRN's used: None Therapeutic interventions: 1:1 assessment, establishment of rapport, encouraged pt to express her thoughts and feelings, active listening, medication administration/education/monitoring, fall prevention, skin breakdown prevention, repositioning Q 2H in while in bed, encouragement to get up for meals, encouragement of food and fluids, encouragement to ambulate with assist. Restraints/seclusion/emergency medication: NA Justification of Continued Inpatient Treatment: Pt's LOC and function fluctuates, she needs medication adjustment and monitoring in a safe and therapeutic environment. Pt is gravely disabled.
[2020-10-18] MEDS: levoTHYROXINE 25mcg tablet PO SCH (07:43)
[2020-10-18 07:52] VITALS: BP 112/67
[2020-10-18] MEDS: amantadine 100 MG capsule PO SCH ×2 (07:58→20:41)
[2020-10-18] MEDS: lithium carbonate 150mg capsule PO SCH ×3 (07:59→20:41)
[2020-10-18] MEDS: LORazepam 0.5 MG tablet PO SCH ×2 (07:59→20:56)
[2020-10-18] MEDS: fluvoxamine 25 MG tablet PO SCH ×2 (07:59→20:41)
[2020-10-18] MEDS: docusate sod 100mg capsule PO SCH (13:57)
--- NOTE | 2020-10-18 15:22 | NUR ---
NURSING PROGRESS NOTE: Legal hold: Voluntary. Report received from RN Zoie Slaughter with use of SBAR Why are they here: Pt was brought into ED on 09/11/20, reportedly catatonic by . She was unable to speak or move. reports she was taken off lithium 41 days ago and since then has been going in and out of catatonia. She received her 2nd ECT on 09/10 and was reportedly doing okay after, but on 09/11 after a nap she was unable to speak or move, and was brought into [facility]. Per record reported that she had a similar episode 3 years ago. She was receiving ativan 1mg IV Q6H in ER which was a continued order for [facility]. Pt is currently on sodium chloride solution Q10H, 100/ML/HR. Pt has Right wrist IV, 20 G. Pt has gomes catheter 16 greenlandic, secured to left leg gravity draining clear, yellow. Per chart pt has been unable to urinate on her own and has a hx of hesitancy. IV fluids necessary due to inability to open mouth. Medical Hx per chart: Bipolar, anxiety, hypothyroidism, TBI Assessment: What has happened this shift: Pt is up out of bed for meals, she walks to the dining room with FWW and assist of one person. Pt showered today. Pt prefers to lie on her back in bed. Encouraged pt to allow staff to assist with repositioning with pillows in bed. Pt requested her "red pill" for constipation; Colace 100 mg PO daily reinstated. Pt reports that she is "stressed." Pt is anxious about pending discharge. Pt stated, "I made myself get up 4 times today...I just can't get up out of bed by myself, that's the problem." Pt expressed disapproval that she would have to use a walker at home. Pt stated, "I just don't feel like myself." Encouragement and positive reinforcement provided. Discussed home health and possibly some outpatient physical therapy eventually. Discussed modifications that could be done at home such as moving furniture around, shower bars, and transfers poles. Also discussed that it may be difficult for her to feel like herself when she has been in a hospital for a month and that sometimes people feel better and are actually motivated to do more in their home environment. Pt expressed understanding though remains apprehensive about discharge. Pt's Remeron was decreased to 30 mg HS. She has a new order for Clomipramine 50 mg HS. S/I, H/I: Pt denies. A/VH: Pt denies. Sleep: Pt slept 9 hours last night per noc shift report, pt naps after meals. ADL's: Pt requires 1 person assist with transfers, toileting, bathing, personal hygiene, and ambulation with FWW and gait belt. She can feed herself with set up and supervision. Group attendance: No Were meds taken: Yes Any med S/E: Pt did complain of meds making her sleepy and felt her Remeron dose was too high, also c/o constipation. Mental Status Exam Appearance: Clean neat older white-haired woman with hair pulled back in ponytail dressed in street clothes. Eye contact: Good Behavior: Calm, pleasant, cooperative, resistant to repositioning in bed. Speech: Clear, soft, audible. Mood: Mildly anxious and depressed. Affect: Flat Thought process: Linear Thought Content: Apprehensive of discharge as she is not back to her perceived baseline. Cognition: A/O X 4 Insight: Fair Judgment: Fair Interventions PRN's used: None Therapeutic interventions: 1:1 assessment, therapeutic conversation, active listening, medication administration/education/monitoring, fall prevention, skin breakdown prevention, encouraged repositioning in bed, encouragement to get up for meals, encouraged fluids, encouragement of increased autonomy in ADLs, assistance with ambulation to and from dining room for meals, 1 person extensive assist with ADLs, provided encouragement and positive reinforcement, Q 15 minute safety checks. Restraints/seclusion/emergency medication: N/A Justification of Continued Inpatient Treatment: Pt has had a decline in her physical function, cognitively she seems to be at baseline, she is A/O X 4 and able to make her needs known. Pt does not have any mental health symptoms acute enough to warrant continued hospitalization on a psych unit at this time. Plan is for pt to discharge home with and home health next week. Addendum: 10/18/20 at 1650 by Kaylee Lowe RN (Lee) Clomipramine D/c'd. Addendum: 10/18/20 at 1732 by Kaylee Lowe RN (Lee) Pt has orders for a 12 lead EKG tomorrow at 1000.
[2020-10-18] MEDS ORDERED: LORazepam 0.5 MG tablet PO PRN (16:55)
[2020-10-18 19:00] VITALS: BP 142/76
[2020-10-18] MEDS ORDERED: mirtazapine 15mg tablet PO SCH (21:00)
[2020-10-18] MEDS ORDERED: CLOMIPRAMINE HCL 50 MG CAPSULE PO SCH (21:00)
--- NOTE | 2020-10-19 04:38 | NUR ---
NURSING PROGRESS NOTE Legal hold: VOL Patient is on voluntary hold. Report received from JOCELYNN Hankins with use of SBAR Why are they here: Pt was brought into ED on 09/11/20, reportedly catatonic by . She was unable to speak or move. reports she was taken off lithium 41 days ago and since then has been going in and out of catatonia. She received her 2nd ECT on 09/10 and was reportedly doing okay after, but on 09/11 after a nap she was unable to speak or move, and was brought into [facility]. Per record reported that she had a similar episode 3 years ago. She was receiving ativan 1mg IV Q6H in ER which was a continued order for [facility]. Pt is currently on sodium chloride solution Q10H, 100/ML/HR. Pt has Right wrist IV, 20 G. Pt has gomes catheter 16 kyrgyz, secured to left leg gravity draining clear, yellow. Per chart pt has been unable to urinate on her own and has a hx of hesitancy. IV fluids necessary due to inability to open mouth. Medical Hx per chart: Bipolar, anxiety, hypothyroidism, TBI Assessment: What has happened this shift: Patient observed in bed awake at the beginning of shift. Pleasant and cooperative with care; compliant with medication. Patient is ambulating with use FFW and person assist to use the restroom. Early in the shift patient expressed being "paranoid" when male staff was not available to assist with ambulating but she was able to work through while talking to staff and later in the shift she expressed gratitude toward staff and was ambulating confidently with the same staff. Patient denies SI, HI, A/VH. She does not appear to be responding to IS and no delusional thought content expressed. Patient did not participate in HS snack this shift. She is observed sleeping and does not appear to be having difficulty. S/I, H/I: Denies A/VH: Denies Sleep: Refer to sleep assessment ADL's: Staff assist. Group attendance: NA Were meds taken: Yes Any med S/E: None observed or reported Mental Status Exam Appearance: Neat, clean and appropriate. Eye contact: Good Behavior: Pleasant and cooperative, socializing appropriately with staff Speech: Clear, soft, minimal Mood: Euphoric Affect: Congruent to mood Thought process: Linear Thought Content: Meeting needs Cognition: Alert Insight: Fair Judgment: Fair Interventions PRN's used: None Therapeutic interventions: 1:1 assessment, establishment of rapport, encouraged pt to express her thoughts and feelings, active listening, medication administration/education/monitoring, fall prevention, skin breakdown prevention, repositioning Q 2H in while in bed, encouragement to get up for meals, encouragement of food and fluids, encouragement to ambulate with assist. Restraints/seclusion/emergency medication: NA Justification of Continued Inpatient Treatment: Pt's LOC and function fluctuates, she needs medication adjustment and monitoring in a safe and therapeutic environment. Pt is gravely disabled.
[2020-10-19 07:39] VITALS: BP 129/73
[2020-10-19] MEDS: levoTHYROXINE 25mcg tablet PO SCH (07:41)
[2020-10-19] MEDS: lithium carbonate 150mg capsule PO SCH ×3 (08:25→20:09)
[2020-10-19] MEDS: docusate sod 100mg capsule PO SCH (08:25)
[2020-10-19] MEDS: LORazepam 0.5 MG tablet PO SCH ×2 (08:25→20:09)
[2020-10-19] MEDS: fluvoxamine 25 MG tablet PO SCH ×2 (08:26→20:09)
[2020-10-19] MEDS: amantadine 100 MG capsule PO SCH ×2 (08:26→20:09)
--- NOTE | 2020-10-19 14:50 | NUR ---
Nursing Progress Note: Legal hold: Voluntary Client on voluntary for GD Report received from nurse with use of SBAR: Zoie Slaughter RN Why are they here: Pt was brought into ED on 09/11/20, reportedly catatonic by . She was unable to speak or move. reports she was taken off lithium 41 days ago and since then has been going in and out of catatonia. She received her 2nd ECT on 09/10 and was reportedly doing okay after, but on 09/11 after a nap she was unable to speak or move, and was brought into [facility]. Per record reported that she had a similar episode 3 years ago. She was receiving ativan 1mg IV Q6H in ER which was a continued order for [facility]. Pt is currently on sodium chloride solution Q10H, 100/ML/HR. Pt has Right wrist IV, 20 G. Pt has gomes catheter 16 greenlandic, secured to left leg gravity draining clear, yellow. Per chart pt has been unable to urinate on her own and has a hx of hesitancy. IV fluids necessary due to inability to open mouth. Medical Hx per chart: Bipolar, anxiety, hypothyroidism, TBI Assessment What has happened this shift: Received pt. sleeping in bed at the beginning of the shift, she was awoken by staff and assisted to to the Group Room for breakfast. Pt. continues to ambulate with use of FWW and minimal assistance from one-staff member. She exhibits continued shuffled gait, however movements are less rigid and more fluid. Pt. required minimal assistance from this staff member to ambulate back to bed and 1:1 completed at bedside. Pt. presents as cooperative, anxious, and withdraw, however her speech is more audible and she is able to express herself more freely. Pt. denies any S/I, HI, A/V/YIN, and no delusional statements made. She does report some ongoing depression and an increase in anxiety r/t her upcoming discharge tomorrow. When questioned further regarding this anxiety pt. states, "It's the gap in care between here and home." She then admits her will be taking some time off from work to help care for her. Pt. naps intermittently, however remains up in the Group Room throughout most of the day, but is withdrawn from others. At approximately 1500, pt. becomes increasingly anxious r/t not being able to attend the scheduled meeting between SHELBY Samayoa and her regarding her home care r/t ongoing COVID precautions. One-time order for Ativan 0.5mg given, medication administered and will continue to monitor. Scheduled 12-lead EKG to monitor for changes read by ER MD Magana and WNL, no new orders obtained. S/I, H/I: Denies A/VH: Denies, does not appear to be internally preoccupied Sleep: Pt. reports she did not sleep well last night r/t anxiety r/t upcoming discharge, however sleep hours are 7.25. ADL's: Pt. ambulates with use of FWW and minimal assistance from one-staff member. Gait-belt around waist when ambulating. Psychomotor dystonia with continued shuffled gait. Group attendance: N/A Were meds taken: Yes Any med S/E: None Mental Status Exam Appearance: Neat and appropriately dressed Eye contact: Good, intense at times Behavior: Cooperative, anxious, and withdrawn Speech: Soft, mumbles at times, but increasingly able to express herself more freely Mood: Anxious Affect: Flat Thought process:[] Thought Content:[] Cognition: A&O X4 Insight: Fair Judgment: Fair Interventions PRN's used: None Therapeutic interventions:[] Restraints/seclusion/emergency medication:[] Justification of Continued Inpatient Treatment: Per SHELBY Samayoa, pt. continues to require a safe and therapeutic environment and will discharge home with her after Home Health Care is set up.
[2020-10-19] MEDS ORDERED: LORazepam 0.5 MG tablet PO ONE (14:55)
[2020-10-19] MEDS ORDERED: DOCU100C40 PO (15:53)
[2020-10-19] MEDS ORDERED: MIRT15TA8 PO (15:53)
[2020-10-19] MEDS ORDERED: LEVO25TA7 PO (15:53)
[2020-10-19] MEDS ORDERED: Lorazepam PO (15:53)
[2020-10-19] MEDS ORDERED: ASCO500C18 PO (15:53)
[2020-10-19] MEDS ORDERED: FLUV150C2 PO (15:53)
[2020-10-19] MEDS ORDERED: AMA100C PO (15:53)
[2020-10-19] MEDS ORDERED: LITH150C8 PO (15:53)
[2020-10-19 19:29] VITALS: BP 132/75
[2020-10-19] MEDS ORDERED: mirtazapine 15mg tablet PO SCH (21:00)
--- NOTE | 2020-10-20 04:07 | NUR ---
NURSING PROGRESS NOTE Legal hold: VOL Patient is on voluntary hold. Report received from JOCELYNN Hankins with use of SBAR Why are they here: Pt was brought into ED on 09/11/20, reportedly catatonic by . She was unable to speak or move. reports she was taken off lithium 41 days ago and since then has been going in and out of catatonia. She received her 2nd ECT on 09/10 and was reportedly doing okay after, but on 09/11 after a nap she was unable to speak or move, and was brought into [facility]. Per record reported that she had a similar episode 3 years ago. She was receiving ativan 1mg IV Q6H in ER which was a continued order for [facility]. Pt is currently on sodium chloride solution Q10H, 100/ML/HR. Pt has Right wrist IV, 20 G. Pt has gomes catheter 16 wolof, secured to left leg gravity draining clear, yellow. Per chart pt has been unable to urinate on her own and has a hx of hesitancy. IV fluids necessary due to inability to open mouth. Medical Hx per chart: Bipolar, anxiety, hypothyroidism, TBI Assessment: What has happened this shift: Patient observed laying in bed awake at the beginning of shift. She is pleasant and cooperative with care; compliant with medication. Patient denies SI, HI, A/VH. She does not appear to be responding to IS and no delusional thought content expressed. Patient reports "looking forward but anxious" about discharge to home. She continues to ambulate well with one person assist and use FFW. Patient remained in bed throughout the shift; only getting up to use the restroom. Patient is observed sleeping and does not appear to be having difficulty. S/I, H/I: Denies A/VH: Denies Sleep: Refer to sleep assessment ADL's: Staff assist. Group attendance: NA Were meds taken: Yes Any med S/E: None observed or reported Mental Status Exam Appearance: Neat, clean and appropriate. Eye contact: Good Behavior: Pleasant and cooperative, socializing appropriately with staff Speech: Clear, soft, minimal Mood: "Anxious" also bright Affect: Congruent to mood Thought process: Linear Thought Content: Meeting needs and discharge Cognition: Alert Insight: Fair Judgment: Fair Interventions PRN's used: None Therapeutic interventions: 1:1 assessment, establishment of rapport, encouraged pt to express her thoughts and feelings, active listening, medication administration/education/monitoring, fall prevention, skin breakdown prevention, repositioning Q 2H in while in bed, encouragement to get up for meals, encouragement of food and fluids, encouragement to ambulate with assist. Restraints/seclusion/emergency medication: NA Justification of Continued Inpatient Treatment: Pt's LOC and function fluctuates, she needs medication adjustment and monitoring in a safe and therapeutic environment. Pt is gravely disabled.
[2020-10-20 07:45] VITALS: BP 120/74
[2020-10-20] MEDS: levoTHYROXINE 25mcg tablet PO SCH (07:48)
[2020-10-20] MEDS: lithium carbonate 150mg capsule PO SCH (08:21)
[2020-10-20] MEDS: docusate sod 100mg capsule PO SCH (08:21)
[2020-10-20] MEDS: amantadine 100 MG capsule PO SCH (08:21)
[2020-10-20] MEDS: fluvoxamine 25 MG tablet PO SCH (08:21)
[2020-10-20] MEDS: LORazepam 0.5 MG tablet PO SCH (08:22)
--- NOTE | 2020-10-20 10:43 | NUR ---
Nursing Progress Note: Legal hold: Voluntary Client on voluntary for GD Report received from nurse with use of SBAR: JOCELYNN Tinoco Why are they here: Pt was brought into ED on 09/11/20, reportedly catatonic by . She was unable to speak or move. reports she was taken off lithium 41 days ago and since then has been going in and out of catatonia. She received her 2nd ECT on 09/10 and was reportedly doing okay after, but on 09/11 after a nap she was unable to speak or move, and was brought into [facility]. Per record reported that she had a similar episode 3 years ago. She was receiving ativan 1mg IV Q6H in ER which was a continued order for [facility]. Pt is currently on sodium chloride solution Q10H, 100/ML/HR. Pt has Right wrist IV, 20 G. Pt has gomes catheter 16 tanzanian, secured to left leg gravity draining clear, yellow. Per chart pt has been unable to urinate on her own and has a hx of hesitancy. IV fluids necessary due to inability to open mouth. Medical Hx per chart: Bipolar, anxiety, hypothyroidism, TBI Assessment What has happened this shift: Received pt. sleeping in bed at the beginning of the shift, she was again awoken by staff and assisted to to the Group Room for breakfast. Pt. continues to ambulate with use of FWW and minimal assistance from one-staff member. She exhibits continued shuffled gait, however movements are less rigid and more fluid. Pt. greets this investment underwriter appropriately and when questioned regarding sleep states, "It was so good that I didn't want to get up!" She continues to deny S/I, and reports that her anxiety has decreased. Pt. reports some ongoing depression, and states, "It's underlying," however admits she feels her medications are working. Pt. continues to perseverate on her upcoming discharge and questions this investment underwriter regarding the discharge process. She later speaks with Dr. Crain and is informed that she will indeed be discharging this afternoon. She is assisted back to bed where she naps intermittently and then requests to ambulate back to the Group Room. Pt's speech continues to be more fluid, and she appears better able to make decisions. S/I, H/I: Denies A/VH: Denies, does not appear to be internally preoccupied Sleep: Pt. states, "It was so good that I didn't want to get up!" Sleep hours are 9.75 ADL's: Pt. ambulates with use of FWW and minimal assistance from one-staff member. Gait-belt around waist when ambulating. Psychomotor dystonia with continued shuffled gait. Group attendance: N/A Were meds taken: Yes Any med S/E: None Mental Status Exam Appearance: Neat and appropriately dressed Eye contact: Good, intense at times Behavior: Cooperative, anxious, and withdrawn Speech: Soft, mumbles at times, but increasingly able to express herself more freely Mood: Anxious Affect: Flat Thought process:[] Thought Content:[] Cognition: A&O X4 Insight: Fair Judgment: Fair Interventions PRN's used: None Therapeutic interventions:[] Restraints/seclusion/emergency medication:[] Justification of Continued Inpatient Treatment: SHELBY Thompson, pt. continues to require a safe and therapeutic environment and will discharge home with her after Home Health Care is set up.
--- NOTE | 2020-10-20 10:50 | NUR ---
Reassessment: Pt PO fluctuates though overall ~50-75% avg meals past 6 days meeting needs on vegetarian/MM5 diet per [employer] recs. Last BM 10/17. Noted a 7 kg difference in weight in one week likely r/t bedscale versus standing scale, unlikely to have that amount of wt loss in a short time frame. Will continue to monitor. Rec: 1. continue minced and moist grind all vegetarian diet with thin liquids per ST recs 2. MVI supplementation on vegetarian diet 3. routine bowel care 4. weekly wts Addendum: 10/20/20 at [address] Amended: Links added.
--- NOTE | 2020-10-20 12:10 | NUR ---
Discharge Note: Pt. discharged from the unit and taken in a w/c down to meet her in the lobby by this report writer. Belongings were previously inventoried and returned to pt. by tech. Medications and follow-up instructions were reviewed with pt. and pt's by this report writer and they reported understanding. Medication called into pt's preferred pharmacy, and no smoking replacement required. Pt. is able to contract for safety. She was helped into her 's vehicle by this report writer.
== END 2020-10-20 12:10 | disposition home or self-care (01) | DRG 885 ==
LOC: ADULT MH 22:14
PROVIDERS: ADMIT Psychiatry & Neurology Psychiatry; ATTEND Psychiatry & Neurology Psychiatry
DX: F31.4 Bipolar disorder, current episode depressed, severe, without psychotic features (principal); N18.30 Chronic kidney disease, stage 3 unspecified; N39.0 Urinary tract infection, site not specified; R13.10 Dysphagia, unspecified; F20.2 Catatonic schizophrenia; E03.9 Hypothyroidism, unspecified; E87.6 Hypokalemia; K59.00 Constipation, unspecified; G24.9 Dystonia, unspecified; F44.89 Other dissociative and conversion disorders; I12.9 Hypertensive chronic kidney disease with stage 1 through stage 4 chronic kidney disease, or unspecified chronic kidney disease; F43.12 Post-traumatic stress disorder, chronic; R26.2 Difficulty in walking, not elsewhere classified; R32 Unspecified urinary incontinence; Z74.01 Bed confinement status; Z90.710 Acquired absence of both cervix and uterus; Z91.410 Personal history of adult physical and sexual abuse; Z79.899 Other long term (current) drug therapy; Z88.8 Allergy status to other drugs, medicaments and biological substances
CPT/HCPCS: 36415; 80048; 80053; 80061; 80178; 81001; 82550; 83036; 83735; 84132; 84439; 84443; 84480; 85025; 85651; 87077; 87081; 87088; 87186; 92508; 92616; 93005; 97116; 97161; 97530; J0515; J2060; J7030

== ENCOUNTER → 2020-09-11 | Emergency (ER) | payer BC, OTHER ==
[~2020-09-11] VITALS: Ht 165.1 cm; Wt 59.1 kg
[~2020-09-11] MED LIST: AMA100C PO; ASCO500C18 PO; COL100C PO; FLUV100T3 PO; FLUV50TA3 PO; LEVO75TA7 PO; LIT300C PO; LORazepam 0.5 MG tablet PO PRN; LORazepam 2 mg/ml vial IV ONE; MIRT30TA8 PO; fluvoxamine 25 MG tablet PO SCH; levoTHYROXINE 25mcg tablet PO SCH; lithium carbonate 150mg capsule PO SCH; lithium carbonate 150mg capsule PO STA; mirtazapine 15mg tablet PO SCH; normal saline 1000ml 1,000 ML IV ONE
[2020-09-11 15:10] LABS: BASOPHILS % (AUTO) 0.6 % (0-1); EOSINOPHILS % (AUTO) 0.3 % (0-6); HEMATOCRIT 39.8 % (35.0-45.0); HEMOGLOBIN 13.5 g/dl (12.0-16.0); LYMPHOCYTES # (AUTO) 1.2 X10'3 (1.1-4.8); MEAN CORPUSCULAR HEMOGLOBIN 32.9 PG (27.0-31.0); MEAN CORPUSCULAR HGB CONC 33.9 g/dL (33.0-36.5); MEAN PLATELET VOLUME 9.2 FL (7.4-10.4); MONOCYTES # (AUTO) 0.7 X10'3 (0-0.9); MONOCYTES % (AUTO) 8.6 % (2-12); NEUTROPHILS # (AUTO) 6.3 X10'3 (1.8-7.7); NEUTROPHILS % (AUTO) 76.5 % (42-75); PLATELET COUNT 243 X10'3 (140-440); RED CELL DISTRIBUTION WIDTH 13.4 % (11.5-14.5); WHITE BLOOD COUNT 8.3 X10'3 (4.5-11.0)
[2020-09-11 15:11] LABS: CLARITY,URINE CLEAR (Clear); COLOR,URINE STRAW (Yellow); GLUCOSE, URINE NEGATIVE (Neg); KETONES,URINE TRACE mg/dl (Neg); LEUKOCYTE ESTERASE ,URINE NEGATIVE (Neg); NITRITES, URINE NEGATIVE (Neg); OCCULT BLOOD,URINE NEGATIVE (Neg); PH,URINE 7.5 (4.8-8.0); PROTEIN,URINE NEGATIVE (Neg); UA COLLECTION TYPE FOLEY CATH; UROBILINOGEN,URINE 0.2 E.U/dL (0.2-1.0)
[2020-09-11 15:14] LABS: ALANINE AMINOTRANSFERASE 20 U/L (12-78); ALBUMIN 3.7 G/DL (3.4-5.0); ALBUMIN/GLOBULIN RATIO 1.1 (1.1-1.5); ALKALINE PHOSPHATASE 85 IU/L (46-116); ANION GAP 10 (8-16); ASPARTATE AMINO TRANSFERASE 15 U/L (10-37); BILIRUBIN,TOTAL 0.4 MG/DL (0.1-1.0); BLOOD UREA NITROGEN 11 MG/DL (7-18); BUN/CREATININE RATIO 9.8 (6.6-38.0); CALCIUM 9.8 MG/DL (8.5-10.1); CHLORIDE 109 MMOL/L (99-107); CREATININE 1.12 MG/DL (0.40-0.90); GLUCOSE 96 MG/DL (70-104); POTASSIUM 3.8 MMOL/L (3.5-5.1); SODIUM 147 MMOL/L (135-145); TOTAL CARBON DIOXIDE 28.2 MMOL/L (24-32); eGFR 49 ML/MIN
[2020-09-11 15:19] LABS: URINE AMPHETAMINE SCREEN NEGATIVE (Neg); URINE BARBITUATE SCREEN NEGATIVE (Neg); URINE BENZODIAZEPINES SCREEN NEGATIVE (Neg); URINE CANNABINOID SCREEN NEGATIVE (Neg); URINE COCAINE SCREEN NEGATIVE (Neg); URINE METHADONE SCREEN NEGATIVE (Neg); URINE OPIATE SCREEN NEGATIVE (Neg); URINE PHENCYCLIDINE SCREEN NEGATIVE (Neg)
[2020-09-11 15:24] LABS: CREATINE KINASE 22 U/L (26-192)
[2020-09-11 15:25] LABS: ETHANOL < 0.010 GM/DL (0.0-0.010)
--- NOTE | 2020-09-11 18:11 | NUR ---
PACKET FAXED TO [facility]
--- NOTE | 2020-09-11 18:28 | NUR ---
EMPTIED 400 ML OF URINE.
--- NOTE | 2020-09-11 19:45 | NUR ---
pt making eye contact, not responding with rigid body fixation
[2020-09-11 20:34] VITALS: BP 103/66
--- NOTE | 2020-09-11 21:00 | NUR ---
scmh at bedside
--- NOTE | 2020-09-11 21:16 | NUR ---
md aware of pt unable to swallow and meds not given earlier. orders received for ativan iv
== END ==
LOC: ER 14:30 → CMPBEDREQ 09-18 03:22
DX: F20.2 Catatonic schizophrenia (principal); F32.9 Major depressive disorder, single episode, unspecified; Z88.8 Allergy status to other drugs, medicaments and biological substances; Z79.899 Other long term (current) drug therapy
CPT/HCPCS: 36415; 80053; 80305; 80320; 81003; 82550; 84443; 85025; 93005; 96361; 96374; 96376; 99285; J2060; J7030